=== PATIENT | male | born 1955 | race Caucasian/White ===

== ENCOUNTER 2017-08-01 13:12 | Inpatient (IN) | payer BC, MEDICAID ==
[2017-08-01] MEDS ORDERED: Levofloxacin 750 MG IVPREMIX(* 750 MG/150 ML BAG IVPB ONE (14:38)
[2017-08-01 15:19] LABS: ABS Basophils 0 10^3/ul (0-0.2); ABS Eosinophils 0.3 10^3/ul (0-0.6); ABS Lymphocytes 1.4 10^3/ul (1.0-4.8); ABS Neutrophils 5.6 10^3/ul (1.5-7.7); ABS Nucleated RBC 0 10^3/ul; Eosinophil % 3.6 % (0-6); Hematocrit 44 % (42-52); Hemoglobin 14.7 g/dl (14.0-18.0); Lymphocyte % 16.4 % (25-47); Mean Corpuscular HGB Conc 33 g/dl (31-36); Mean Corpuscular Hemoglobin 32 pg (27-31); Mean Corpuscular Volume 96 fL (80-94); Mean Platelet Volume 8 um3 (7.4-10.4); Nucleated Red Blood Cells % 0; Platelet Count 215 10^3/ul (150-450); Red Blood Count 4.58 10^6/ul (4.0-5.4); Red Cell Distribution Width 14 % (10.5-15); White Blood Count 8.3 10^3/ul (3.5-10.8)
[2017-08-01] MEDS ORDERED: LORazepam INJ* 2 MG/ML 1 ML VIAL IV PUSH ONE ×2 (15:27→16:31)
[2017-08-01 15:35] LABS: INR 1.01 (0.77-1.02)
[2017-08-01 15:36] LABS: EGFR Non-African American 100.9 (>60)
[2017-08-01] MEDS ORDERED: Morphine INJ* 4 MG/ML 1 ML CARPUJECT IV ONE (16:30)
--- NOTE | 2017-08-01 16:57 | ED ---
Skin Complaint - HPI Summary HPI Summary: Patient is a 62yo M with a history of dementia and parkinsons arrives to the ED from wound clinic with . He is currently living at [facility]. He has been on antibiotics for 2 weeks (clindamycin) for the thumb infection, however it appears to be woresening and now having more depth, possibly to the bone. Wound clinic sent him directly here. He has not had any fevers, sweats or chills. Patient is non-verbal. His right hand is severely contracted and it is hard to evaluated. Patient remains on levodopa and ativan daily. DNR status. healthcare proxy. - History of Current Complaint Chief Complaint: EDExtremityUpper Time Seen by Provider: 08/01/17 14:10 Stated Complaint: RT THUMB INFECTION-SENT F/WOUND CTR Hx Obtained From: Family/Barmaid Onset/Duration: Started Weeks Ago, Atraumatic Skin Exposure Onset/Duration: Hours Ago Timing: Constant Onset Severity: Moderate Current Severity: Moderate Pain Intensity: 0 Pain Scale Used: Adult Non Verbal Skin Location: Hand Character: Swelling, Pruritus, Pain Aggravating Symptom(s): Nothing Alleviating Symptom(s): Nothing Associated Signs & Symptoms: Drainage, Red Streaks, Joint Swelling - Allergy/Home Medications Allergies/Adverse Reactions: Allergies Allergy/AdvReac Type Severity Reaction Status Date / Time Sulfa Antibiotics Allergy Rash Verified 08/01/17 14:16 Home Medications: Home Medications Acetaminophen TAB* [Tylenol TAB*] 650 mg PO Q4H PRN MDD 3000mg 08/01/17 [ History Confirmed 08/01/17] Carbidopa/Levodop 25/100 MG(*) [Sinemet 25/100 TAB(*)] 3 tab PO .@0700, 1130, 1800 08/01/17 [History Confirmed 08/01/17] Glycerin ADULT SUPP* 1 supp WV DAILY PRN 08/01/17 [History Confirmed 08/01/17] Ibuprofen TAB* [Advil TAB*] 400 mg PO Q8H 08/01/17 [History Confirmed 08/01/17] Ibuprofen-Diphenhydramine Citr [Advil Pm] 2 tab PO BEDTIME 08/01/17 [History Confirmed 08/01/17] Ketoconazole 2 % CREAM (NF) [Nizoral 2% CREAM (NF)] 1 applic TOPICAL BID [History Confirmed 08/01/17] LORazepam TAB(*) [Ativan 1 MG TAB (*)] 1 mg PO BID 08/01/17 [History Confirmed 08/01/17] LORazepam TAB(*) [Ativan 1 MG TAB (*)] 2 mg PO BEDTIME 08/01/17 [History Confirmed 08/01/17] Lactulose* 15 ml PO DAILY 08/01/17 [History Confirmed 08/01/17] Magnesium Hydroxide LIQ* [Milk of Magnesia LIQ*] 30 ml PO DAILY PRN 08/01/17 [ History Confirmed 08/01/17] Mometasone Furoate 0.1 % TOPICAL BID 08/01/17 [History Confirmed 08/01/17] Oxybutynin XL TAB* [Ditropan XL TAB*] 10 mg PO DAILY 08/01/17 [History Confirmed 08/01/17] PARoxetine HCL TAB* [Paxil TAB*] 10 mg PO DAILY 08/01/17 [History Confirmed 06/08] Pantoprazole TAB (NF) [Protonix TAB (NF)] 40 mg PO DAILY 08/01/17 [History Confirmed 08/01/17] Sodium Phosphate ADULT ENEMA* [Fleet Enema*] 1 enema WV DAILY PRN 08/01/17 [ History Confirmed 08/01/17] Zolpidem CR (NF) [Ambien CR (NF)] 12.5 mg PO BEDTIME 08/01/17 [History Confirmed 08/01/17] PMH/Surg Hx/FS Hx/Imm Hx Previously Healthy: No - Immunization History Hx Pertussis Vaccination: No Immunizations Up to Date: Unable to Obtain/Confirm Infectious Disease History: No Infectious Disease History: Denies: Traveled Outside the [place] in Last 30 Days - Social History Occupation: Unemployed [facility] Alcohol Use: Occasionally Hx Substance Use: Yes Substance Use Type: Reports: Prescribed Hx Tobacco Use: Yes Smoking Status (MU): Former Smoker Review of Systems Constitutional: Negative Negative: Fever, Chills, Fatigue Eyes: Negative Cardiovascular: Negative Respiratory: Negative Genitourinary: Negative Positive: no symptoms reported, see HPI Positive: Arthralgia, Myalgia Positive: Rash Neurological: Negative All Other Systems Reviewed And Are Negative: Yes Physical Exam Triage Information Reviewed: Yes Vital Signs On Initial Exam: Initial Vitals Temp Pulse Resp BP Pulse Ox 97.8 F 89 20 112/49 94 08/01/17 13:16 08/01/17 13:16 08/01/17 13:16 08/01/17 13:16 08/01/17 13:16 Vital Signs Reviewed: Yes Appearance: Positive: Well-Appearing, Well-Nourished Skin: Positive: Tender, Weeping Skin/Lesions Head/Face: Positive: Normal Head/Face Inspection Eyes: Positive: EOMI, SWATI, Conjunctiva Clear Neck: Positive: Supple, No Lymphadenopathy Respiratory/Lung Sounds: Positive: Clear to Auscultation, Breath Sounds Present Cardiovascular: Positive: RRR, Pulses are Symmetrical in both Upper and Lower Extremities Musculoskeletal: Positive: Pain @ - right thumb with swelling and erythema Neurological: Positive: Other - non-verbal Psychiatric: Positive: Normal, Affect/Mood Appropriate AVPU Assessment: Alert Diagnostics - Vital Signs Vital Signs Temp Pulse Resp BP Pulse Ox 08/01/17 16:49 16 08/01/17 16:41 16 08/01/17 15:38 16 08/01/17 13:16 97.8 F 89 20 112/49 94 - Laboratory Lab Results: Lab Results 08/01/17 08/01/17 08/01/17 Range/Units 15:06 15:06 15:06 WBC 8.3 (3.5-10.8) 10^3/ul RBC 4.58 (4.0-5.4) 10^6/ul Hgb 14.7 (14.0-18.0) g/dl Hct 44 (42-52) % MCV 96 H (80-94) fL MCH 32 H (27-31) pg MCHC 33 (31-36) g/dl RDW 14 (10.5-15) % Plt Count 215 (150-450) 10^3/ul MPV 8 (7.4-10.4) um3 Neut % (Auto) 67.8 (38-83) % Lymph % (Auto) 16.4 L (25-47) % Ida % (Auto) 11.7 H (1-9) % Eos % (Auto) 3.6 (0-6) % Baso % (Auto) 0.5 (0-2) % Absolute Neuts (auto) 5.6 (1.5-7.7) 10^3/ul Absolute Lymphs (auto) 1.4 (1.0-4.8) 10^3/ul Absolute Monos (auto) 1.0 H (0-0.8) 10^3/ul Absolute Eos (auto) 0.3 (0-0.6) 10^3/ul Absolute Basos (auto) 0 (0-0.2) 10^3/ul Absolute Nucleated RBC 0 10^3/ul Nucleated RBC % 0 ESR 46 H (0-20) mm/Hr INR (Anticoag Therapy) (0.77-1.02) Sodium 138 (133-145) mmol/L Potassium 4.4 (3.5-5.0) mmol/L Chloride 103 (101-111) mmol/L Carbon Dioxide 28 (22-32) mmol/L Anion Gap 7 (2-11) mmol/L BUN 30 H (6-24) mg/dL Creatinine 0.78 (0.67-1.17) mg/dL Est GFR ( Amer) 129.7 (>60) Est GFR (Non-Af Amer) 100.9 (>60) BUN/Creatinine Ratio 38.5 H (8-20) Glucose 100 (70-100) mg/dL Lactic Acid 1.9 (0.5-2.0) mmol/L Calcium 9.7 (8.6-10.3) mg/dL Total Bilirubin 0.40 (0.2-1.0) mg/dL AST 18 (13-39) U/L ALT 5 L (7-52) U/L Alkaline Phosphatase 64 (34-104) U/L C-Reactive Protein 55.27 H (< 5.00) mg/L Total Protein 7.3 (6.4-8.9) g/dL Albumin 4.2 (3.2-5.2) g/dL Globulin 3.1 (2-4) g/dL Albumin/Globulin Ratio 1.4 (1-3) 08/01/17 Range/Units 15:06 WBC (3.5-10.8) 10^3/ul RBC (4.0-5.4) 10^6/ul Hgb (14.0-18.0) g/dl Hct (42-52) % MCV (80-94) fL MCH (27-31) pg MCHC (31-36) g/dl RDW (10.5-15) % Plt Count (150-450) 10^3/ul MPV (7.4-10.4) um3 Neut % (Auto) (38-83) % Lymph % (Auto) (25-47) % Ida % (Auto) (1-9) % Eos % (Auto) (0-6) % Baso % (Auto) (0-2) % Absolute Neuts (auto) (1.5-7.7) 10^3/ul Absolute Lymphs (auto) (1.0-4.8) 10^3/ul Absolute Monos (auto) (0-0.8) 10^3/ul Absolute Eos (auto) (0-0.6) 10^3/ul Absolute Basos (auto) (0-0.2) 10^3/ul Absolute Nucleated RBC 10^3/ul Nucleated RBC % ESR (0-20) mm/Hr INR (Anticoag Therapy) 1.01 (0.77-1.02) Sodium (133-145) mmol/L Potassium (3.5-5.0) mmol/L Chloride (101-111) mmol/L Carbon Dioxide (22-32) mmol/L Anion Gap (2-11) mmol/L BUN (6-24) mg/dL Creatinine (0.67-1.17) mg/dL Est GFR ( Amer) (>60) Est GFR (Non-Af Amer) (>60) BUN/Creatinine Ratio (8-20) Glucose (70-100) mg/dL Lactic Acid (0.5-2.0) mmol/L Calcium (8.6-10.3) mg/dL Total Bilirubin (0.2-1.0) mg/dL AST (13-39) U/L ALT (7-52) U/L Alkaline Phosphatase (34-104) U/L C-Reactive Protein (< 5.00) mg/L Total Protein (6.4-8.9) g/dL Albumin (3.2-5.2) g/dL Globulin (2-4) g/dL Albumin/Globulin Ratio (1-3) Result Diagrams: 08/01/17 15:06 08/01/17 15:06 Lab Statement: Any lab studies that have been ordered have been reviewed, and results considered in the medical decision making process. Course/Dx - Course Course Of Treatment: Patient is evaluated for right thumb infection which is extending into the first finger of the right hand. Erythema, warmth and swelling to the thumb and hand with ulcerations to the ulnar side of the thumb and radial side of the first finger. He is given levaquin 750mg IV and labs obtained. Blood cultures obtained prior to abx starting. Hospitalist called at 5pm. Xray obtained of the area. He is given ativan 1mg IV with slight reduction in contration. After 30 minutes, he remains in contraction and is given 4mg morphine and 1mg ativan IV. It is difficult to obtain a good image of the severity of the infection. Failing outpatient abx x [address] Mcgowan called who agrees to admit. Wound culture obtained. IMPRESSION: LIMITED SINGLE VIEW EXAMINATION. NO DEFINITIVE ACUTE BONY FINDINGS. SUGGEST. ADDITIONAL IMAGING CLINICALLY INDICATED. - Differential Diagnoses - Skin Complaint Differential Diagnoses: Cellulitis, Other - osteomyelitis - Diagnoses Provider Diagnoses: Infection of thumb Discharge - Discharge Plan Condition: Stable Disposition: ADMITTED TO [facility]
--- NOTE | 2017-08-01 18:13 | RAD ---
INDICATION: Right thumb injury COMPARISON: None TECHNIQUE: A single lateral view is submitted . FINDINGS: The patient has contracture deformities which combined with only a single view is also very limited examination. No definitive acute bony finding is noted. IMPRESSION: LIMITED SINGLE VIEW EXAMINATION. NO DEFINITIVE ACUTE BONY FINDINGS. SUGGEST ADDITIONAL IMAGING CLINICALLY INDICATED.
[2017-08-01] MEDS ORDERED: Magnesium Hydroxide LIQ* 30 ML UDC PO PRN (21:54)
[2017-08-01] MEDS ORDERED: Vancomycin per Pharmacy* NOTE FOLLOW UP PRN (21:54)
[2017-08-01] MEDS ORDERED: Sodium Phosphate ADULT ENEMA* 118 ml bottle PR PRN (21:54)
[2017-08-01] MEDS ORDERED: Glycerin ADULT SUPP PR PRN (21:54)
[2017-08-01] MEDS ORDERED: NS 0.9% 1000 ML* 1,000 ML IV SCH (22:00)
[2017-08-01] MEDS: Cefepime 2 GM in Dextrose(*) 2 GM/50 ML BAG IV SCH (23:07)
[2017-08-01] MEDS: Heparin VIAL(*) 5000 UNITS/ML VIAL (FIVE THOUSAND) SUBCUT SCH (23:07)
[2017-08-01] MEDS: Carbidopa/Levodop 25/100 MG TAB(*) PO SCH (23:07)
[2017-08-01] MEDS ORDERED: Vancomycin(*) 1,500 MG in NS 0.9% 250 ML* 250 ML IVPB ONE (23:30)
--- NOTE | 2017-08-02 00:14 | HP ---
CC: Sofi Lara MD; [facility] * HISTORY AND PHYSICAL: DATE OF ADMISSION: 08/01/17 PRIMARY CARE PROVIDER: [facility]. ATTENDING PHYSICIAN: Kecia Greene MD * (dictated by Georgette Interiano NP). CHIEF COMPLAINT: Right hand infection. HISTORY OF PRESENT ILLNESS: Mr. Sanderson is a 62-year-old male with past medical history significant for Parkinson disease, dementia, hypertension, psoriasis, insomnia, and anxiety, who presented to the hospital from the wound care center. This history was obtained from the patient's as he is non-verbal. According to the patient's , he is being treated at [facility] for a right hand infection. She states she was notified earlier this week about a hand infection and an appointment was set up with the wound clinic. They presented to the wound clinic today for consultation, at which time they were then directed to the emergency room. According to the records from [facility], it appears the patient was initially on a 10-day course of clindamycin starting around 06/23/17 and then on another 10-day course of clindamycin starting on 07/15/17. It appears the patient has previously followed with the wound clinic for other skin issues and wounds in the past. While in the emergency room, the patient had labs showing no leukocytosis. He was afebrile. He had a limited x-ray of his right hand showing no acute bony deformities, although this was a poor quality x-ray in only 1 view due to the patient's right hand contracture. He was noted to have a significant amount of erythema to his right thumb first finger and middle finger. Due to the patient' s cellulitis being non-responsive to outpatient clindamycin, the hospitalists were asked to evaluate the patient for admission. PAST MEDICAL HISTORY: 1. Parkinson disease. 2. Dementia. 3. Hypertension. 4. Psoriasis. 5. Insomnia. 6. Anxiety. PAST SURGICAL HISTORY: 1. Status post a total hip replacement. 2. Status post knee arthroscopy. HOME MEDICATIONS: Include: 1. Mometasone furoate 0.1% topical twice daily. 2. Ketoconazole 2% cream apply topical twice daily. 3. Acetaminophen 650 mg oral every 4 hours as needed for pain. 4. Fleet enema, 1 enema per rectum daily as needed for constipation. 5. Milk of magnesia 30 mL oral daily as needed for constipation. 6. Glycerin suppository 1 per rectum daily as needed for constipation. 7. Ambien CR 12.5 mg oral daily at bedtime. 8. Lorazepam 2 mg oral daily at bedtime. 9. Advil PM 2 tablets oral daily at bedtime. 10. Ibuprofen 400 mg oral every 8 hours. 11. Paxil 10 mg oral daily. 12. Sinemet 25/100 three tablets oral at 7 a.m., 11:30 a.m., and 1800. 13. Protonix 40 mg oral daily. 14. Oxybutynin 10 mg oral daily. 15. Lactulose 15 mg oral daily. 16. Lorazepam 1 mg oral twice daily. ALLERGIES: SULFA. FAMILY HISTORY: The patient's is not familiar with his family history, but does not recall any significant family history of diabetes, heart disease, or cancer. SOCIAL HISTORY: The patient does not smoke, drink alcohol, or use recreational drugs. He currently resides at [facility]. His , Millie Sanderson, will be his surrogate decision maker in the event he is unable to make decisions for himself. REVIEW OF SYSTEMS: I was unable to perform a review of systems due to the patient's dementia and he is nonverbal, although the patient's does deny knowledge of any fevers or chills. PHYSICAL EXAMINATION GENERAL APPEARANCE: The patient is alert, pleasant, appears to be in no acute distress. VITAL SIGNS: Temperature 99.2, heart rate 119, respiratory rate 28, O2 sat 92% on room air, blood pressure 131/69. HEENT: Normocephalic, atraumatic. Pupils are equal and reactive to light. Extraocular movements are intact. RESPIRATORY: There is no accessory muscle use. Lungs are clear to auscultation bilaterally. CARDIOVASCULAR: Regular rate and rhythm. S1 and S2 present. There are no murmurs, rubs, or gallops. ABDOMEN: Soft, nontender, nondistended. Bowel sounds present x4. EXTREMITIES: There is trace bilateral lower extremity edema. DP and PT pulses are 2+ and symmetric. The patient's right hand first, second, and third digits all have erythema and swelling and are warm to the touch. MUSCULOSKELETAL: There is no clubbing or cyanosis noted. The patient is severely contracted in his right upper extremity, most notably in his hand and fingers. He is able to move his left arm. NEUROLOGICAL: The patient is alert. Unable to determine orientation as he is nonverbal. PSYCHOLOGICAL: The patient is calm and cooperative. SKIN: The patient has small area of erythema to his left forearm that is slightly blanchable. In addition, he has some erythema to his right elbow and some scabbing. He has erythema and swelling to his right first, second, and third digits. DIAGNOSTIC STUDIES/LABORATORY DATA: Sodium 138, potassium 4.4, chloride 103, CO2 of 28, BUN 30, creatinine 0.78, glucose 100. ESR 46, CRP 55.27. White blood cell count 8.3, hemoglobin 14.7, hematocrit 44, platelet count 215,000. Right hand x-ray from today. Radiologist's impression: Limited single view examination. No definitive acute bony findings. Suggest additional imaging as clinically indicated. IMPRESSION: Mr. Sanderson is a 62-year-old male with past medical history significant for hypertension, Parkinson disease, dementia, psoriasis, and anxiety, who presented to the emergency room from the wound clinic today for a right hand infection. He will be admitted as an inpatient for right hand cellulitis with possible osteomyelitis. ASSESSMENT/PLAN: 1. Right hand cellulitis. I suspect the patient potentially could also have osteomyelitis and we are unable to get good imaging of his hand with a plain x- ray due to the severe contractures of his hand and the inability to really get his hand off his chest. For now, I am going to hold on any further imaging. It is also very difficult to assess the hand. I suspected that he potentially has breakdown down to the bone, but again I was unable to get his hand or fingers into a position, which I could really evaluate as every time I tried to move his upper extremity at all, his muscles tightened further. He had a wound culture in the emergency room showing a PCR negative for MRSA and MSSA. He received a dose of Levaquin. He had blood cultures drawn. He is afebrile, had no leukocytosis. My plan will be to place him on vancomycin and cefepime. We should ask Infectious Disease to consult on the patient in the morning. We should also ask one of the orthopedic hand specialists to evaluate the patient as he potentially may need surgical debridement, although this may be very difficult due to his contracture. Due to the significance of this contracture, going forward if there are no reasonable options for treatment, palliative care consult should also be considered. It is noted that upon arrival to the floor, he was tachycardic with tachypnea. I suspect this was secondary to anxiety, but we will continue to follow. 2. Parkinson disease. The patient will be continued on his home medications. He should be turned frequently to prevent any further breakdown. 3. Hypertension. It appears in the past the patient has been on lisinopril for hypertension. It does not appear that he is currently on any antihypertensives. He is normotensive on arrival. For now, we are going to just monitor his blood pressures. 3. Depression. The patient will be continued on Paxil. 4. Insomnia. We will continue the patient on his Ativan at bedtime. We do not carry controlled release Ambien. For now, we will hold and see how he does, and we can consider adding in medications to assist him with sleep if he requires those. 5. Fluids, electrolytes and nutrition. Regular diet. 6. Code status. Do not resuscitate. 7. DVT prophylaxis. He is a high risk and will be placed on subcu heparin. 8. Disposition. Inpatient. TIME SPENT: Time for this admission was approximately 60 minutes, greater than half of that was spent with his discussing medications, past medical history and the events leading up to his arrival today and performing the physical examination. The case has been reviewed with the attending, Dr. Greene , who agrees with the plan of care. Reviewed by JOSE MANUEL AUSTIN 08/07/17 [id number]/[facility] #: [id number] AIYANA
[2017-08-02] MEDS: Acetaminophen TAB* 325 MG PO PRN (04:01)
[2017-08-02] MEDS: Heparin VIAL(*) 5000 UNITS/ML VIAL (FIVE THOUSAND) SUBCUT SCH ×3 (05:48→22:16)
[2017-08-02] MEDS: Carbidopa/Levodop 25/100 MG TAB(*) PO SCH ×3 (07:19→18:05)
[2017-08-02] MEDS: LORazepam TAB(*) 1 MG PO SCH ×3 (07:19→19:57)
[2017-08-02 07:54] LABS: ABS Basophils 0 10^3/ul (0-0.2); ABS Eosinophils 0.2 10^3/ul (0-0.6); ABS Lymphocytes 1.3 10^3/ul (1.0-4.8); ABS Monocytes 0.9 10^3/ul (0-0.8); ABS Neutrophils 5.3 10^3/ul (1.5-7.7); ABS Nucleated RBC 0 10^3/ul; Hematocrit 41 % (42-52); Hemoglobin 13.9 g/dl (14.0-18.0); Mean Corpuscular HGB Conc 34 g/dl (31-36); Mean Corpuscular Hemoglobin 32 pg (27-31); Mean Corpuscular Volume 94 fL (80-94); Mean Platelet Volume 8 um3 (7.4-10.4); Nucleated Red Blood Cells % 0.1; Platelet Count 188 10^3/ul (150-450); Red Blood Count 4.32 10^6/ul (4.0-5.4); Red Cell Distribution Width 13 % (10.5-15); White Blood Count 7.6 10^3/ul (3.5-10.8)
[2017-08-02] MEDS: Oxybutynin XL TAB* 5 MG PO SCH (07:59)
[2017-08-02] MEDS: Lactulose* 15 ML UDC PO SCH (07:59)
[2017-08-02] MEDS: Omeprazole CAP* 20 MG PO SCH (07:59)
[2017-08-02] MEDS: Vancomycin(*) 1,250 MG in NS 0.9% 250 ML* 250 ML IVPB SCH ×2 (07:59→17:08)
[2017-08-02] MEDS: PARoxetine HCL TAB* 10 MG PO SCH (08:00)
[2017-08-02 08:14] LABS: EGFR Non-African American 120.2 (>60)
[2017-08-02] MEDS: Cefepime 2 GM in Dextrose(*) 2 GM/50 ML BAG IV SCH ×2 (10:47→22:16)
[2017-08-02] MEDS ORDERED: LORazepam INJ* 2 MG/ML 1 ML VIAL IV PUSH PRN ×2 (15:42→16:20)
--- NOTE | 2017-08-02 16:12 | PN ---
Subjective Date of Service: 08/02/17 Interval History: Patient unable to participate in interview due to non-verbal state. Discussed case with and answered all questions to satisfaction. Family History: Unchanged from Admission Social History: Unchanged from Admission Past Medical History: Findings - Patient's Neurological disease is PSP instead of Parkinson's. Objective Active Medications: Acetaminophen (Tylenol Tab*) 650 mg PO Q4H PRN PRN Reason: FEVER/PAIN Last Admin: 08/02/17 04:01 Dose: 650 mg Carbidopa/Levodopa (Sinemet 25/100 Tab(*)) 3 tab PO 0700,1130,1800 [facility] Last Admin: 08/02/17 13:02 Dose: 3 tab Glycerin (Glycerin Adult Supp*) 1 supp RI DAILY PRN PRN Reason: CONSTIPATION Heparin Sodium (Porcine) (Heparin Vial(*)) 5,000 units SUBCUT Q8HR [facility] Last Admin: 08/02/17 13:40 Dose: 5,000 units Cefepime HCl (Maxipime 2 Gm In Dextrose Duplex (*)) 2 gm in 50 mls @ 100 mls/ hr IV Q12H [facility] Last Admin: 08/02/17 10:47 Dose: 100 mls/hr Vancomycin HCl 1,250 mg/ (Sodium Chloride) 250 mls @ 166.667 mls/hr IVPB Q8H [facility] Last Admin: 08/02/17 07:59 Dose: 166.667 mls/hr Ibuprofen (Motrin Tab*) 400 mg PO Q8H PRN PRN Reason: PAIN Lactulose (Lactulose*) 15 ml PO DAILY [facility] Last Admin: 08/02/17 07:59 Dose: 15 ml Lorazepam (Ativan Tab(*)) 1 mg PO BID@0700,1400 [facility] Last Admin: 08/02/17 13:45 Dose: 1 mg Lorazepam (Ativan Tab(*)) 2 mg PO BEDTIME [facility] Lorazepam (Ativan Inj*) 1 mg IV PUSH ONCE PRN PRN Reason: ANXIETY Stop: 08/02/17 23:59 Magnesium Hydroxide (Milk Of Magnesia Liq*) 30 ml PO DAILY PRN PRN Reason: CONGESTION Omeprazole (Prilosec Cap*) 20 mg PO DAILY@0730 [facility] Last Admin: 08/02/17 07:59 Dose: 20 mg Oxybutynin Chloride (Ditropan Xl Tab*) 10 mg PO DAILY [facility] Last Admin: 08/02/17 07:59 Dose: 10 mg Paroxetine HCl (Paxil Tab*) 10 mg PO DAILY [facility] Last Admin: 08/02/17 08:00 Dose: 10 mg Pharmacy Consult (Vancomycin Per Pharmacy*) 1 note FOLLOW UP . PRN PRN Reason: PER PROTOCOL Pharmacy Profile Note (Vancomycin Trough Check) 1 note FOLLOW UP 0730 ONE Stop: 08/03/17 07:31 Sodium Biphosphate/Sodium Phosphate (Fleet Enema*) 1 bottle RI DAILY PRN PRN Reason: CONSTIPATION Vital Signs - 8 hr 08/02/17 08/02/17 09:15 13:45 Respiratory 16 16 Rate Oxygen Devices in Use Now: None Appearance: Patient is a 62yo male who appears stated age, has mask-like facies and is sitting in the bed in [facility]. Eyes: No Scleral Icterus, PERRLA Ears/Nose/Mouth/Throat: NL Teeth, Lips, Gums, Clear Oropharnyx, Mucous Membranes Moist Neck: NL Appearance and Movements; NL JVP, Trachea Midline Respiratory: Symmetrical Chest Expansion and Respiratory Effort, - - Mild expiratory crackles in bases of B/L Lungs Cardiovascular: NL Sounds; No Murmurs; No JVD, RRR, No Edema Abdominal: NL Sounds; No Tenderness; No Distention, No Hepatosplenomegaly Lymphatic: No Cervical Adenopathy Extremities: No Edema, No Clubbing, Cyanosis Skin: No Nodules or Sclerosis, - - Severe erythema and edema of first and second fingers on left hand with discharge and skin breakdown in the intertriginous areas. Large atrophic scars on left inner thigh. Neurological: - - Non-verbal, severe contractures on right arm. Mask-like facies. CN II-XII grossly intact on limited exam. Result Diagrams: 08/02/17 07:37 08/02/17 07:37 Additional Lab and Data: Lab Results Microbiology and Other Data: Microbiology 08/01/17 18:20 Skin and Soft Tissue MRSA/MSSA (PCR - Final Hand Right Mrsa Negative S.aureus Negative Gram Stain - Final Wound Culture - Preliminary Pseudomonas Aeruginosa Corynebacterium Striatum 08/01/17 19:26 Nasal Screen MRSA (PCR)(ALYSE) - Final Nasal Mrsa Negative Assess/Plan/Problems-Billing Assessment: Patient is a 62yo male with a PMH significant for PSP, HTN, Psoriasis, and anxiety who presents with 1 month of redness and swelling of his right hand which has been getting progressively worse despite 20 days total of clindamycin treatment who is admitted for IV antibiotics and assessment for osteomyelitis. - Patient Problems (1) Cellulitis of hand, right Current Visit: Yes Status: Acute Code(s): L03.113 - CELLULITIS OF RIGHT UPPER LIMB SNOMED Code(s): 30822973 Comment: Appreciate ID consult. Will get MRI to assess for osteomyelitis, will get CT if not tolerated. Continue Cefepime and Vancomycin. No signs of systemic toxicity. Wound consult pending. (2) PSP (progressive supranuclear palsy) Current Visit: Yes Status: Acute Code(s): G23.1 - PROGRESSIVE SUPRANUCLEAR OPHTHALMOPLEGIA SNOMED Code(s): 26519897 Comment: Continue Sinemet. Patient is non-verbal due to dementia. (3) Anxiety Current Visit: Yes Status: Acute Code(s): F41.9 - ANXIETY DISORDER, UNSPECIFIED SNOMED Code(s): 85854505 Comment: Continue ativan. Not well controlled. May give 2 additonal doses of ativan for MRI if needed. (4) Insomnia Current Visit: Yes Status: Acute Code(s): G47.00 - INSOMNIA, UNSPECIFIED SNOMED Code(s): 399005779 Comment: Continue ativan PRN at bedtime since ambien ER not available. (5) HTN (hypertension) Current Visit: Yes Status: Acute Code(s): I10 - ESSENTIAL (PRIMARY) HYPERTENSION SNOMED Code(s): 61087073 Comment: Intermittently hypertensive, on no medications at home. Will monitor. (6) DVT prophylaxis Current Visit: Yes Status: Acute Code(s): MRA2773 - SNOMED Code(s): 141982976 Comment: Heparin SubQ (7) DNR (do not resuscitate) Current Visit: Yes Status: Acute Status and Disposition: Patient is admitted inpatient. Will discharge when medically stable.
--- NOTE | 2017-08-03 01:06 | CONS ---
CONSULTATION REPORT: DATE OF CONSULT: 08/02/17 REQUESTING PROVIDER: SHARIF Bolton CONSULTING SERVICE: Infectious Disease. REASON FOR CONSULTATION: Right hand infection. IMPRESSION: 1. Right hand severe contracture and cellulitis of the thumb and index finger for about the last 5 w eeks and has had 2 courses of antibiotics with some improvement. There is a soft tissue ulcer, which I was able to see on an image that his had on her phone. I am concerned that underlying osteomy elitis may explain his symptoms. There may not be osteomyelitis and it may just be that the antibiot ics he was taking did not cover pseudomonas he was growing; however, that pseudomonas could just be c olonization of a good place to grow organisms. 2. Progressive supranuclear palsy. 3. SULFA allergy. RECOMMENDATIONS: Continue broad-spectrum antibiotics and we will get an MRI if possible. I think if it comes to needing intubation to do it, we do not need to go that far and we would just get a CT sc an in that case. HISTORY OF PRESENT ILLNESS: This 62-year-old man with progressive supranuclear palsy and right hand infection. He cannot provide any of the history as he cannot speak. It is obtained instead from rev iew of the medical record, discussion with SHARIF Brock and discussion with the patient's . He was at [facility] for last few weeks. About a few weeks ago, they noticed some redness in the thumb. He started on oral antibiotics. He has had a little bit of improvement, then after st opping, apparently the symptoms worsened, he was placed on clindamycin and referred to the wound clin ic where he was seen on the , they directed him to the emergency room. He has had redness and sw elling of the thumb first and second digits as well as the hand in between. A swab was taken off the small ulcer, which showed 4+ neutrophils, 3+ epithelial cells, Gram-positive cocci, Gram- positive b acilli, Gram-negative coccobacilli. The cultures growing Pseudomonas and Corynebacterium. Blood cul tures taken on admission are negative. He was started on vancomycin and cefepime last night. He is tolerating that well. Swelling and redness is about the same according to the patient's . PAST MEDICAL HISTORY: 1. Initially Parkinson's disease, now diagnosed with progressive supranuclear palsy. 2. Dementia. 3. Hypertension. 4. Psoriasis. 5. Insomnia. 6. Anxiety. 7. Status post hip arthroplasty. 8. Status post knee arthroscopy. ALLERGIES: SULFA. MEDICATIONS: 1. Tylenol. 2. Sinemet. 3. Glycerin suppository. 4. Heparin subcutaneous injection. 5. Ibuprofen. 6. Lactulose. 7. Ativan at bedtime and then twice a day. 8. Cefepime 2 g IV every 12 hours. 9. Vancomycin 1250 mg every 8 hours. SOCIAL HISTORY: He lives at [facility]. He is . He has no travel or sick contacts. FAMILY HISTORY: No recurrent infections. His is unsure of other significant family history. REVIEW OF SYSTEMS: Unable to perform as the patient is unable to participate. PHYSICAL EXAMINATION: Vital Signs: Temperature is 37.7, heart rate 99, respiratory rate 12, blood p ressure 157/82, O2 sat 96% on room air. In general, he is awake, he regards and does not answer ques tions or responds. HEENT: There is no conjunctival hemorrhage. Oropharynx: Without lesions. Neck is supple. Neurologic: He has a right hand contracture. When I tried to examine his hand, he did a lso tremor in the left arm and I noted that the right arm is contracted. I cannot open the hand to e valuate it. Lymph Nodes: There is no inguinal, axillary, or epitrochlear lymphadenopathy. Heart franco s regular rate and rhythm without murmurs, rubs, or gallops. Lungs: Anterior breath sounds are jasbir r. Abdomen: Soft, nontender, nondistended. There are bowel sounds present. Skin: There is no rash or splinter hemorrhages. Musculoskeletal: The right hand, there is flexion contracture. The first finger is erythematous, edematous and extends up into the second finger and thumb. The fingers ludivina ot be opened to look inside. DIAGNOSTIC STUDIES/LAB DATA: Creatinine 0.6, CRP 55, white blood cell count 7, hemoglobin 13, platel ets 188. Please see impressions and recommendations outlined above, which I have discussed with SHARIF Bolton. Thanks for asking me to see Mr. Sanderson in consultation. [id number]/[facility] #: [id number]
[2017-08-03] MEDS: Heparin VIAL(*) 5000 UNITS/ML VIAL (FIVE THOUSAND) SUBCUT SCH ×3 (05:34→22:20)
[2017-08-03] MEDS: Carbidopa/Levodop 25/100 MG TAB(*) PO SCH ×3 (06:35→17:28)
[2017-08-03] MEDS: LORazepam TAB(*) 1 MG PO SCH ×3 (06:36→21:15)
[2017-08-03] MEDS: Omeprazole CAP* 20 MG PO SCH (06:36)
[2017-08-03] MEDS ORDERED: Vancomycin Trough Check NOTE FOLLOW UP ONE (07:30)
[2017-08-03 07:33] LABS: ABS Basophils 0 10^3/ul (0-0.2); ABS Eosinophils 0.1 10^3/ul (0-0.6); ABS Lymphocytes 1.3 10^3/ul (1.0-4.8); ABS Monocytes 0.8 10^3/ul (0-0.8); ABS Neutrophils 4.6 10^3/ul (1.5-7.7); ABS Nucleated RBC 0 10^3/ul; Eosinophil % 1.5 % (0-6); Hematocrit 42 % (42-52); Hemoglobin 14.7 g/dl (14.0-18.0); Lymphocyte % 18.7 % (25-47); Mean Corpuscular HGB Conc 35 g/dl (31-36); Mean Corpuscular Hemoglobin 33 pg (27-31); Mean Corpuscular Volume 94 fL (80-94); Mean Platelet Volume 9 um3 (7.4-10.4); Nucleated Red Blood Cells % 0; Platelet Count 206 10^3/ul (150-450); Red Blood Count 4.47 10^6/ul (4.0-5.4); Red Cell Distribution Width 13 % (10.5-15); White Blood Count 6.8 10^3/ul (3.5-10.8)
[2017-08-03 07:48] LABS: EGFR Non-African American 120.2 (>60)
[2017-08-03] MEDS: Vancomycin(*) 1,250 MG in NS 0.9% 250 ML* 250 ML IVPB SCH ×5 (08:00→23:53)
[2017-08-03] MEDS: Oxybutynin XL TAB* 5 MG PO SCH (08:20)
[2017-08-03] MEDS: Lactulose* 15 ML UDC PO SCH (08:21)
[2017-08-03] MEDS: PARoxetine HCL TAB* 10 MG PO SCH (08:21)
[2017-08-03] MEDS ORDERED: Pneumococcal *Vac Polyvalent 0.5 ML VIAL IM ONE (09:00)
[2017-08-03] MEDS ORDERED: Influenza VAC *QUAD* 2017-18* 0.5 ML SYRINGE IM ONE (09:00)
[2017-08-03] MEDS: Cefepime 2 GM in Dextrose(*) 2 GM/50 ML BAG IV SCH ×2 (10:53→22:20)
--- NOTE | 2017-08-03 14:16 | PN ---
Subjective Date of Service: 08/03/17 Interval History: Patient continues to be in NAD. Patient more communicative, but still unintelligible. ROS unable to be performed. Family History: Unchanged from Admission Social History: Unchanged from Admission Past Medical History: Findings - Patient has PSP. Objective Active Medications: Acetaminophen (Tylenol Tab*) 650 mg PO Q4H PRN PRN Reason: FEVER/PAIN Last Admin: 08/02/17 04:01 Dose: 650 mg Carbidopa/Levodopa (Sinemet 25/100 Tab(*)) 3 tab PO 0700,1130,1800 [facility] Last Admin: 08/03/17 13:10 Dose: 3 tab Glycerin (Glycerin Adult Supp*) 1 supp [place] DAILY PRN PRN Reason: CONSTIPATION Heparin Sodium (Porcine) (Heparin Vial(*)) 5,000 units SUBCUT Q8HR [facility] Last Admin: 08/03/17 13:10 Dose: 5,000 units Cefepime HCl (Maxipime 2 Gm In Dextrose Duplex (*)) 2 gm in 50 mls @ 100 mls/ hr IV Q12H [facility] Last Admin: 08/03/17 10:53 Dose: 100 mls/hr Vancomycin HCl 1,250 mg/ (Sodium Chloride) 250 mls @ 166.667 mls/hr IVPB Q8H [facility] Last Admin: 08/03/17 08:00 Dose: 166.667 mls/hr Ibuprofen (Motrin Tab*) 400 mg PO Q8H PRN PRN Reason: PAIN Lactulose (Lactulose*) 15 ml PO DAILY [facility] Last Admin: 08/03/17 08:21 Dose: 15 ml Lorazepam (Ativan Tab(*)) 1 mg PO BID@0700,1400 [facility] Last Admin: 08/03/17 13:24 Dose: 1 mg Lorazepam (Ativan Tab(*)) 2 mg PO BEDTIME [facility] Last Admin: 08/02/17 19:57 Dose: 2 mg Magnesium Hydroxide (Milk Of Magnesia Liq*) 30 ml PO DAILY PRN PRN Reason: CONGESTION Omeprazole (Prilosec Cap*) 20 mg PO DAILY@0730 [facility] Last Admin: 08/03/17 06:36 Dose: 20 mg Oxybutynin Chloride (Ditropan Xl Tab*) 10 mg PO DAILY [facility] Last Admin: 08/03/17 08:20 Dose: 10 mg Paroxetine HCl (Paxil Tab*) 10 mg PO DAILY KEISHA Last Admin: 08/03/17 08:21 Dose: 10 mg Pharmacy Consult (Vancomycin Per Pharmacy*) 1 note FOLLOW UP . PRN PRN Reason: PER PROTOCOL Sodium Biphosphate/Sodium Phosphate (Fleet Enema*) 1 bottle [place] DAILY PRN PRN Reason: CONSTIPATION Vital Signs - 8 hr 08/03/17 08/03/17 08/03/17 06:36 07:50 08:00 Temperature 98.6 F Pulse Rate 85 Respiratory 18 22 17 Rate Blood Pressure 134/74 (mmHg) O2 Sat by Pulse 93 Oximetry 08/03/17 08/03/17 08:45 13:24 Temperature Pulse Rate Respiratory 19 19 Rate Blood Pressure (mmHg) O2 Sat by Pulse Oximetry Oxygen Devices in Use Now: None Appearance: Patient is a 62yo male who appears stated age and is sitting in the bed in NAD. Eyes: No Scleral Icterus, PERRLA Ears/Nose/Mouth/Throat: NL Teeth, Lips, Gums, Clear Oropharnyx, Mucous Membranes Moist Neck: NL Appearance and Movements; NL JVP, Trachea Midline Respiratory: Symmetrical Chest Expansion and Respiratory Effort, Clear to Auscultation Cardiovascular: NL Sounds; No Murmurs; No JVD, RRR, No Edema Abdominal: NL Sounds; No Tenderness; No Distention, No Hepatosplenomegaly Lymphatic: No Cervical Adenopathy Extremities: No Edema, No Clubbing, Cyanosis, - - left hand contractured with abnormal posturing. Significant erythema and edema particularly of the thumb and first finger and is spreading onto dorsum of hand. Ulcer between thumb and first finger unable to be visualized. Skin: No Nodules or Sclerosis Neurological: - - Non-verbal, unable to cooperate with exam. Result Diagrams: 08/03/17 07:04 08/03/17 07:04 Additional Lab and Data: Lab Results Microbiology and Other Data: Microbiology 08/01/17 18:20 Skin and Soft Tissue MRSA/MSSA (PCR - Final Hand Right Mrsa Negative S.aureus Negative Gram Stain - Final Wound Culture - Preliminary Pseudomonas Aeruginosa Corynebacterium Striatum 08/01/17 19:26 Nasal Screen MRSA (PCR)(ALYSE) - Final Nasal Mrsa Negative Assess/Plan/Problems-Billing Assessment: Patient is a 62yo male with a PMH significant for PSP, HTN, Psoriasis, and anxiety who presents with 1 month of redness and swelling of his right hand which has been getting progressively worse despite 20 days total of clindamycin treatment who is admitted for IV antibiotics and assessment for osteomyelitis. - Patient Problems (1) Cellulitis of hand, right Current Visit: Yes Status: Acute Code(s): L03.113 - CELLULITIS OF RIGHT UPPER LIMB SNOMED Code(s): 07637428 Comment: Appreciate ID consult. Will get MRI to assess for osteomyelitis, will get CT if not tolerated. Continue Cefepime and Vancomycin. No signs of systemic toxicity. Wound consult deferred to orthopedics. Orthopedic consult pending. (2) PSP (progressive supranuclear palsy) Current Visit: Yes Status: Acute Code(s): G23.1 - PROGRESSIVE SUPRANUCLEAR OPHTHALMOPLEGIA SNOMED Code(s): 38953185 Comment: Continue Sinemet. Patient is non-verbal due to dementia. (3) Anxiety Current Visit: Yes Status: Acute Code(s): F41.9 - ANXIETY DISORDER, UNSPECIFIED SNOMED Code(s): 80018739 Comment: Continue ativan. Not well controlled. (4) Insomnia Current Visit: Yes Status: Acute Code(s): G47.00 - INSOMNIA, UNSPECIFIED SNOMED Code(s): 716851141 Comment: Continue ativan PRN at bedtime since ambien ER not available. (5) HTN (hypertension) Current Visit: Yes Status: Acute Code(s): I10 - ESSENTIAL (PRIMARY) HYPERTENSION SNOMED Code(s): 81655419 Comment: Intermittently hypertensive probably due to pain and anxiety, on no medications at home. Will monitor. (6) DVT prophylaxis Current Visit: Yes Status: Acute Code(s): LIE1668 - SNOMED Code(s): 244605701 Comment: Heparin SubQ (7) DNR (do not resuscitate) Current Visit: Yes Status: Acute Status and Disposition: Patient is admitted inpatient. Will discharge when medically stable.
[2017-08-03] MEDS ORDERED: Iohexol 300* (CONTRAST) 10 ML SDV IV ONE (19:20)
--- NOTE | 2017-08-03 21:09 | RAD ---
Indication: Evaluate for osteomyelitis. Contrast: Administered 80.0 ml of OMNIPAQUE 300 mg/ml CT of the right hand was obtained in the axial plane. Sagittal and coronal reconstructed images were obtained. There is focal osteopenia in the distal ulna. Additionally there are photopenic areas in the distal radius near the ulnar styloid process, scaphoid, lunate. The possibility of osteomyelitis is not excluded. No drainable fluid collection is noted although diffuse soft tissue swelling is noted. No drainable collections are noted. IMPRESSION: Areas of focal osteopenia in the distal radius and ulna as well as in the scaphoid and lunate suspicious for osteomyelitis. No drainable fluid collections are noted although diffuse soft tissue swelling is present.
--- NOTE | 2017-08-04 02:25 | CONS ---
CONSULTATION REPORT: DATE OF CONSULTATION: 08/03/17 REASON FOR CONSULTATION: Right hand infection. HISTORY OF PRESENT ILLNESS: The patient is a 62-year-old man with multiple neurologic disorders including Parkinson's disease, dementia, progressive supranuclear palsy as well as medical diagnoses such as hypertension, psoriasis and anxiety, who presented [place] [facility] [place] with a wound about the right hand and concern for infection. Orthopedic Surgery was eventually consulted. According to the Hospitalist history and physical, according to the patient's , he had been treated at [facility] for right hand infection and had an appointment scheduled for the wound clinic locally. The wound clinic saw the patient and directed him to the emergency room at [facility]. According to records from the [facility], the patient had initially been on a course of clindamycin for 10 days around 06/23/17. He was then on a subsequent second course of 10 days of clindamycin starting on 07/15/17. The patient had been previously seen at wound clinic for other wounds. The patient was admitted on 08/01/17 because his cellulitis was nonresponsive to outpatient oral clindamycin. Suspicion was high for osteomyelitis. So, additional imaging was requested, MRI. There was some difficulty with obtaining accurate MRI studies, so a CT scan was also ordered. Wound culture was obtained in the emergency room. A dose of Levaquin was given. Blood cultures drawn. ID was also asked to consult. The patient was also medically managed for Parkinson's disease, hypertension, depression and insomnia. The patient is minimally verbal. One of his nurses reports that earlier today, he gave an intelligible answer to one of her questions. During my conversation with him I asked him questions that he appeared to answer, but I could not understand his answer. PAST MEDICAL HISTORY: This is per Hospitalist H and P as the patient was essentially nonverbal with me. Parkinson's disease, dementia, hypertension, psoriasis, insomnia, anxiety. PAST SURGICAL HISTORY: Total hip arthroplasty, knee arthroscopy. MEDICATIONS: At home: 1. Mometasone topical. 2. Ketoconazole Topical. 3. Acetaminophen. 4. Fleet enema. 5. Milk of magnesia. 6. Glycerin suppository. 7. Ambien. 8. Lorazepam. 9. Advil PM. 10. Ibuprofen. 11. Paxil. 12. Sinemet. 13. Protonix. 14. Oxybutynin. 15. Lactulose. 16. Lorazepam. ALLERGIES: SULFA DRUGS. SOCIAL HISTORY: The patient lives at [facility]. His , Millie Sanderson, is his surrogate decision maker if he is unable to make decisions for himself. REVIEW OF SYSTEMS: There is no report by family of fevers or chills. Due to the patient's nonverbal status, I am unable to assess the remainder of the review of systems. PHYSICAL EXAM: At 7:50 a.m. on 08/20/17, the patient had temperature of 98.6 degrees Fahrenheit oral, heart rate 85, blood pressure 134/74, respiratory rate 22, O2 sat 93% on room air. The patient is in no acute distress although he seemed slightly confused by my presence. The patient was watching TV. The patient has a very highly flexed elbow and wrist. The first webspace between thumb and index finger is significantly compressed as well. In order to evaluate the hand, significant force on the part of both a nurse and myself was required to visualize between the right thumb and index finger. Appropriate dress and hygiene. As stated above, the patient is minimally verbal and I was unable to understand his response to several questions. Right hand exam reveals erythema about the dorsum of the hand at the level of the metacarpals and up through the first dorsal webspace. Much erythema about the ring finger tip as well. There is some erosion of the skin of the radial aspect at of the index finger. There is full thickness erosion of skin and subcutaneous tissue about the ulnar aspect of the thumb. Bone was clearly visible. This seemed to be the head of the proximal phalanx of the thumb. I palpated it and was easily able to smush it, demonstrating a high level of likely osteomyelitis of the proximal phalanx of the thumb. Mild serous drainage from the ulcer of the thumb. Cap refill less than 2 seconds of the fingers. Difficult to discern the patient's level of tenderness at any part of the hand given his minimal responsiveness. LABORATORY DATA: White blood cell count 6.8 today with neutrophil count of 67.1 %. ESR was 46 on 08/01/17. CRP was 55.27 on 08/01/17. IMAGING: X-ray, one view of the right hand on 08/01/17 was reviewed. It shows significant contractures about the right wrist and fingers. Clear osteopenia present throughout bones of the wrist and hand, but difficult to discern any clear erosions, bony. The thumb IP joint and distal phalanx overlap with an index finger or another lesser finger so it is difficult to discern status of those bones. Reviewed report of CT scan right hand from 08/03/17. It was read as showing focal osteopenia in the distal radius and ulna and scaphoid and lunate suspicious for osteomyelitis. No drainable fluid collections appreciated although diffuse soft tissue swelling present. MRI was also partially performed. Because of motion artifact, it was difficult for me to assess as well as Radiology. The MRI, however, does show abnormality of the distal phalanx of the thumb with no uptake on T1 and significant uptake on T2 imaging, consistent with osteomyelitis. ASSESSMENT: 1. Ulcers, right thumb and index finger, skin. 2. Cellulitis, right hand. 3. Osteomyelitis of the right thumb, distal phalanx and proximal phalanx at a minimum. 4. Severe contractures, right upper extremity affecting the elbow, wrist, hand and fingers as it is relevant to this infection. 5. Severe neurologic disorders with Parkinson's, advanced and dementia. PLAN: 1. Continue IV antibiotics as per ID service. 2. I believe at a minimum the patient is going to require amputation of the thumb, at the level of the metacarpophalangeal joint or lower. I defer to my dedicated hand surgical colleagues Dr. Moctezuma or Dr. Ledesma on the best surgical procedure for this complex condition. 3. I marked as best as I could the parameter of the area of erythema about the right hand with a skin marking pen to detect if the area of active cellulitis improves or worsens on IV antibiotics. 4. Continue skin wound care. 5. I will contact Dr. Moctezuma or Dr. Ledesma to see if they would like to see the patient as an inpatient or more electively as an outpatient in clinic. [id number]/[facility] #: [id number] [facility]
[2017-08-04] MEDS: Heparin VIAL(*) 5000 UNITS/ML VIAL (FIVE THOUSAND) SUBCUT SCH ×3 (05:25→21:55)
[2017-08-04] MEDS: Vancomycin(*) 1,250 MG in NS 0.9% 250 ML* 250 ML IVPB SCH ×3 (07:19→23:08)
[2017-08-04] MEDS: Oxybutynin XL TAB* 5 MG PO SCH (07:24)
[2017-08-04] MEDS: LORazepam TAB(*) 1 MG PO SCH ×3 (07:24→21:54)
[2017-08-04] MEDS: Omeprazole CAP* 20 MG PO SCH (07:24)
[2017-08-04] MEDS: Carbidopa/Levodop 25/100 MG TAB(*) PO SCH ×3 (07:24→17:17)
[2017-08-04] MEDS: PARoxetine HCL TAB* 10 MG PO SCH (07:24)
[2017-08-04] MEDS: Lactulose* 15 ML UDC PO SCH (07:25)
[2017-08-04] MEDS: Cefepime 2 GM in Dextrose(*) 2 GM/50 ML BAG IV SCH ×2 (09:43→21:49)
--- NOTE | 2017-08-04 11:57 | PN ---
Subjective Date of Service: 08/04/17 Interval History: Patient is somewhat more agitated this morning. Patient is non-verbal and unable to make needs known. Unable to complete ROS. Family History: Unchanged from Admission Social History: Unchanged from Admission Past Medical History: Findings - Patient has PSP. Objective Active Medications: Acetaminophen (Tylenol Tab*) 650 mg PO Q4H PRN PRN Reason: FEVER/PAIN Last Admin: 08/02/17 04:01 Dose: 650 mg Carbidopa/Levodopa (Sinemet 25/100 Tab(*)) 3 tab PO 0700,1130,1800 [facility] Last Admin: 08/04/17 07:24 Dose: 3 tab Glycerin (Glycerin Adult Supp*) 1 supp [place] DAILY PRN PRN Reason: CONSTIPATION Heparin Sodium (Porcine) (Heparin Vial(*)) 5,000 units SUBCUT Q8HR [facility] Last Admin: 08/04/17 05:25 Dose: 5,000 units Cefepime HCl (Maxipime 2 Gm In Dextrose Duplex (*)) 2 gm in 50 mls @ 100 mls/ hr IV Q12H [facility] Last Admin: 08/04/17 09:43 Dose: 100 mls/hr Vancomycin HCl 1,250 mg/ (Sodium Chloride) 250 mls @ 166.667 mls/hr IVPB Q8H [facility] Last Admin: 08/04/17 07:19 Dose: 166.667 mls/hr Ibuprofen (Motrin Tab*) 400 mg PO Q8H PRN PRN Reason: PAIN Lactulose (Lactulose*) 15 ml PO DAILY [facility] Last Admin: 08/04/17 07:25 Dose: 15 ml Lorazepam (Ativan Tab(*)) 1 mg PO BID@0700,1400 [facility] Last Admin: 08/04/17 07:24 Dose: 1 mg Lorazepam (Ativan Tab(*)) 2 mg PO BEDTIME [facility] Last Admin: 08/03/17 21:15 Dose: 2 mg Magnesium Hydroxide (Milk Of Magnesia Liq*) 30 ml PO DAILY PRN PRN Reason: CONGESTION Omeprazole (Prilosec Cap*) 20 mg PO DAILY@0730 [facility] Last Admin: 08/04/17 07:24 Dose: 20 mg Oxybutynin Chloride (Ditropan Xl Tab*) 10 mg PO DAILY [facility] Last Admin: 08/04/17 07:24 Dose: 10 mg Paroxetine HCl (Paxil Tab*) 10 mg PO DAILY KEISHA Last Admin: 08/04/17 07:24 Dose: 10 mg Pharmacy Consult (Vancomycin Per Pharmacy*) 1 note FOLLOW UP . PRN PRN Reason: PER PROTOCOL Pharmacy Profile Note (Vancomycin Trough Check) 1 note FOLLOW UP ONCE ONE Stop: 08/05/17 07:31 Sodium Biphosphate/Sodium Phosphate (Fleet Enema*) 1 bottle [place] DAILY PRN PRN Reason: CONSTIPATION Vital Signs - 8 hr 08/04/17 08/04/17 08/04/17 07:24 08:00 08:16 Temperature 97.7 F Pulse Rate 82 Respiratory 20 16 16 Rate Blood Pressure 117/69 (mmHg) O2 Sat by Pulse 94 Oximetry 08/04/17 08/04/17 09:43 11:14 Temperature 98.4 F Pulse Rate 81 Respiratory 16 18 Rate Blood Pressure 132/66 (mmHg) O2 Sat by Pulse 94 Oximetry Oxygen Devices in Use Now: None Appearance: Patient is a 62yo male who appears stated age and is sitting mildly agitated in the bed. Eyes: No Scleral Icterus, PERRLA Ears/Nose/Mouth/Throat: NL Teeth, Lips, Gums, Clear Oropharnyx, Mucous Membranes Moist Neck: NL Appearance and Movements; NL JVP, Trachea Midline Respiratory: Symmetrical Chest Expansion and Respiratory Effort, Clear to Auscultation Cardiovascular: NL Sounds; No Murmurs; No JVD, RRR, No Edema Abdominal: NL Sounds; No Tenderness; No Distention, No Hepatosplenomegaly Lymphatic: No Cervical Adenopathy Extremities: No Edema, No Clubbing, Cyanosis, - - Patient has erythema on the thumb, first finger, and lateral dorsal aspect of the of the right hand. Patient has exposed bone from his thumb protruding from the skin. Skin: No Nodules or Sclerosis Neurological: - - Non-Verbal. CN II-XII intact with limited exam. Result Diagrams: 08/03/17 07:04 08/03/17 07:04 Additional Lab and Data: Lab Results Microbiology and Other Data: Microbiology 08/01/17 18:20 Skin and Soft Tissue MRSA/MSSA (PCR - Final Hand Right Mrsa Negative S.aureus Negative Gram Stain - Final Wound Culture - Preliminary Pseudomonas Aeruginosa Corynebacterium Striatum 08/01/17 19:26 Nasal Screen MRSA (PCR)(ALYSE) - Final Nasal Mrsa Negative Assess/Plan/Problems-Billing Assessment: Patient is a 62yo male with a PMH significant for PSP, HTN, Psoriasis, and anxiety who presents with 1 month of redness and swelling of his right hand which has been getting progressively worse despite 20 days total of clindamycin treatment who is admitted for IV antibiotics and assessment for osteomyelitis. - Patient Problems (1) Cellulitis of hand, right Current Visit: Yes Status: Acute Code(s): L03.113 - CELLULITIS OF RIGHT UPPER LIMB SNOMED Code(s): 67665569 Comment: Appreciate ID consult. Continue Cefepime and Vancomycin. No signs of systemic toxicity. No improvement in erythema. Will defer changing antibiotics for bone biopsy with C/S. (2) Osteomyelitis Current Visit: Yes Status: Acute Code(s): M86.9 - OSTEOMYELITIS, UNSPECIFIED SNOMED Code(s): 24697089 Comment: Appreciate orthopedic consult. Probable osteomyelitis of both phalanges of the right thumb and possible metacarpal involvement as well. Distal phalanx is protruding from the skin. Will need thumb amputation from a hand specialist. Will base application performance engineer antibiotic therapy on the C/S from that bone biposy if available. (3) PSP (progressive supranuclear palsy) Current Visit: Yes Status: Acute Code(s): G23.1 - PROGRESSIVE SUPRANUCLEAR OPHTHALMOPLEGIA SNOMED Code(s): 97708020 Comment: Continue Sinemet. Patient is non-verbal due to dementia. (4) Anxiety Current Visit: Yes Status: Acute Code(s): F41.9 - ANXIETY DISORDER, UNSPECIFIED SNOMED Code(s): 39650598 Comment: Continue ativan. Not well controlled. (5) Insomnia Current Visit: Yes Status: Acute Code(s): G47.00 - INSOMNIA, UNSPECIFIED SNOMED Code(s): 447996169 Comment: Continue ativan PRN at bedtime since ambien ER not available. (6) HTN (hypertension) Current Visit: Yes Status: Acute Code(s): I10 - ESSENTIAL (PRIMARY) HYPERTENSION SNOMED Code(s): 51865598 Comment: Intermittently hypertensive probably due to pain and anxiety, on no medications at home. Will monitor. (7) DVT prophylaxis Current Visit: Yes Status: Acute Code(s): YPU4696 - SNOMED Code(s): 853504282 Comment: Heparin SubQ (8) DNR (do not resuscitate) Current Visit: Yes Status: Acute Status and Disposition: Patient is admitted inpatient. Will discharge when medically stable. Will need nursing home antibiotics for osteomyelitis.
[2017-08-04] MEDS: Acetaminophen TAB* 325 MG PO PRN (13:49)
--- NOTE | 2017-08-04 18:24 | RAD ---
Indication: Osteomyelitis of the right hand Image sequences: Axial T2 fat sat, sagittal T1, axial T1, sagittal T2 fat sat, coronal T2 fat sat, coronal T1 and sagittal T1-weighted images were obtained. The distal radius and ulna demonstrates no evidence of bone marrow replacement. The carpal bones demonstrate no evidence of bone marrow replacement. No evidence of bone marrow edema is noted. Diffuse soft tissue edema is noted. IMPRESSION: THE RIGHT HAND AND WRIST DEMONSTRATES NO EVIDENCE OF BONE MARROW REPLACEMENT TO SUGGEST OSTEOMYELITIS.
[2017-08-04] MEDS: Ibuprofen TAB* 400 MG PO PRN (21:54)
[2017-08-05] MEDS: Carbidopa/Levodop 25/100 MG TAB(*) PO SCH ×3 (05:51→17:45)
[2017-08-05] MEDS: Omeprazole CAP* 20 MG PO SCH (05:52)
[2017-08-05] MEDS: LORazepam TAB(*) 1 MG PO SCH ×3 (05:52→21:55)
[2017-08-05] MEDS: Heparin VIAL(*) 5000 UNITS/ML VIAL (FIVE THOUSAND) SUBCUT SCH ×3 (05:53→22:01)
[2017-08-05] MEDS: Ibuprofen TAB* 400 MG PO PRN (05:56)
[2017-08-05] MEDS ORDERED: Vancomycin Trough Check NOTE FOLLOW UP ONE (07:30)
[2017-08-05 07:51] LABS: ABS Basophils 0.1 10^3/ul (0-0.2); ABS Eosinophils 0.1 10^3/ul (0-0.6); ABS Lymphocytes 1.2 10^3/ul (1.0-4.8); ABS Monocytes 0.8 10^3/ul (0-0.8); ABS Neutrophils 3.3 10^3/ul (1.5-7.7); ABS Nucleated RBC 0 10^3/ul; Eosinophil % 2.6 % (0-6); Hematocrit 41 % (42-52); Hemoglobin 14.4 g/dl (14.0-18.0); Lymphocyte % 21.3 % (25-47); Mean Corpuscular HGB Conc 35 g/dl (31-36); Mean Corpuscular Hemoglobin 33 pg (27-31); Mean Corpuscular Volume 93 fL (80-94); Mean Platelet Volume 8 um3 (7.4-10.4); Nucleated Red Blood Cells % 0.1; Platelet Count 207 10^3/ul (150-450); Red Blood Count 4.38 10^6/ul (4.0-5.4); Red Cell Distribution Width 13 % (10.5-15); White Blood Count 5.4 10^3/ul (3.5-10.8)
[2017-08-05 08:09] LABS: EGFR Non-African American 114.3 (>60)
[2017-08-05 08:50] LABS: Vancomycin Trough 12.6 mcg/mL
[2017-08-05] MEDS: Oxybutynin XL TAB* 5 MG PO SCH (09:06)
[2017-08-05] MEDS: PARoxetine HCL TAB* 10 MG PO SCH (09:06)
[2017-08-05] MEDS: Vancomycin(*) 1,250 MG in NS 0.9% 250 ML* 250 ML IVPB SCH (09:06)
[2017-08-05] MEDS: Lactulose* 15 ML UDC PO SCH (09:06)
--- NOTE | 2017-08-05 10:43 | PN ---
Progress Note - Progress Note Date of Service: 08/05/17 SOAP: Subjective: CC: R hand infection HPI: 62 yo man with PSP and R medial hand erythema and thumb ulcer, no fever, rash, or diarrhea and eating ok when fed per RN. Objective: Vital Signs Temp 36.7 C 08/05/17 02:49 Pulse 89 08/05/17 02:49 Resp 16 08/05/17 08:22 BP 149/94 08/05/17 02:49 Pulse Ox 100 08/05/17 02:49 Intake & Output 08/04/17 08/05/17 08/05/17 18:59 06:59 18:59 Intake Total 2009 710 Balance 2009 710 Intake: IV Fluids 345 ABX - VANCOMYCIN 280 NS (0.9%) 65 IVPB 320 365 ABX - CEFEPIME 50 65 ABX - VANCOMYCIN 270 300 Oral 1690 0 Other: Estimated Void Large Large # Bowel Movements 0 # Voids 0 1 Gen:awake, no distress Neuro: regards, does not answer questions HEENT:PERRL, MMM Heart:RRR no murmur Lungs:CTA BL Abd:+BS NTND soft Skin: no rash Laboratory Results - last 24 hr 08/05/17 08/05/17 07:35 07:35 WBC 5.4 RBC 4.38 Hgb 14.4 Hct 41 L MCV 93 MCH 33 H MCHC 35 RDW 13 Plt Count 207 MPV 8 Neut % (Auto) 60.5 Lymph % (Auto) 21.3 L [place] % (Auto) 14.7 H Eos % (Auto) 2.6 Baso % (Auto) 0.9 Absolute Neuts (auto) 3.3 Absolute Lymphs (auto) 1.2 Absolute Monos (auto) 0.8 Absolute Eos (auto) 0.1 Absolute Basos (auto) 0.1 Absolute Nucleated RBC 0 Nucleated RBC % 0.1 Sodium 133 Potassium 4.1 Chloride 99 L Carbon Dioxide 28 Anion Gap 6 BUN 16 Creatinine 0.70 Est GFR ( Amer) 147.0 Est GFR (Non-Af Amer) 114.3 BUN/Creatinine Ratio 22.9 H Glucose 92 Calcium 9.8 Magnesium 2.1 C-Reactive Protein 41.01 H Vancomycin Trough 12.6 Assessment: 1. 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 psoriasis Plan: 1. continue cefepime, DC vancomycin, hand surgery evaluation pending. Will check with ortho and hospitalist team regarding goals of care.
[2017-08-05] MEDS: Cefepime 2 GM in Dextrose(*) 2 GM/50 ML BAG IV SCH ×2 (11:39→21:47)
[2017-08-05] MEDS: Acetaminophen TAB* 325 MG PO PRN (11:50)
[2017-08-05] MEDS ORDERED: Buffered Lidocaine 0.9% SYRIN* 5 ML/SYR SYRINGE INTRADERM ONE (13:06)
--- NOTE | 2017-08-05 20:47 | CONS ---
CONSULTATION REPORT: DATE OF CONSULT: 08/05/17 CHIEF COMPLAINT: Contracture and infection of the right hand. HISTORY OF PRESENT ILLNESS: Sridhar is a 62-year-old man with severe Parkinson' s dementia which is very progressive and rapidly progressive in the last several months. He has been living at the [facility] and has a progressive severe contracture of his right upper extremity for the past 6 months according to his family. Last week, he developed some redness and was referred to the wound clinic who then referred him to the emergency room. He is admitted to the hospital under the care of the hospitalist for an infection in his right hand. MRI and CT scan were done for concern of an osteomyelitis. He also has an open wound on the radial aspect of his index finger. He is now on cefepime and vancomycin and in the last 24 hours, the erythema in his hand has markedly improved. It is now localized mostly to the right thumb and right ring finger. I discussed with Dr. Bay, the patient's status. He is concerned that Sridhar's overall general health is in such a poor condition that he may not heal from any surgical wounds and because of the rapidly progressive nature of this disease, he thought perhaps palliative care might be the best option with chronic antibiotics treatment to keep infection in his right hand at bay. I had a lengthy discussion with the patient's family concerning Dr. Bay's concerns. PHYSICAL EXAM: On examination, Sridhar is a 62-year-old man, noncommunicative, in mild distress at rest in that he has a marked contracture of his right shoulder, elbow, wrist and fingers. There is erythema of the distal aspect of the ring finger and of the thumb. He has an obvious full thickness wound on the radial aspect of his palm of his hand because of the contracture. DIAGNOSTIC STUDIES/LAB DATA: I reviewed his studies, they are read as showing no osteomyelitis of the thumb, but he has obvious significant soft tissue changes. IMPRESSION: Cellulitis, probable osteomyelitis of the right hand and probable skin breakdown. PLAN: I discussed with the patient's family the concern for his difficulty healing wounds and that perhaps believed with surgery, we may just create a larger open wound which might not heal and also the possibility that we might be able to control the acute nature of the infection with empiric antibiotics there and to forego surgery for now, which I think is a reasonable decision. I am happy to see Sridhar again in followup if the situation worsens over time. [id number]/[facility] #: [id number] MTDRome
--- NOTE | 2017-08-05 23:34 | PN ---
Subjective Date of Service: 08/05/17 Interval History: Patient saw seen and evaluated. Still non-verbal and in no distress. Discussed treatment with after being seen by Dr. Moctezuma and she is very encouraged that they could avoid surgery and is hopeful he could go back to [place] soon. Family History: Unchanged from Admission Social History: Unchanged from Admission Past Medical History: Findings - Patient has PSP. Objective Active Medications: Acetaminophen (Tylenol Tab*) 650 mg PO Q4H PRN PRN Reason: FEVER/PAIN Last Admin: 08/05/17 11:50 Dose: 650 mg Carbidopa/Levodopa (Sinemet 25/100 Tab(*)) 3 tab PO 0700,1130,1800 [facility] Last Admin: 08/05/17 17:45 Dose: 3 tab Glycerin (Glycerin Adult Supp*) 1 supp NC DAILY PRN PRN Reason: CONSTIPATION Heparin Sodium (Porcine) (Heparin Vial(*)) 5,000 units SUBCUT Q8HR [facility] Last Admin: 08/05/17 22:01 Dose: 5,000 units Cefepime HCl (Maxipime 2 Gm In Dextrose Duplex (*)) 2 gm in 50 mls @ 100 mls/ hr IV Q12H [facility] Last Admin: 08/05/17 21:47 Dose: 100 mls/hr Ibuprofen (Motrin Tab*) 400 mg PO Q8H PRN PRN Reason: PAIN Last Admin: 08/05/17 05:56 Dose: 400 mg Lactulose (Lactulose*) 15 ml PO DAILY [facility] Last Admin: 08/05/17 09:06 Dose: 15 ml Lorazepam (Ativan Tab(*)) 1 mg PO BID@0700,1400 [facility] Last Admin: 08/05/17 13:43 Dose: 1 mg Lorazepam (Ativan Tab(*)) 2 mg PO BEDTIME [facility] Last Admin: 08/05/17 21:55 Dose: 2 mg Magnesium Hydroxide (Milk Of Magnesia Liq*) 30 ml PO DAILY PRN PRN Reason: CONGESTION Omeprazole (Prilosec Cap*) 20 mg PO DAILY@0730 [facility] Last Admin: 08/05/17 05:52 Dose: 20 mg Oxybutynin Chloride (Ditropan Xl Tab*) 10 mg PO DAILY [facility] Last Admin: 08/05/17 09:06 Dose: Not Given Paroxetine HCl (Paxil Tab*) 10 mg PO DAILY [facility] Last Admin: 08/05/17 09:06 Dose: 10 mg Sodium Biphosphate/Sodium Phosphate (Fleet Enema*) 1 bottle NC DAILY PRN PRN Reason: CONSTIPATION Vital Signs - 8 hr 08/05/17 08/05/17 08/05/17 17:21 19:12 21:55 Temperature 98.3 F Pulse Rate 107 Respiratory 16 20 20 Rate Blood Pressure 165/83 (mmHg) O2 Sat by Pulse 97 Oximetry Oxygen Devices in Use Now: None Appearance: Patient is a 62yo male who appears stated age and is sitting in the bed in [facility]. Eyes: No Scleral Icterus, PERRLA Ears/Nose/Mouth/Throat: NL Teeth, Lips, Gums, Clear Oropharnyx, Mucous Membranes Moist Neck: NL Appearance and Movements; NL JVP, Trachea Midline Respiratory: Symmetrical Chest Expansion and Respiratory Effort, Clear to Auscultation Cardiovascular: NL Sounds; No Murmurs; No JVD, RRR, No Edema Abdominal: NL Sounds; No Tenderness; No Distention, No Hepatosplenomegaly Lymphatic: No Cervical Adenopathy Extremities: No Edema, No Clubbing, Cyanosis, - - Ulcer between the first finger and thumb of the right hand with exposed bone and signficant slough. Skin: No Nodules or Sclerosis, - - Large atrophic scar on left anterior thigh. Neurological: - - CN II-XII intact with limited exam. Result Diagrams: 08/05/17 07:35 08/05/17 07:35 Additional Lab and Data: Lab Results Microbiology and Other Data: Microbiology 08/01/17 18:20 Skin and Soft Tissue MRSA/MSSA (PCR - Final Hand Right Mrsa Negative S.aureus Negative Gram Stain - Final Wound Culture - Preliminary Pseudomonas Aeruginosa Corynebacterium Striatum 08/01/17 19:26 Nasal Screen MRSA (PCR)(ALYSE) - Final Nasal Mrsa Negative Assess/Plan/Problems-Billing Assessment: Patient is a 62yo male with a PMH significant for PSP, HTN, Psoriasis, and anxiety who presents with 1 month of redness and swelling of his right hand which has been getting progressively worse despite 20 days total of clindamycin treatment who is admitted for IV antibiotics and assessment for osteomyelitis. - Patient Problems (1) Cellulitis of hand, right Current Visit: Yes Status: Acute Code(s): L03.113 - CELLULITIS OF RIGHT UPPER LIMB SNOMED Code(s): 72713104 Comment: Appreciate ID consult. Continue Cefepime stop vancomycin. No signs of systemic toxicity. Slight improvement in erythema. Plan to continue with empiric antibiotics and defer surgery. (2) Osteomyelitis Current Visit: Yes Status: Acute Code(s): M86.9 - OSTEOMYELITIS, UNSPECIFIED SNOMED Code(s): 99137138 Comment: Appreciate orthopedic consult. Probable osteomyelitis of both phalanges of the right thumb and possible metacarpal involvement as well. Distal phalanx is protruding from the skin. Concern for ability to heal surgical site. Will continue to cefepime at this time. (3) PSP (progressive supranuclear palsy) Current Visit: Yes Status: Acute Code(s): G23.1 - PROGRESSIVE SUPRANUCLEAR OPHTHALMOPLEGIA SNOMED Code(s): 18038243 Comment: Continue Sinemet. Patient is non-verbal due to dementia. (4) Anxiety Current Visit: Yes Status: Acute Code(s): F41.9 - ANXIETY DISORDER, UNSPECIFIED SNOMED Code(s): 07397670 Comment: Continue ativan. Not well controlled, patient significantly agitated at times. (5) Insomnia Current Visit: Yes Status: Acute Code(s): G47.00 - INSOMNIA, UNSPECIFIED SNOMED Code(s): 623562157 Comment: Continue ativan PRN at bedtime since ambien ER not available. (6) HTN (hypertension) Current Visit: Yes Status: Acute Code(s): I10 - ESSENTIAL (PRIMARY) HYPERTENSION SNOMED Code(s): 23268879 Comment: Persistently hypertensive. Will treat with Lisinopril. (7) DVT prophylaxis Current Visit: Yes Status: Acute Code(s): KSR2265 - SNOMED Code(s): 755698599 Comment: Heparin SubQ (8) DNR (do not resuscitate) Current Visit: Yes Status: Acute Status and Disposition: Patient is admitted inpatient. Will discharge when medically stable. Will need technician terminal and repeater antibiotics for osteomyelitis.
[2017-08-06] MEDS: Heparin VIAL(*) 5000 UNITS/ML VIAL (FIVE THOUSAND) SUBCUT SCH ×3 (05:47→21:43)
[2017-08-06] MEDS ORDERED: Famotidine IV* 10 MG/ML 2 ML (20 mg) IV ONE (06:00)
[2017-08-06] MEDS: LORazepam TAB(*) 1 MG PO SCH ×3 (07:55→20:59)
[2017-08-06] MEDS: Omeprazole CAP* 20 MG PO SCH (07:55)
[2017-08-06] MEDS: Oxybutynin XL TAB* 5 MG PO SCH (07:55)
[2017-08-06] MEDS: Lisinopril TAB* 5 MG PO SCH (07:55)
[2017-08-06] MEDS: Carbidopa/Levodop 25/100 MG TAB(*) PO SCH ×3 (07:55→17:43)
[2017-08-06] MEDS: PARoxetine HCL TAB* 10 MG PO SCH (07:55)
[2017-08-06] MEDS: Lactulose* 15 ML UDC PO SCH (07:57)
[2017-08-06] MEDS: Cefepime 2 GM in Dextrose(*) 2 GM/50 ML BAG IV SCH ×2 (11:44→22:21)
--- NOTE | 2017-08-06 11:55 | PN ---
Subjective Date of Service: 08/06/17 Interval History: Patient seen and examined, non-verbal, does not follow commands. Did look directly at me when I talked with him and said his name. Unable to obtain ROS due to condition. Persistently pulling his hand through his hair and across his face, but does not appear to be in distress or in pain. Family History: Unchanged from Admission Social History: Unchanged from Admission Past Medical History: Findings - Patient has PSP. Objective Active Medications: Acetaminophen (Tylenol Tab*) 650 mg PO Q4H PRN PRN Reason: FEVER/PAIN Last Admin: 08/05/17 11:50 Dose: 650 mg Carbidopa/Levodopa (Sinemet 25/100 Tab(*)) 3 tab PO 0700,1130,1800 [facility] Last Admin: 08/06/17 11:48 Dose: 3 tab Glycerin (Glycerin Adult Supp*) 1 supp MS DAILY PRN PRN Reason: CONSTIPATION Heparin Sodium (Porcine) (Heparin Vial(*)) 5,000 units SUBCUT Q8HR [facility] Last Admin: 08/06/17 05:47 Dose: 5,000 units Cefepime HCl (Maxipime 2 Gm In Dextrose Duplex (*)) 2 gm in 50 mls @ 100 mls/ hr IV Q12H [facility] Last Admin: 08/06/17 11:44 Dose: 100 mls/hr Ibuprofen (Motrin Tab*) 400 mg PO Q8H PRN PRN Reason: PAIN Last Admin: 08/05/17 05:56 Dose: 400 mg Lactulose (Lactulose*) 15 ml PO DAILY [facility] Last Admin: 08/06/17 07:57 Dose: 15 ml Lisinopril (Prinivil Tab*) 5 mg PO DAILY [facility] Last Admin: 08/06/17 07:55 Dose: 5 mg Lorazepam (Ativan Tab(*)) 1 mg PO BID@0700,1400 [facility] Last Admin: 08/06/17 07:55 Dose: 1 mg Lorazepam (Ativan Tab(*)) 2 mg PO BEDTIME [facility] Last Admin: 08/05/17 21:55 Dose: 2 mg Magnesium Hydroxide (Milk Of Magnesia Liq*) 30 ml PO DAILY PRN PRN Reason: CONGESTION Omeprazole (Prilosec Cap*) 20 mg PO DAILY@0730 [facility] Last Admin: 08/06/17 07:55 Dose: 20 mg Oxybutynin Chloride (Ditropan Xl Tab*) 10 mg PO DAILY [facility] Last Admin: 08/06/17 07:55 Dose: 10 mg Paroxetine HCl (Paxil Tab*) 10 mg PO DAILY [facility] Last Admin: 08/06/17 07:55 Dose: 10 mg Sodium Biphosphate/Sodium Phosphate (Fleet Enema*) 1 bottle MS DAILY PRN PRN Reason: CONSTIPATION Vital Signs - 8 hr 08/06/17 08/06/17 07:55 11:50 Respiratory 24 18 Rate Oxygen Devices in Use Now: None Appearance: Awake, NAD Eyes: No Scleral Icterus Ears/Nose/Mouth/Throat: - - dry oral mucosa Neck: Trachea Midline Respiratory: Symmetrical Chest Expansion and Respiratory Effort, Clear to Auscultation Cardiovascular: NL Sounds; No Murmurs; No JVD, RRR, No Edema Abdominal: NL Sounds; No Tenderness; No Distention Extremities: No Edema Skin: - - dry skin in general, thumb and hand wound with erythema and some purulent drainage noted Neurological: - - Non-verbal at baseline Nutrition: Taking PO's, - - with assistance Result Diagrams: 08/05/17 07:35 08/05/17 07:35 Additional Lab and Data: Lab Results Microbiology and Other Data: Microbiology 08/01/17 18:20 Skin and Soft Tissue MRSA/MSSA (PCR - Final Hand Right Mrsa Negative S.aureus Negative Gram Stain - Final Wound Culture - Preliminary Pseudomonas Aeruginosa Corynebacterium Striatum 08/01/17 19:26 Nasal Screen MRSA (PCR)(ALYSE) - Final Nasal Mrsa Negative Diagnostic Imaging: Patient Name: RODRI PIERSON Medical Record#: [id number] Ordering Physician: George OLGUIN Acct.#: [id number] : 1955 Age: 62 Sex: M Location: [address] [place] [address] - MEDICAL Exam Date: 08/02/17 154 ADM Status: ADM IN Order Information: MRI UPPER EXTREMITY RIGHT WO Accession Number: [id number] CPT: 48243 Indication: Osteomyelitis of the right hand Image sequences: Axial T2 fat sat, sagittal T1, axial T1, sagittal T2 fat sat, coronal T2 fat sat, coronal T1 and sagittal T1-weighted images were obtained. The distal radius and ulna demonstrates no evidence of bone marrow replacement. The carpal bones demonstrate no evidence of bone marrow replacement. No evidence of bone marrow edema is noted. Diffuse soft tissue edema is noted. IMPRESSION: THE RIGHT HAND AND WRIST DEMONSTRATES NO EVIDENCE OF BONE MARROW REPLACEMENT TO SUGGEST OSTEOMYELITIS. <Electronically signed by Lacey Gonzalez MD in OV> 08/04/171820 Dictated By: Lacey Gonzalez MD Dictated Date/Time: 08/04/171820 Transcribed Date/Time: 08/04/171818 Copy to: CC:Anders Emery DMD; Atul Tan MD; Aftab Bay MD; Anna Mcgowan DO ; Carol Ventura MD; Sofi Lara MD; George OLGUIN Imaging [facility] - [facility] [address] [place] [address] ph [phone] ph [phone] ph ([phone]) 1 of 1 Assess/Plan/Problems-Billing Assessment: This is a 62 year ol male, resident of [facility], with hx of PSP, HTN and Psoriasis that presented to ER with cellulitis and osteo of contracted right hand and thumb, failed outpatient treatment with clindamycin. - Patient Problems (1) Anxiety Code(s): F41.9 - ANXIETY DISORDER, UNSPECIFIED SNOMED Code(s): 47081664 Comment: - Significant agitation at times, Ativan PRN (2) Cellulitis of hand, right Code(s): L03.113 - CELLULITIS OF RIGHT UPPER LIMB SNOMED Code(s): 97998360 Comment: - ID following - Ortho and hand surgery consults appreciated, no indication for surgery at this time - Continue cefepime, DC vanco (3) DNR (do not resuscitate) (4) DVT prophylaxis Code(s): WUS3412 - SNOMED Code(s): 058322598 Comment: Heparin SubQ (5) HTN (hypertension) Code(s): I10 - ESSENTIAL (PRIMARY) HYPERTENSION SNOMED Code(s): 93814311 Comment: - Improved on lisinopril (6) Insomnia Code(s): G47.00 - INSOMNIA, UNSPECIFIED SNOMED Code(s): 344700995 Comment: - Continue ativan PRN at bedtime since ambien ER not available. (7) Osteomyelitis Code(s): M86.9 - OSTEOMYELITIS, UNSPECIFIED SNOMED Code(s): 17303241 Comment: - Continue atbx as per ID, no surgery indicated at this time (8) PSP (progressive supranuclear palsy) Code(s): G23.1 - PROGRESSIVE SUPRANUCLEAR OPHTHALMOPLEGIA SNOMED Code(s): 44987765 Comment: - Continue Sinemet - At baseline, non-verbal 2/2 dementia. Status and Disposition: Remain inpatient, will need exterminator helper antibiotics for osteomyelitis. Counseling and/or Coordination of Care Minutes: coordinated with staff
--- NOTE | 2017-08-06 15:53 | PN ---
Progress Note - Progress Note Date of Service: 08/06/17 SOAP: Subjective: CC: R hand infection HPI: 62 yo man with PSP and R medial hand erythema and thumb ulcer. No diarrhea per RN. He is non verbal, cannot participate. Objective: Vital Signs Temp 37.6 C 08/06/17 15:15 Pulse 94 08/06/17 15:15 Resp 20 08/06/17 15:15 BP 132/67 08/06/17 15:15 Pulse Ox 85 08/06/17 15:15 Intake & Output 08/05/17 08/06/17 08/06/17 18:59 06:59 18:59 Intake Total 1440 0 2160 Balance 1440 0 2160 Intake: IVPB 0 NS (0.9%) 0 Oral 1440 0 2160 Other: Estimated Void Large Large Large # Bowel Movements 0 Estimated Stool Amount Large # Voids 1 2 Gen:awake, no distress Neuro: regards, does not answer questions HEENT:PERRL, MMM Heart:RRR no murmur Lungs:CTA BL Abd:+BS NTND soft Skin: no rash MSK: R hand diffuse edema; thumb and 1st finger erythema Microbiology 08/01/17 15:14 Aerobic Blood Culture - Final Blood Venous No Growth Day 5 Anaerobic Blood Culture - Final No Growth Day 5 08/01/17 15:06 Aerobic Blood Culture - Final Blood Venous No Growth Day 5 Anaerobic Blood Culture - Final No Growth Day 5 Assessment: 1. 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 psoriasis 4. anxiety Plan: 1. continue cefepime Q12hrs, recheck CRP 08/07 (ordered); given progressive dementia and severe likely incurable infection, palliative care may be appropriate. Discussed Lavinia Umaña NP
[2017-08-07] MEDS: Heparin VIAL(*) 5000 UNITS/ML VIAL (FIVE THOUSAND) SUBCUT SCH ×3 (05:29→21:09)
[2017-08-07] MEDS: Carbidopa/Levodop 25/100 MG TAB(*) PO SCH ×3 (06:20→18:00)
[2017-08-07] MEDS: LORazepam TAB(*) 1 MG PO SCH ×2 (06:21→14:07)
[2017-08-07] MEDS: Lactulose* 15 ML UDC PO SCH (10:03)
[2017-08-07] MEDS: Cefepime 2 GM in Dextrose(*) 2 GM/50 ML BAG IV SCH (10:03)
[2017-08-07] MEDS: PARoxetine HCL TAB* 10 MG PO SCH (10:03)
[2017-08-07] MEDS: Oxybutynin XL TAB* 5 MG PO SCH (10:03)
[2017-08-07] MEDS: Lisinopril TAB* 5 MG PO SCH (10:03)
[2017-08-07] MEDS: Omeprazole CAP* 20 MG PO SCH (10:03)
[2017-08-07] MEDS: Ibuprofen TAB* 400 MG PO PRN (17:48)
--- NOTE | 2017-08-07 18:28 | PN ---
Subjective Date of Service: 08/07/17 Interval History: Patient seen and examined. and daughter at bedside. Wound to right thumb and hand appears significantly worse. Per RN, patient appears very stressed and diaphoretic throughout the day and the RUE contracture has been very tight, too tight to place an ABD dressing between the thumb and forefinger. Chart, and VS reviewed in detail. Family History: Unchanged from Admission Social History: Unchanged from Admission Past Medical History: Findings - Patient has PSP. Objective Active Medications: Acetaminophen (Tylenol Tab*) 650 mg PO Q4H PRN PRN Reason: FEVER/PAIN Last Admin: 08/05/17 11:50 Dose: 650 mg Carbidopa/Levodopa (Sinemet 25/100 Tab(*)) 3 tab PO 0700,1130,1800 [facility] Last Admin: 08/07/17 18:00 Dose: 3 tab Glycerin (Glycerin Adult Supp*) 1 supp [place] DAILY PRN PRN Reason: CONSTIPATION Heparin Sodium (Porcine) (Heparin Vial(*)) 5,000 units SUBCUT Q8HR [facility] Last Admin: 08/07/17 14:07 Dose: 5,000 units Cefepime HCl 2 gm/ Dextrose 50 mls @ 100 mls/hr IM Q12H [facility] Ibuprofen (Motrin Tab*) 400 mg PO Q8H PRN PRN Reason: PAIN Last Admin: 08/07/17 17:48 Dose: 400 mg Lactulose (Lactulose*) 15 ml PO DAILY [facility] Last Admin: 08/07/17 10:03 Dose: 15 ml Lisinopril (Prinivil Tab*) 5 mg PO DAILY [facility] Last Admin: 08/07/17 10:03 Dose: 5 mg Lorazepam (Ativan Tab(*)) 1 mg PO BID@0700,1400 [facility] Last Admin: 08/07/17 14:07 Dose: 1 mg Lorazepam (Ativan Tab(*)) 2 mg PO BEDTIME [facility] Last Admin: 08/06/17 20:59 Dose: 2 mg Magnesium Hydroxide (Milk Of Magnesia Liq*) 30 ml PO DAILY PRN PRN Reason: CONGESTION Omeprazole (Prilosec Cap*) 20 mg PO DAILY@0730 [facility] Last Admin: 08/07/17 10:03 Dose: 20 mg Oxybutynin Chloride (Ditropan Xl Tab*) 10 mg PO DAILY [facility] Last Admin: 08/07/17 10:03 Dose: 10 mg Paroxetine HCl (Paxil Tab*) 10 mg PO DAILY [facility] Last Admin: 08/07/17 10:03 Dose: 10 mg Sodium Biphosphate/Sodium Phosphate (Fleet Enema*) 1 bottle [place] DAILY PRN PRN Reason: CONSTIPATION Vital Signs - 8 hr 08/07/17 08/07/17 08/07/17 11:35 14:07 15:47 Temperature 99.0 F 99.3 F Pulse Rate 125 95 Respiratory 19 16 24 Rate Blood Pressure 141/104 106/62 (mmHg) O2 Sat by Pulse 92 Oximetry 08/07/17 18:00 Temperature Pulse Rate Respiratory 19 Rate Blood Pressure (mmHg) O2 Sat by Pulse Oximetry Oxygen Devices in Use Now: None Appearance: Distressed, non-verbal at baseline Ears/Nose/Mouth/Throat: Clear Oropharnyx Neck: Trachea Midline Respiratory: Symmetrical Chest Expansion and Respiratory Effort, Clear to Auscultation Cardiovascular: NL Sounds; No Murmurs; No JVD Abdominal: NL Sounds; No Tenderness; No Distention - Upper extremity contractures at baseline Skin: - - severe cellulitis and denuded wound to right hand, thumb and index finger Neurological: - - non-verbal at baseline Nutrition: Taking PO's Result Diagrams: 08/05/17 07:35 08/05/17 07:35 Additional Lab and Data: Lab Results Microbiology and Other Data: Microbiology 08/01/17 18:20 Skin and Soft Tissue MRSA/MSSA (PCR - Final Hand Right Mrsa Negative S.aureus Negative Gram Stain - Final Wound Culture - Preliminary Pseudomonas Aeruginosa Corynebacterium Striatum 08/01/17 19:26 Nasal Screen MRSA (PCR)(ALYSE) - Final Nasal Mrsa Negative Diagnostic Imaging: Patient Name: RODRI PIERSON Medical Record#: [id number] Ordering Physician: George OLGUIN Acct.#: [id number] : 1955 Age: 62 Sex: M Location: [address] [place] [address] - MEDICAL Exam Date: 08/02/171542 ADM Status: ADM IN Order Information: MRI UPPER EXTREMITY RIGHT WO Accession Number: [id number] CPT: 22146 Indication: Osteomyelitis of the right hand Image sequences: Axial T2 fat sat, sagittal T1, axial T1, sagittal T2 fat sat, coronal T2 fat sat, coronal T1 and sagittal T1-weighted images were obtained. The distal radius and ulna demonstrates no evidence of bone marrow replacement. The carpal bones demonstrate no evidence of bone marrow replacement. No evidence of bone marrow edema is noted. Diffuse soft tissue edema is noted. IMPRESSION: THE RIGHT HAND AND WRIST DEMONSTRATES NO EVIDENCE OF BONE MARROW REPLACEMENT TO SUGGEST OSTEOMYELITIS. <Electronically signed by Lacey Gonzalez MD in [place]> 08/04/171820 Dictated By: Lacey Gonzalez MD Dictated Date/Time: 08/04/171820 Transcribed Date/Time: 08/04/171818 Copy to: CC:Anders Emery DMD; Atul Tan MD; Aftab Bay MD; Anna Mcgowan DO ; Carol Ventura MD; Sofi Lara MD; George OLGUIN Imaging - [facility] Imaging - [facility] Imaging - [facility] [address] [place] [address] ph ([phone]) ph ([phone]) ph [phone]) 1 of 1 Assess/Plan/Problems-Billing Assessment: This is a 62 year ol male, resident of [facility], with hx of PSP, HTN and Psoriasis that presented to ER with cellulitis and osteo of contracted right hand and thumb, failed outpatient treatment with clindamycin. - Patient Problems (1) Anxiety Code(s): F41.9 - ANXIETY DISORDER, UNSPECIFIED SNOMED Code(s): 64663803 Comment: - Significant agitation at times 2/2 PSP dementia, Ativan BID and PRN - Will Trial longer acting benzo for comfort (2) Cellulitis of hand, right Code(s): L03.113 - CELLULITIS OF RIGHT UPPER LIMB SNOMED Code(s): 05170390 Comment: - With osteomyelitis - ID following - Ortho and hand surgery consults appreciated, no indication for surgery at this time - Continue cefepime - Concern tht wound is advancing, need to discuss with surgery and ID tomorrow - Recheck labs in AM (3) DNR (do not resuscitate) (4) DVT prophylaxis Code(s): XLJ0915 - SNOMED Code(s): 920291731 Comment: Heparin SubQ (5) HTN (hypertension) Code(s): I10 - ESSENTIAL (PRIMARY) HYPERTENSION SNOMED Code(s): 06505322 Comment: - Improved on lisinopril (6) Insomnia Code(s): G47.00 - INSOMNIA, UNSPECIFIED SNOMED Code(s): 448703083 Comment: - Trial clonazepam (7) Osteomyelitis Code(s): M86.9 - OSTEOMYELITIS, UNSPECIFIED SNOMED Code(s): 16198612 Comment: - Continue atbx as per ID, however, wound appears to be progressing - Per ID and surgery notes, may need palliative, but is ammendable to surgery/amputation if needed - Will discuss with ID and surgery tomorrow (8) PSP (progressive supranuclear palsy) Code(s): G23.1 - PROGRESSIVE SUPRANUCLEAR OPHTHALMOPLEGIA SNOMED Code(s): 25372555 Comment: - Continue Sinemet - At baseline, non-verbal 2/2 dementia - Add clonazepam BID - Consult neuro tomorrow, Dr. Flores to discuss if botox injections for severe dystonia of RUE can loosen contracture enough to allow for wound care, since patient is creating pressure on his own wounds and making condition significantly worse Status and Disposition: Remain inpatient, prognosis: Guarded. Counseling and/or Coordination of Care Minutes: coordinated with patient's family and staff
[2017-08-07] MEDS ORDERED: LORazepam TAB(*) 1 MG PO PRN (18:42)
[2017-08-07] MEDS: clonazePAM TAB(*) 0.5 MG PO SCH (21:08)
[2017-08-07] MEDS: CEFEPIME IM SCH ×2 (22:09)
[2017-08-07] MEDS: D5W IM SCH ×2 (22:09)
[2017-08-08] MEDS: Ibuprofen TAB* 400 MG PO PRN ×2 (06:15→18:31)
[2017-08-08] MEDS: Heparin VIAL(*) 5000 UNITS/ML VIAL (FIVE THOUSAND) SUBCUT SCH ×3 (06:15→22:30)
[2017-08-08] MEDS: Carbidopa/Levodop 25/100 MG TAB(*) PO SCH ×3 (06:15→18:31)
[2017-08-08 07:07] LABS: ABS Basophils 0.1 10^3/ul (0-0.2); ABS Eosinophils 0.1 10^3/ul (0-0.6); ABS Lymphocytes 1.4 10^3/ul (1.0-4.8); ABS Monocytes 1.1 10^3/ul (0-0.8); ABS Neutrophils 4.7 10^3/ul (1.5-7.7); ABS Nucleated RBC 0 10^3/ul; Hematocrit 44 % (42-52); Hemoglobin 15.1 g/dl (14.0-18.0); Lymphocyte % 18.7 % (25-47); Mean Corpuscular HGB Conc 34 g/dl (31-36); Mean Corpuscular Hemoglobin 33 pg (27-31); Mean Corpuscular Volume 95 fL (80-94); Mean Platelet Volume 8 um3 (7.4-10.4); Nucleated Red Blood Cells % 0; Platelet Count 228 10^3/ul (150-450); Red Blood Count 4.63 10^6/ul (4.0-5.4); Red Cell Distribution Width 13 % (10.5-15); White Blood Count 7.4 10^3/ul (3.5-10.8)
[2017-08-08] MEDS: Omeprazole CAP* 20 MG PO SCH (07:57)
[2017-08-08] MEDS: Oxybutynin XL TAB* 5 MG PO SCH (08:00)
[2017-08-08] MEDS: clonazePAM TAB(*) 0.5 MG PO SCH (08:00)
[2017-08-08] MEDS: Lisinopril TAB* 5 MG PO SCH (08:00)
[2017-08-08] MEDS: PARoxetine HCL TAB* 10 MG PO SCH (08:01)
[2017-08-08] MEDS: Lactulose* 15 ML UDC PO SCH (08:10)
[2017-08-08] MEDS: Acetaminophen TAB* 325 MG PO PRN ×2 (11:02→20:41)
[2017-08-08] MEDS: CEFEPIME IM SCH ×4 (11:04→22:26)
[2017-08-08] MEDS: D5W IM SCH ×4 (11:04→22:26)
--- NOTE | 2017-08-08 11:26 | PN ---
Progress Note - Progress Note Date of Service: 08/08/17 SOAP: Subjective: CC: R hand infection HPI: 62 yo man with PSP and R medial hand erythema and thumb ulcer. He is non verbal, cannot participate. Objective: Vital Signs Temp 37.0 C 08/08/17 07:51 Pulse 100 08/08/17 07:51 Resp 24 08/08/17 11:05 BP 131/107 08/08/17 07:51 Pulse Ox 96 08/08/17 07:51 Intake & Output 08/07/17 08/08/17 08/08/17 18:59 06:59 18:59 Intake Total 1680 3915 240 Balance 1680 3915 240 Intake: IV Fluids 100 ABX - CEFEPIME 100 IVPB 55 ABX - CEFEPIME 55 Oral 1580 3860 240 Other: Estimated Void Large Large # Bowel Movements 1 1 1 Estimated Stool Amount Small Small Medium # Voids 2 1 Gen:awake, no distress Neuro: regards, does not answer questions HEENT:PERRL, MMM Heart:RRR no murmur Lungs:CTA BL Abd:+BS NTND soft Skin: no rash MSK: R hand no edema; thumb erythema and edema, 1 cm wound with maceration Laboratory Results - last 24 hr 08/08/17 08/08/17 06:26 06:26 WBC 7.4 RBC 4.63 Hgb 15.1 Hct 44 MCV 95 H MCH 33 H MCHC 34 RDW 13 Plt Count 228 MPV 8 Neut % (Auto) 63.6 Lymph % (Auto) 18.7 L [place] % (Auto) 14.8 H Eos % (Auto) 2.0 Baso % (Auto) 0.9 Absolute Neuts (auto) 4.7 Absolute Lymphs (auto) 1.4 Absolute Monos (auto) 1.1 H Absolute Eos (auto) 0.1 Absolute Basos (auto) 0.1 Absolute Nucleated RBC 0 Nucleated RBC % 0 Sodium 127 L Potassium 4.3 Chloride 96 L Carbon Dioxide 22 Anion Gap 9 BUN 19 Creatinine 0.63 L Est GFR ( Amer) 166.0 Est GFR (Non-Af Amer) 129.0 BUN/Creatinine Ratio 30.2 H Glucose 97 Calcium 10.1 Total Bilirubin 0.70 AST 55 H ALT 70 H Alkaline Phosphatase 81 Total Protein 7.8 Albumin 4.4 Globulin 3.4 Albumin/Globulin Ratio 1.3 Assessment: 1. 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 psoriasis 4. anxiety Plan: 1. continue cefepime Q12hrs day 7. Overall improving and I remain concerned that a surgical incision would be difficult to heal. Will plan on continuing antibiotics and re-assess as outpatient in 2 weeks for need for surgery. Discussed with Lavinia Umaña NP and Dr Moctezuma
--- NOTE | 2017-08-08 11:27 | PN ---
Subjective Date of Service: 08/08/17 Interval History: Patient seen and examined. Cellulitis on the dorsal aspect of the affected hand appears to be improved from last night. Thumb however, still appears to be worsening. Requested RN to take measurments today to assess progression. Patient remains non-verbal and difficult to open hand to assess wound size and depth, but ulnar aspect of the thumb is denuded to the bone and unstageable. There is a significant amount of dark brown exudate filling between the thumb index finger wounds. Patient remains non-verbal but clearly distressed whenever RN tries to clean the site or provide wound care on the afflicted limb. Family History: Unchanged from Admission Social History: Unchanged from Admission Past Medical History: Findings - Patient has PSP. Objective Active Medications: Acetaminophen (Tylenol Tab*) 650 mg PO Q4H PRN PRN Reason: FEVER/PAIN Last Admin: 08/08/17 11:02 Dose: 650 mg Carbidopa/Levodopa (Sinemet 25/100 Tab(*)) 3 tab PO 0700,1130,1800 [facility] Last Admin: 08/08/17 11:04 Dose: 3 tab Clonazepam (Klonopin Tab(*)) 0.5 mg PO BID [facility] Last Admin: 08/08/17 08:00 Dose: 0.5 mg Glycerin (Glycerin Adult Supp*) 1 supp [place] DAILY PRN PRN Reason: CONSTIPATION Heparin Sodium (Porcine) (Heparin Vial(*)) 5,000 units SUBCUT Q8HR [facility] Last Admin: 08/08/17 06:15 Dose: 5,000 units Cefepime HCl 2 gm/ Dextrose 50 mls @ 100 mls/hr IM Q12H [facility] Last Admin: 08/08/17 11:04 Dose: 100 mls/hr Ibuprofen (Motrin Tab*) 400 mg PO Q8H PRN PRN Reason: PAIN Last Admin: 08/08/17 06:15 Dose: 400 mg Lactulose (Lactulose*) 15 ml PO DAILY [facility] Last Admin: 08/08/17 08:10 Dose: 15 ml Lisinopril (Prinivil Tab*) 5 mg PO DAILY [facility] Last Admin: 08/08/17 08:00 Dose: 5 mg Lorazepam (Ativan Tab(*)) 1 mg PO Q6H PRN PRN Reason: AGITATION Magnesium Hydroxide (Milk Of Magnesia Liq*) 30 ml PO DAILY PRN PRN Reason: CONGESTION Omeprazole (Prilosec Cap*) 20 mg PO DAILY@0730 [facility] Last Admin: 08/08/17 07:57 Dose: 20 mg Oxybutynin Chloride (Ditropan Xl Tab*) 10 mg PO DAILY [facility] Last Admin: 08/08/17 08:00 Dose: 10 mg Paroxetine HCl (Paxil Tab*) 10 mg PO DAILY [facility] Last Admin: 08/08/17 08:01 Dose: 10 mg Sodium Biphosphate/Sodium Phosphate (Fleet Enema*) 1 bottle [place] DAILY PRN PRN Reason: CONSTIPATION Vital Signs - 8 hr 08/08/17 08/08/17 08/08/17 03:41 07:51 08:00 Temperature 99.1 F 98.6 F Pulse Rate 78 100 Respiratory 16 18 20 Rate Blood Pressure 153/73 131/107 (mmHg) O2 Sat by Pulse 95 96 Oximetry 08/08/17 08/08/17 08:24 11:05 Temperature Pulse Rate Respiratory 20 24 Rate Blood Pressure (mmHg) O2 Sat by Pulse Oximetry Oxygen Devices in Use Now: None Appearance: Alert, resting, mask like appearance Eyes: No Scleral Icterus Ears/Nose/Mouth/Throat: Mucous Membranes Moist Neck: Trachea Midline Respiratory: Symmetrical Chest Expansion and Respiratory Effort, Clear to Auscultation Cardiovascular: NL Sounds; No Murmurs; No JVD, RRR Abdominal: NL Sounds; No Tenderness; No Distention Extremities: No Clubbing, Cyanosis, - - severely contracted upper extremities Skin: - - warm and dry Neurological: - - advanced PSP dementia, non-verbal at baseline Nutrition: Taking PO's Result Diagrams: 08/08/17 06:26 08/08/17 06:26 Additional Lab and Data: Lab Results Microbiology and Other Data: Microbiology 08/01/17 18:20 Skin and Soft Tissue MRSA/MSSA (PCR - Final Hand Right Mrsa Negative S.aureus Negative Gram Stain - Final Wound Culture - Preliminary Pseudomonas Aeruginosa Corynebacterium Striatum 08/01/17 19:26 Nasal Screen MRSA (PCR)(ALYSE) - Final Nasal Mrsa Negative Diagnostic Imaging: Patient Name: RODRI PIERSON Medical Record#: [id number] Ordering Physician: George OLGUIN Acct.#: [id number] : 1955 Age: 62 Sex: M Location: [address] - MEDICAL Exam Date: 08/02/17 1547 ADM Status: ADM IN Order Information: MRI UPPER EXTREMITY RIGHT WO Accession Number: [id number] CPT: 92840 Indication: Osteomyelitis of the right hand Image sequences: Axial T2 fat sat, sagittal T1, axial T1, sagittal T2 fat sat, coronal T2 fat sat, coronal T1 and sagittal T1-weighted images were obtained. The distal radius and ulna demonstrates no evidence of bone marrow replacement. The carpal bones demonstrate no evidence of bone marrow replacement. No evidence of bone marrow edema is noted. Diffuse soft tissue edema is noted. IMPRESSION: THE RIGHT HAND AND WRIST DEMONSTRATES NO EVIDENCE OF BONE MARROW REPLACEMENT TO SUGGEST OSTEOMYELITIS. <Electronically signed by Lacey Gonzalez MD in [place]> 08/04/171820 Dictated By: Lacey Gonzalez MD Dictated Date/Time: 08/04/171820 Transcribed Date/Time: 08/04/171818 Copy to: CC:Anders Emery DMD; Atul Tan MD; Aftab Bay MD; Anna Mcgowan DO ; Carol Ventura MD; Sofi Lara MD; George OLGUIN Imaging - [facility] Imaging - [facility] [address] [place] [address] ph ([phone]) ph ([phone]) ph ([phone]) 1 of 1 Assess/Plan/Problems-Billing Assessment: This is a 62 year ol male, resident of [facility], with hx of PSP, HTN and Psoriasis that presented to ER with cellulitis and osteo of contracted right hand and thumb, failed outpatient treatment with clindamycin. - Patient Problems (1) Anxiety Code(s): F41.9 - ANXIETY DISORDER, UNSPECIFIED SNOMED Code(s): 45035962 Comment: - Significant agitation at times 2/2 PSP dementia - Started on clonazepam BID with ativan TID PRN (2) Cellulitis of hand, right Code(s): L03.113 - CELLULITIS OF RIGHT UPPER LIMB SNOMED Code(s): 59480779 Comment: - With osteomyelitis - ID following, Continue cefepime and follow cultures - No white count today - Discussed again with surgery, while cellulitis of the hand appears better, the thumb appears worse, family open to discussing surgical options again if this is possible - Will order morphine PRN wound care and measurements (3) DNR (do not resuscitate) (4) DVT prophylaxis Code(s): KSM0145 - SNOMED Code(s): 117037336 Comment: Heparin SubQ (5) HTN (hypertension) Code(s): I10 - ESSENTIAL (PRIMARY) HYPERTENSION SNOMED Code(s): 10735216 Comment: - Improved on lisinopril, may be anxiety component as well (6) Insomnia Code(s): G47.00 - INSOMNIA, UNSPECIFIED SNOMED Code(s): 260925568 Comment: - Trial clonazepam (7) Osteomyelitis Code(s): M86.9 - OSTEOMYELITIS, UNSPECIFIED SNOMED Code(s): 09842719 Comment: - Continue atbx as per ID, however, wound appears waxing and waning with progression - Reconsulted and discussed with surgery today - Appreciate recommendations from all disciplines (8) PSP (progressive supranuclear palsy) Code(s): G23.1 - PROGRESSIVE SUPRANUCLEAR OPHTHALMOPLEGIA SNOMED Code(s): 48201122 Comment: - Continue Sinemet - At baseline, non-verbal 2/2 dementia - Add clonazepam BID - Discussed botox with Dr. Johnson today. We will set up for outpatient injections with Dr. Flores to loosen contractures of upper extremities to aid in healing and relieve pressure. Whether surgical intervention or not, should still provide palliative relief and hopefully prevent new pressure wounds Status and Disposition: Remain inpatient. Appreciate input from all disciplines. Counseling and/or Coordination of Care Minutes: coordinated with staff, Dr. Bay, Dr. Johnson and orthopedics
[2017-08-08] MEDS ORDERED: Morphine INJ* 2 MG/ML 1 ML SYRINGE (TWO MG - NEW SYRINGE VERSION) IV ONE (13:59)
[2017-08-08] MEDS ORDERED: clonazePAM TAB(*) 1 MG PO ONE (20:08)
[2017-08-08] MEDS ORDERED: clonazePAM TAB(*) 1 MG ONE (20:26)
[2017-08-08] MEDS: clonazePAM TAB(*) 1 MG PO SCH (20:41)
[2017-08-08] MEDS: LORazepam TAB(*) 1 MG PO SCH (20:41)
[2017-08-08] MEDS: Morphine INJ* 2 MG/ML 1 ML SYRINGE (TWO MG - NEW SYRINGE VERSION) IV PRN (22:26)
--- NOTE | 2017-08-08 22:39 | CONS ---
CONSULTATION REPORT: DATE OF CONSULT: 08/08/17 PROVIDER: Dr. Zenaida Moctezuma. HISTORY OF PRESENT ILLNESS: Consult from Orthopedics was requested by medicine due to worsening appearance of patient's infected right thumb. patient is nonverbal and unable to communicate in any way. Nursing notes that patient becomes diaphoretic and appears in obvious pain with any manipulation of the right hand. The patient has been seen by Dr. Moctezuma in the past and after additional discussion today between Dr. Moctezuma and Dr. Bay from Infectious Disease, it was decided again in support of decision made on 08/05/17 that there will be no surgical intervention at this time due to risk of poor wound healing. PHYSICAL EXAM: General: Awake, in no distress at rest. Neuro: Does not answer questions. Does acknowledge by presence. Right hand without edema. Right thumb is erythematous and edematous from distal aspect down to the MCP and overlying the thenar musculature on the palmar surface. Erythema does not extend past the wrist. There is a wound of the thumb measuring ( per nursing) 1.2 cm x 1.7 cm x 1 cm as well as of the index finger measuring 0.5 x 0.5 x 0.5 cm. The patient is contracted and I am unable to separate his thumb from his index finger. It appears to cause him distress whenever this hand is touched or the wounds are attempted to be assessed. ASSESSMENT: Cellulitis, right upper extremity. PLAN: I spoke with Dr. Moctezuma to alert her of the concern of the medical team who has been following him. After discussion with Dr. Bay, she feels that it is appropriate to continue the antibiotic regime as recommended by Dr. Bay, thereafter she will be glad to assess the patient and plans to see him as an outpatient in 2 weeks or as needed. Hospitalists have arranged for patient to have botox injections in attempt to reduce contracture. SHARIF CHISHOLM [id number]/CPS #: [id number] MTDD
[2017-08-09] MEDS: LORazepam TAB(*) 1 MG PO SCH ×4 (02:12→21:41)
[2017-08-09] MEDS: Acetaminophen TAB* 325 MG PO PRN ×3 (02:12→18:39)
[2017-08-09] MEDS: Ibuprofen TAB* 400 MG PO PRN (05:38)
[2017-08-09] MEDS: Heparin VIAL(*) 5000 UNITS/ML VIAL (FIVE THOUSAND) SUBCUT SCH ×3 (05:38→21:46)
[2017-08-09] MEDS: Carbidopa/Levodop 25/100 MG TAB(*) PO SCH ×3 (05:38→18:40)
[2017-08-09] MEDS: Omeprazole CAP* 20 MG PO SCH (07:35)
[2017-08-09] MEDS ORDERED: clonazePAM TAB(*) 0.5 MG PO SCH (09:00)
[2017-08-09] MEDS: clonazePAM TAB(*) 1 MG PO SCH ×2 (09:42→21:40)
[2017-08-09] MEDS: Oxybutynin XL TAB* 5 MG PO SCH (09:42)
[2017-08-09] MEDS: Lisinopril TAB* 5 MG PO SCH (09:42)
[2017-08-09] MEDS: Lactulose* 15 ML UDC PO SCH (09:43)
[2017-08-09] MEDS: PARoxetine HCL TAB* 10 MG PO SCH (09:43)
[2017-08-09] MEDS: D5W IM SCH ×2 (10:10)
[2017-08-09] MEDS: CEFEPIME IM SCH ×2 (10:10)
--- NOTE | 2017-08-09 10:56 | PN ---
Progress Note - Progress Note Date of Service: 08/09/17 SOAP: Subjective: CC: R hand infection HPI: 62 yo man with PSP and R medial hand erythema and thumb ulcer. RN feels he seems more relaxed today. No diarrhea. Objective: Vital Signs Temp 37.8 C 08/09/17 02:57 Pulse 95 08/09/17 07:31 Resp 20 08/09/17 09:43 BP 124/72 08/09/17 07:31 Pulse Ox 94 08/09/17 07:31 Intake & Output 08/08/17 08/09/17 08/09/17 18:59 06:59 18:59 Intake Total 920 360 240 Balance 920 360 240 Intake: IV Fluids 60 ABX - CEFEPIME 60 IVPB 50 ABX - CEFEPIME 50 Oral 860 310 240 Other: Estimated Void Large Large # Bowel Movements 1 1 Estimated Stool Amount Medium Small # Voids 2 1 Gen:awake, no distress Neuro: regards, does not answer questions HEENT:PERRL, MMM Heart:RRR no murmur Lungs:CTA BL Abd:+BS NTND soft Skin: no rash MSK: R hand minimal edema; thumb and 1st finger erythema and edema Assessment: 1. 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 psoriasis 4. anxiety Plan: 1. continue cefepime Q12hrs; given progressive dementia and severe likely incurable infection, palliative care may be appropriate. Discussed Loren Sanchez NP
--- NOTE | 2017-08-09 14:31 | PN ---
Subjective Date of Service: 08/09/17 Interval History: Mr. Sanderson is unable to offer any complaint today. He appears to be in no acute distress and at baseline as described by nursing and patient's . Family History: Unchanged from Admission Social History: Unchanged from Admission Past Medical History: Findings - Patient has PSP. Objective Active Medications: Acetaminophen (Tylenol Tab*) 650 mg PO Q4H PRN Carbidopa/Levodopa (Sinemet 25/100 Tab(*)) 3 tab PO 0700,1130,1800 [facility] Clonazepam (Klonopin Tab(*)) 2 mg PO BID [facility] Glycerin (Glycerin Adult Supp*) 1 supp [place] DAILY PRN Heparin Sodium (Porcine) (Heparin Vial(*)) 5,000 units SUBCUT Q8HR [facility] Cefepime HCl 2 gm/ Dextrose 50 mls @ 100 mls/hr IM Q12H [facility] Ibuprofen (Motrin Tab*) 400 mg PO Q8H PRN Lactulose (Lactulose*) 15 ml PO DAILY [facility] Lisinopril (Prinivil Tab*) 5 mg PO DAILY [facility] Lorazepam (Ativan Tab(*)) 1 mg PO Q6H [facility] Magnesium Hydroxide (Milk Of Magnesia Liq*) 30 ml PO DAILY PRN Morphine Sulfate (Morphine Inj (Syringe)*) 2 mg IV Q4H PRN Omeprazole (Prilosec Cap*) 20 mg PO DAILY@0730 [facility] Oxybutynin Chloride (Ditropan Xl Tab*) 10 mg PO DAILY [facility] Paroxetine HCl (Paxil Tab*) 10 mg PO DAILY [facility] Sodium Biphosphate/Sodium Phosphate (Fleet Enema*) 1 bottle RI DAILY PRN Vital Signs: Temp Pulse Resp BP Pulse Ox 100.0 F 95 20 124/72 94 08/09/17 02:57 08/09/17 07:31 08/09/17 09:43 08/09/17 07:31 08/09/17 07:31 Oxygen Devices in Use Now: None Appearance: Male lying in bed in NAD Eyes: No Scleral Icterus Ears/Nose/Mouth/Throat: Mucous Membranes Moist Neck: Trachea Midline Respiratory: Symmetrical Chest Expansion and Respiratory Effort, Clear to Auscultation Cardiovascular: NL Sounds; No Murmurs; No JVD, No Edema Abdominal: NL Sounds; No Tenderness; No Distention Neurological: - - Alert, nonverbal, contractures most pronounced to right upper extremity Nutrition: Taking PO's Result Diagrams: 08/08/17 06:26 08/08/17 06:26 Additional Lab and Data: . Microbiology and Other Data: . Diagnostic Imaging: . Assess/Plan/Problems-Billing Assessment: Mr. Sanderson is a 62 year old male, resident of [facility], with hx of progressive supranuclear palsy and parkinson's who was admitted on 08/01/17 with cellulitis and osteomyelitis of contracted right hand and thumb, failed outpatient treatment with clindamycin. - Patient Problems (1) Cellulitis of hand, right Code(s): L03.113 - CELLULITIS OF RIGHT UPPER LIMB SNOMED Code(s): 11942194 Comment: - With osteomyelitis. - ID following, continue cefepime BID. - Discussed again with surgery, while cellulitis of the hand appears better, the thumb appears worse, family open to discussing surgical options again if this is possible after completion of 2 weeks of antibiotics. Patient to follow up outpatient with orthopedics. - Continue morphine prn. (2) PSP (progressive supranuclear palsy) Comment: - At baseline, non-verbal 2/2 dementia - Continue Sinemet - Clonazepam BID added with good effect on rigidity, Dr. Camargo recommends baclofen which has been added today, with hold parameters for sedation. - Discussed botox with Dr. Johnson today. We will set up for outpatient injections with Dr. Flores to loosen contractures of upper extremities to aid in healing and relieve pressure. Whether surgical intervention or not, should still provide palliative relief and hopefully prevent new pressure wounds. - Palliative care consult placed. (3) Parkinson disease Comment: - Continue carbidopa/levadopa. (4) Anxiety Comment: - Significant agitation at times 2/2 PSP dementia - Started on clonazepam BID with ativan TID PRN (5) HTN (hypertension) Comment: - SBP 120-150s - Improved on lisinopril, may be related to anxiety as well. (6) Insomnia Comment: - Continue clonazepam. (7) Constipation Comment: - Chronic constipation, has had multiple BMs while admitted. - Continue lactulose, glycerin, milk of mag and fleet enema as needed. (8) DVT prophylaxis Comment: - Heparin SubQ (9) DNR (do not resuscitate) Comment: Status and Disposition: Remain inpatient. Appreciate input from all disciplines. Anticipate discharge to [facility] on Saturday if remains stable.
[2017-08-09] MEDS ORDERED: Morphine ORAL.SOLN 10 mg* 2 MG/ML UDC 5 ml PO PRN (15:10)
--- NOTE | 2017-08-09 15:16 | CONSULT ---
Palliative / Hospice Consult Ordering Provider: Loren Sanchez - Subjective Code Status: DNR Advance Directives Location: In Chart MOLST Part A Completed: Yes - DNR Date: 04/05/17 MOLST Part E Completed:: Yes - DNI, comfort measures only Date: 04/05/17 HCP Completed: Yes - Millie Sanderson - History or Present Illness History or Present Illness: THis 62 year old man with severe neurologic impairment due to Parkinson's and progressive supranuclear palsy, who has been living in a SNF and has been bedbound and nonverbal for some time, is now hospitalized for a right hand cellulitis and possible underlying osteomyelitis. His MRI did not indicate osteo but he has severe joint deformity and elevated ESR and CRP. I was asked to see this patient due to a consideration of intervention via surgery for the infection, and in the process found his MOLST form which specifies DNR, DNI and comfort measures only. Lab Values: Laboratory Last Values WBC 7.4 10^3/ul (3.5-10.8) 08/08/17 06:26 RBC 4.63 10^6/ul (4.0-5.4) 08/08/17 06:26 Hgb 15.1 g/dl (14.0-18.0) 08/08/17 06:26 Hct 44 % (42-52) 08/08/17 06:26 MCV 95 fL (80-94) H 08/08/17 06:26 MCH 33 pg (27-31) H 08/08/17 06:26 MCHC 34 g/dl (31-36) 08/08/17 06:26 RDW 13 % (10.5-15) 08/08/17 06:26 Plt Count 228 10^3/ul (150-450) 08/08/17 06:26 MPV 8 um3 (7.4-10.4) 08/08/17 06:26 Neut % (Auto) 63.6 % (38-83) 08/08/17 06:26 Lymph % (Auto) 18.7 % (25-47) L 08/08/17 06:26 Iroquois % (Auto) 14.8 % (1-9) H 08/08/17 06:26 Eos % (Auto) 2.0 % (0-6) 08/08/17 06:26 Baso % (Auto) 0.9 % (0-2) 08/08/17 06:26 Absolute Neuts (auto) 4.7 10^3/ul (1.5-7.7) 08/08/17 06:26 Absolute Lymphs (auto) 1.4 10^3/ul (1.0-4.8) 08/08/17 06:26 Absolute Monos (auto) 1.1 10^3/ul (0-0.8) H 08/08/17 06:26 Absolute Eos (auto) 0.1 10^3/ul (0-0.6) 08/08/17 06:26 Absolute Basos (auto) 0.1 10^3/ul (0-0.2) 08/08/17 06:26 Absolute Nucleated RBC 0 10^3/ul 08/08/17 06:26 Nucleated RBC % 0 08/08/17 06:26 ESR 46 mm/Hr (0-20) H 08/01/17 15:06 INR (Anticoag Therapy) 1.01 (0.77-1.02) 08/01/17 15:06 Sodium 127 mmol/L (133-145) L 08/08/17 06:26 Potassium 4.3 mmol/L (3.5-5.0) 08/08/17 06:26 Chloride 96 mmol/L (101-111) L 08/08/17 06:26 Carbon Dioxide 22 mmol/L (22-32) 08/08/17 06:26 Anion Gap 9 mmol/L (2-11) 08/08/17 06:26 BUN 19 mg/dL (6-24) 08/08/17 06:26 Creatinine 0.63 mg/dL (0.67-1.17) L 08/08/17 06:26 Est GFR ( Amer) 166.0 (>60) 08/08/17 06:26 Est GFR (Non-Af Amer) 129.0 (>60) 08/08/17 06:26 BUN/Creatinine Ratio 30.2 (8-20) H 08/08/17 06:26 Glucose 97 mg/dL (70-100) 08/08/17 06:26 Lactic Acid 1.9 mmol/L (0.5-2.0) 08/01/17 15:06 Calcium 10.1 mg/dL (8.6-10.3) 08/08/17 06:26 Magnesium 2.1 mg/dL (1.9-2.7) 08/05/17 07:35 Total Bilirubin 0.70 mg/dL (0.2-1.0) 08/08/17 06:26 AST 55 U/L (13-39) H 08/08/17 06:26 ALT 70 U/L (7-52) H 08/08/17 06:26 Alkaline Phosphatase 81 U/L (34-104) 08/08/17 06:26 C-Reactive Protein 35.34 mg/L (< 5.00) H 08/07/17 08:42 Total Protein 7.8 g/dL (6.4-8.9) 08/08/17 06:26 Albumin 4.4 g/dL (3.2-5.2) 08/08/17 06:26 Globulin 3.4 g/dL (2-4) 08/08/17 06:26 Albumin/Globulin Ratio 1.3 (1-3) 08/08/17 06:26 Vancomycin Trough 12.6 mcg/mL 08/05/17 07:35 - Objective Active Medications: Acetaminophen (Tylenol Tab*) 650 mg PO Q4H PRN PRN Reason: FEVER/PAIN Last Admin: 08/09/17 07:30 Dose: 650 mg Baclofen (Lioresal Tab*) 10 mg PO 1000,2000 [facility] Stop: 08/10/17 10:01 Carbidopa/Levodopa (Sinemet 25/100 Tab(*)) 3 tab PO 0700,1130,1800 [facility] Last Admin: 08/09/17 11:41 Dose: 3 tab Clonazepam (Klonopin Tab(*)) 2 mg PO BID [facility] Last Admin: 08/09/17 09:42 Dose: 2 mg Glycerin (Glycerin Adult Supp*) 1 supp [place] DAILY PRN PRN Reason: CONSTIPATION Heparin Sodium (Porcine) (Heparin Vial(*)) 5,000 units SUBCUT Q8HR [facility] Last Admin: 08/09/17 14:30 Dose: 5,000 units Cefepime HCl (Maxipime 2 Gm In Dextrose Duplex (*)) 2 gm in 50 mls @ 100 mls/ hr IV Q12H [facility] Ibuprofen (Motrin Tab*) 400 mg PO Q8H PRN PRN Reason: PAIN Last Admin: 08/09/17 05:38 Dose: 400 mg Lactulose (Lactulose*) 15 ml PO DAILY [facility] Last Admin: 08/09/17 09:43 Dose: 15 ml Lisinopril (Prinivil Tab*) 5 mg PO DAILY [facility] Last Admin: 08/09/17 09:42 Dose: 5 mg Lorazepam (Ativan Tab(*)) 1 mg PO Q6H [facility] Last Admin: 08/09/17 14:31 Dose: 1 mg Magnesium Hydroxide (Milk Of Magnesia Liq*) 30 ml PO DAILY PRN PRN Reason: CONGESTION Morphine Sulfate (Morphine Inj (Syringe)*) 2 mg IV Q4H PRN PRN Reason: PAIN Last Admin: 08/08/17 22:26 Dose: 2 mg Omeprazole (Prilosec Cap*) 20 mg PO DAILY@0730 [facility] Last Admin: 08/09/17 07:35 Dose: 20 mg Oxybutynin Chloride (Ditropan Xl Tab*) 10 mg PO DAILY [facility] Last Admin: 08/09/17 09:42 Dose: 10 mg Paroxetine HCl (Paxil Tab*) 10 mg PO DAILY [facility] Last Admin: 08/09/17 09:43 Dose: 10 mg Sodium Biphosphate/Sodium Phosphate (Fleet Enema*) 1 bottle [place] DAILY PRN PRN Reason: CONSTIPATION Vital Signs: Vital Signs: Temp Pulse Resp BP Pulse Ox 100.0 F 95 24 124/72 94 08/09/17 02:57 08/09/17 07:31 08/09/17 14:31 08/09/17 07:31 08/09/17 07:31 Patient Weight: Weight 246 lb 3.2 oz Intake and Output: Intake & Output 08/07/17 08/08/17 08/09/17 08/10/17 06:59 06:59 06:59 06:59 Intake Total 3940 5595 1280 680 Balance 3940 5595 1280 680 Intake: IV Fluids 100 100 60 ABX - CEFEPIME 100 100 60 IVPB 55 50 ABX - CEFEPIME 55 50 Oral 3840 5440 1170 680 Other: Estimated Void Large Large Large Small # Bowel Movements 1 1 1 0 Estimated Stool Amount Medium Small Small # Voids 3 2 1 1 ADLs: Meal Record Start: 08/01/17 18: 55 Freq: DAILY@0900,1400,1800 Status: Active Protocol: Created 08/01/17 18:55 System (Rec: 08/01/17 18:55 System MED-C04) Document 08/02/17 09:00 [id number] (Rec: 08/02/17 09:17 [id number] MED-C11) Document 08/02/17 14:00 [id number] (Rec: 08/02/17 15:00 [id number] MED-C09) Document 08/02/17 18:00 [id number] (Rec: 08/02/17 19:21 [id number] [facility] Document 08/02/17 18:00 [id number] (Rec: 08/02/17 19:18 [id number] MED-C09) Document 08/03/17 09:00 GGH8518 (Rec: 08/03/17 11:32 MHJ5001 MED-C07) Document 08/03/17 14:00 [id number] (Rec: 08/03/17 15:10 [id number] MED-C11) Document 08/03/17 18:00 [id number] (Rec: 08/03/17 22:21 [id number] MED-C11) Document 08/04/17 09:00 JRH7017 (Rec: 08/04/17 12:05 [id number] MED-C09) Document 08/04/17 13:37 [id number] (Rec: 08/04/17 13:38 YRS3799 MED-C11) Document 08/04/17 18:00 UGT1893 (Rec: 08/04/17 21:37 [id number] MED-C09) Document 08/05/17 09:00 WLO8559 (Rec: 08/05/17 11:19 RKH2499 MED-C09) Document 08/05/17 14:00 XJN0938 (Rec: 08/05/17 15:22 [id number] MED-C09) Document 08/05/17 18:00 WMB8828 (Rec: 08/05/17 18:42 GGI9211 MED-C11) Document 08/06/17 09:00 NRS4698 (Rec: 08/06/17 10:40 SAV1554 MED-C09) Document 08/06/17 14:00 TVN1511 (Rec: 08/06/17 14:06 SAN1009 MED-M03) Document 08/06/17 18:00 LOF1613 (Rec: 08/06/17 18:18 [id number] MED-C11) Document 08/07/17 09:00 YIG0044 (Rec: 08/07/17 13:31 [id number] MED-C11) Document 08/07/17 14:00 CJI7650 (Rec: 08/07/17 14:29 EKQ1512 MED-C11) Document 08/07/17 18:00 EJF4507 (Rec: 08/07/17 18:48 [id number] MED-C09) Document 08/08/17 09:00 MTZ8274 (Rec: 08/08/17 09:34 YLV8594 MED-C09) Document 08/08/17 14:00 WIW4503 (Rec: 08/08/17 15:02 RHU7112 MED-C09) Document 08/08/17 18:00 [id number] (Rec: 08/08/17 18:33 VBV6098 MED-C11) Document 08/09/17 09:00 VGN1253 (Rec: 08/09/17 09:29 [id number] MED-C09) Document 08/09/17 13:23 SWH4762 (Rec: 08/09/17 13:24 SPO3284 MED-C11) Intake and Output Start: 08/01/17 13: 15 Freq: Status: Active Protocol: Created 08/01/17 13:15 System (Rec: 08/01/17 13:15 System ED-C24) Intake and Output Start: 08/01/17 18: 55 Freq: DAILY@0600,1400,2200 Status: Active Protocol: Created 08/01/17 18:55 System (Rec: 08/01/17 18:55 System MED-C04) Document 08/01/17 22:00 EQX2154 (Rec: 08/01/17 23:27 YNI2757 MED-C11) Document 08/02/17 04:21 EHL2079 (Rec: 08/02/17 04:22 ELR1607 MEDL-C01) Document 08/02/17 14:00 XTP7137 (Rec: 08/02/17 15:00 BRR8715 MED-C09) Document 08/02/17 22:00 [id number] (Rec: 08/02/17 23:23 XSD1407 MED-C09) Document 08/03/17 02:57 HLX5825 (Rec: 08/03/17 02:57 ZYC4975 MED-C26) Document 08/03/17 06:31 OCE5581 (Rec: 08/03/17 06:31 JZS3125 MED-C11) Document 08/03/17 14:00 WKY5322 (Rec: 08/03/17 15:10 RLU3969 MED-C11) Document 08/03/17 22:00 FWM8256 (Rec: 08/03/17 22:26 OYG7726 MED-C11) Document 08/04/17 06:00 UJW3326 (Rec: 08/04/17 06:30 OER8057 MED-C42) Document 08/04/17 13:37 BQF7928 (Rec: 08/04/17 13:38 IAO4832 MED-C11) Document 08/04/17 21:38 UYT1097 (Rec: 08/04/17 21:39 NQO1068 MED-C09) Document 08/05/17 06:00 DER1176 (Rec: 08/05/17 06:45 YIN1782 MED-C42) Document 08/05/17 14:00 IVF7508 (Rec: 08/05/17 15:22 BUH0537 MED-C09) Document 08/05/17 22:00 NFL2326 (Rec: 08/05/17 22:49 VDP0262 MED-C11) Document 08/06/17 05:59 HPF2657 (Rec: 08/06/17 06:00 CZW9967 MEDL-C01) Document 08/06/17 14:00 LWJ5670 (Rec: 08/06/17 14:06 JPF6620 MED-M03) Document 08/06/17 20:36 GPN7916 (Rec: 08/06/17 20:40 PGU1514 MED-M04) Document 08/07/17 04:38 LJP0887 (Rec: 08/07/17 04:39 LTD0494 MEDL-C01) Document 08/07/17 14:00 RTD4741 (Rec: 08/07/17 14:24 WZL4740 MED-C14) Document 08/07/17 22:00 IYF7674 (Rec: 08/07/17 22:44 WKR8428 MED-C09) Document 08/07/17 23:53 FMW9133 (Rec: 08/07/17 23:53 JTQ0846 MED-C26) Document 08/08/17 03:43 HCY9369 (Rec: 08/08/17 03:43 JTO6823 MED-C26) Document 08/08/17 05:17 JIL2035 (Rec: 08/08/17 05:18 RTE6921 MED-C26) Document 08/08/17 14:00 HPS8055 (Rec: 08/08/17 15:02 DYE2843 MED-C09) Document 08/08/17 21:38 ATH5837 (Rec: 08/08/17 21:38 SPA9352 MED-C11) Document 08/09/17 04:41 EIW4609 (Rec: 08/09/17 04:41 OEN8009 MED-C26) Document 08/09/17 05:42 DPN4958 (Rec: 08/09/17 05:42 HCO7614 MED-M09) Document 08/09/17 13:23 [id number] (Rec: 08/09/17 13:24 [id number] MED-C11) General Impression: Distressed-appearing man with LE spastic movements, and right hand contracted on anterior chest with erythema and swelling. Head: Symmetrical Eyes: No Scleral Icterus Ears/Nose/Mouth/Throat: Mucous Membranes Moist Neck: Trachea Midline Cardiovascular: NL Sounds; No Murmurs; No JVD, RRR Respiratory: Symmetrical Chest Expansion and Respiratory Effort Abdominal: NL Sounds; No Tenderness; No Distention Extremities: No Clubbing, Cyanosis, - - severely contracted upper extremities Neurological: - - makes eye contact, - Assessment Assessment: This patient has advanced neurologic deterioration from degenrative disease, Parkinson's and PSP, and he now has severe contracture and deformity of the right hand with cellulitis. He is apparently schedule for Botox therapy to assist in release of the contractures, and he might also benefit from the addition of Baclofen. He will receive a long course of antibiotic therapy for presumed associated osteomyelitis, and will return to the SNF. Although this patient has a DNR/DNI and comfort care preference in place, Loren Sanchez has spoken with the who says she wishes to pursue aggressive treatment. The patient at this point would qualify for hospice services on the basis of his neurologic disease, as he has a FAST score over 7d, is totally dependent for all ADLs, can not speak, and requires total care, with a prognosis of less than 6 months. However, his (HCP) is not willing to discuss options at this time and apparently may want to reverse previously determined advance directives. I would be glad to speak with her in the future if she is open to it , but she indicated to Loren today that she does not want to address these issues at this time. Thanks for asking for my input. - Plan Consult Plan (MU): Palliative - Time On Unit Date of Evaluation: 08/09/17 Hospice Consult Time in: 14:30 Hospice Consult Time Out: 15:20 Hospice Consult Time Total: 50 > 50% of Time Spend In Counseling or Coordinating Care: Yes
[2017-08-09] MEDS ORDERED: Baclofen TAB* 10 MG PO SCH (20:00)
[2017-08-09] MEDS: Morphine INJ* 2 MG/ML 1 ML SYRINGE (TWO MG - NEW SYRINGE VERSION) IV PRN (21:36)
[2017-08-09] MEDS: Cefepime 2 GM in Dextrose(*) 2 GM/50 ML BAG IV SCH (21:41)
[2017-08-09] MEDS: Baclofen TAB* 10 MG PO SCH (21:50)
[2017-08-10] MEDS: Morphine INJ* 2 MG/ML 1 ML SYRINGE (TWO MG - NEW SYRINGE VERSION) IV PRN (03:30)
[2017-08-10] MEDS: LORazepam TAB(*) 1 MG PO SCH ×4 (03:49→21:04)
[2017-08-10] MEDS: Heparin VIAL(*) 5000 UNITS/ML VIAL (FIVE THOUSAND) SUBCUT SCH ×3 (05:38→21:04)
[2017-08-10] MEDS: Carbidopa/Levodop 25/100 MG TAB(*) PO SCH ×3 (06:00→18:54)
[2017-08-10] MEDS: clonazePAM TAB(*) 1 MG PO SCH ×2 (08:03→21:03)
[2017-08-10] MEDS: Oxybutynin XL TAB* 5 MG PO SCH (08:03)
[2017-08-10] MEDS: PARoxetine HCL TAB* 10 MG PO SCH (08:03)
[2017-08-10] MEDS: Lisinopril TAB* 5 MG PO SCH (08:04)
[2017-08-10] MEDS: Omeprazole CAP* 20 MG PO SCH (08:04)
[2017-08-10] MEDS: Cefepime 2 GM in Dextrose(*) 2 GM/50 ML BAG IV SCH ×2 (08:44→21:03)
[2017-08-10] MEDS: Lactulose* 15 ML UDC PO SCH (08:49)
--- NOTE | 2017-08-10 09:23 | PN ---
Subjective Date of Service: 08/10/17 Interval History: Pt is non-verbal. He is eating breakfast with the help of the aide. Objective Active Medications: Acetaminophen (Tylenol Tab*) 650 mg PO Q4H PRN PRN Reason: FEVER/PAIN Last Admin: 08/09/17 18:39 Dose: 650 mg Baclofen (Lioresal Tab*) 10 mg PO 1000,2000 [facility] Stop: 08/10/17 10:01 Last Admin: 08/09/17 21:50 Dose: 10 mg Carbidopa/Levodopa (Sinemet 25/100 Tab(*)) 3 tab PO 0700,1130,1800 [facility] Last Admin: 08/10/17 06:00 Dose: 3 tab Clonazepam (Klonopin Tab(*)) 2 mg PO BID [facility] Last Admin: 08/10/17 08:03 Dose: 2 mg Glycerin (Glycerin Adult Supp*) 1 supp [place] DAILY PRN PRN Reason: CONSTIPATION Heparin Sodium (Porcine) (Heparin Vial(*)) 5,000 units SUBCUT Q8HR [facility] Last Admin: 08/10/17 05:38 Dose: 5,000 units Cefepime HCl (Maxipime 2 Gm In Dextrose Duplex (*)) 2 gm in 50 mls @ 100 mls/ hr IV Q12H [facility] Last Admin: 08/10/17 08:44 Dose: 100 mls/hr Ibuprofen (Motrin Tab*) 400 mg PO Q8H PRN PRN Reason: PAIN Last Admin: 08/09/17 05:38 Dose: 400 mg Lactulose (Lactulose*) 15 ml PO DAILY [facility] Last Admin: 08/10/17 08:49 Dose: 15 ml Lisinopril (Prinivil Tab*) 5 mg PO DAILY [facility] Last Admin: 08/10/17 08:04 Dose: 5 mg Lorazepam (Ativan Tab(*)) 1 mg PO Q6H [facility] Last Admin: 08/10/17 08:03 Dose: 1 mg Magnesium Hydroxide (Milk Of Magnesia Liq*) 30 ml PO DAILY PRN PRN Reason: CONGESTION Morphine Sulfate (Morphine Inj (Syringe)*) 2 mg IV Q4H PRN PRN Reason: PAIN Last Admin: 08/10/17 03:30 Dose: 2 mg Morphine Sulfate (Morphine Oral.Soln 10 Mg*) 5 mg PO Q4H PRN PRN Reason: PAIN Omeprazole (Prilosec Cap*) 20 mg PO DAILY@0730 [facility] Last Admin: 08/10/17 08:04 Dose: 20 mg Oxybutynin Chloride (Ditropan Xl Tab*) 10 mg PO DAILY [facility] Last Admin: 08/10/17 08:03 Dose: 10 mg Paroxetine HCl (Paxil Tab*) 10 mg PO DAILY [facility] Last Admin: 08/10/17 08:03 Dose: 10 mg Sodium Biphosphate/Sodium Phosphate (Fleet Enema*) 1 bottle [place] DAILY PRN PRN Reason: CONSTIPATION Vital Signs - 8 hr 08/10/17 08/10/17 08/10/17 03:11 03:30 03:49 Temperature 99.8 F Pulse Rate 125 Respiratory 22 30 30 Rate Blood Pressure 146/87 (mmHg) O2 Sat by Pulse 99 Oximetry 08/10/17 08/10/17 08/10/17 04:33 06:00 08:03 Temperature Pulse Rate Respiratory 24 28 24 Rate Blood Pressure (mmHg) O2 Sat by Pulse Oximetry Oxygen Devices in Use Now: None Appearance: Middle aged male sitting up in bed being fed breakfast, NAD Eyes: No Scleral Icterus Ears/Nose/Mouth/Throat: Mucous Membranes Moist Respiratory: Symmetrical Chest Expansion and Respiratory Effort, Clear to Auscultation - anteriorly Cardiovascular: NL Sounds; No Murmurs; No JVD, RRR, No Edema Abdominal: NL Sounds; No Tenderness; No Distention Extremities: No Clubbing, Cyanosis, - - R UE/hand with significant contractures , L hand contracted Skin: - - R thumb mildly erythematous, no significant swelling, ulceration on palmar surface of R thumb difficult to visualize Neurological: - - awake, non-verbal Result Diagrams: 08/08/17 06:26 08/08/17 06:26 Additional Lab and Data: . Microbiology and Other Data: . Diagnostic Imaging: . Assess/Plan/Problems-Billing Mr. Sanderson is a 62 year old male, resident of [facility], who has a progressive supranuclear palsy and parkinson's disease and was admitted on with cellulitis and osteomyelitis of contracted right hand and thumb. - Patient Problems (1) Cellulitis of hand, right Current Visit: Yes Status: Acute Code(s): L03.113 - CELLULITIS OF RIGHT UPPER LIMB SNOMED Code(s): 29403715 Comment: The patient was diagnosed with cellulitis and probable osteomyelitis of the R thumb. He has received 9 days of IV abx. Will need outpatient orthopedic follow up with Dr. Moctezuma after completing 2 weeks of IV abx. Will also try to get botox injections with Dr. Flores to help release the contractures and relieve pressure which is likely contributing to his ulceration. (2) Anxiety Current Visit: Yes Status: Acute Code(s): F41.9 - ANXIETY DISORDER, UNSPECIFIED SNOMED Code(s): 06480638 Comment: Continue clonazepam BID and prn ativan. No issues at this time. (3) HTN (hypertension) Current Visit: Yes Status: Acute Code(s): I10 - ESSENTIAL (PRIMARY) HYPERTENSION SNOMED Code(s): 68850467 Comment: BP is under acceptable control. Will continue lisinopril 5 mg daily. (4) Parkinson disease Current Visit: Yes Status: Acute Code(s): G20 - PARKINSON'S DISEASE SNOMED Code(s): 51339357 Comment: Continue sinemet. (5) PSP (progressive supranuclear palsy) Current Visit: Yes Status: Acute Code(s): G23.1 - PROGRESSIVE SUPRANUCLEAR OPHTHALMOPLEGIA SNOMED Code(s): 52610002 Comment: At baseline the patient is non-verbal 2/2 dementia. Conitnue baclofen, clonazepam and sinemet. The patient's is not interested in stopping aggressive measures. (6) DVT prophylaxis Current Visit: Yes Status: Acute Code(s): FKK1748 - SNOMED Code(s): 617785128 Comment: SQ heparin (7) DNR (do not resuscitate) Current Visit: Yes Status: Acute Comment: Status and Disposition: .
[2017-08-10] MEDS: Baclofen TAB* 10 MG PO SCH (11:02)
[2017-08-10] MEDS: Acetaminophen TAB* 325 MG PO PRN (14:10)
[2017-08-11] MEDS: LORazepam TAB(*) 1 MG PO SCH ×4 (03:24→21:35)
[2017-08-11] MEDS: Heparin VIAL(*) 5000 UNITS/ML VIAL (FIVE THOUSAND) SUBCUT SCH ×3 (05:39→21:39)
[2017-08-11] MEDS: Carbidopa/Levodop 25/100 MG TAB(*) PO SCH ×3 (06:16→18:24)
[2017-08-11 06:42] LABS: EGFR Non-African American 133.9 (>60)
[2017-08-11] MEDS: Cefepime 2 GM in Dextrose(*) 2 GM/50 ML BAG IV SCH ×2 (09:00→21:50)
[2017-08-11] MEDS: clonazePAM TAB(*) 1 MG PO SCH ×2 (09:10→21:35)
[2017-08-11] MEDS: PARoxetine HCL TAB* 10 MG PO SCH (09:10)
[2017-08-11] MEDS: Omeprazole CAP* 20 MG PO SCH (09:10)
[2017-08-11] MEDS: Lactulose* 15 ML UDC PO SCH (09:10)
[2017-08-11] MEDS: Oxybutynin XL TAB* 5 MG PO SCH (09:11)
[2017-08-11] MEDS: Lisinopril TAB* 5 MG PO SCH (09:11)
--- NOTE | 2017-08-11 09:18 | PN ---
Subjective Date of Service: 08/11/17 Interval History: Pt is non-verbal. He is being fed breakfast at the time of my visit. The aide states he has been eating well and has no issues with BMs. Objective Active Medications: Acetaminophen (Tylenol Tab*) 650 mg PO Q4H PRN PRN Reason: FEVER/PAIN Last Admin: 08/10/17 14:10 Dose: 650 mg Carbidopa/Levodopa (Sinemet 25/100 Tab(*)) 3 tab PO 0700,1130,1800 [facility] Last Admin: 08/11/17 06:16 Dose: 3 tab Clonazepam (Klonopin Tab(*)) 2 mg PO BID [facility] Last Admin: 08/10/17 21:03 Dose: 2 mg Glycerin (Glycerin Adult Supp*) 1 supp [place] DAILY PRN PRN Reason: CONSTIPATION Heparin Sodium (Porcine) (Heparin Vial(*)) 5,000 units SUBCUT Q8HR [facility] Last Admin: 08/11/17 05:39 Dose: 5,000 units Cefepime HCl (Maxipime 2 Gm In Dextrose Duplex (*)) 2 gm in 50 mls @ 100 mls/ hr IV Q12H [facility] Last Admin: 08/10/17 21:03 Dose: 100 mls/hr Ibuprofen (Motrin Tab*) 400 mg PO Q8H PRN PRN Reason: PAIN Last Admin: 08/09/17 05:38 Dose: 400 mg Lactulose (Lactulose*) 15 ml PO DAILY [facility] Last Admin: 08/11/17 09:10 Dose: 15 ml Lisinopril (Prinivil Tab*) 5 mg PO DAILY [facility] Last Admin: 08/10/17 08:04 Dose: 5 mg Lorazepam (Ativan Tab(*)) 1 mg PO Q6H [facility] Last Admin: 08/11/17 03:24 Dose: 1 mg Magnesium Hydroxide (Milk Of Magnesia Liq*) 30 ml PO DAILY PRN PRN Reason: CONGESTION Morphine Sulfate (Morphine Inj (Syringe)*) 2 mg IV Q4H PRN PRN Reason: PAIN Last Admin: 08/10/17 03:30 Dose: 2 mg Morphine Sulfate (Morphine Oral.Soln 10 Mg*) 5 mg PO Q4H PRN PRN Reason: PAIN Omeprazole (Prilosec Cap*) 20 mg PO DAILY@0730 [facility] Last Admin: 08/11/17 09:10 Dose: 20 mg Oxybutynin Chloride (Ditropan Xl Tab*) 10 mg PO DAILY [facility] Last Admin: 08/10/17 08:03 Dose: 10 mg Paroxetine HCl (Paxil Tab*) 10 mg PO DAILY [facility] Last Admin: 08/10/17 08:03 Dose: 10 mg Sodium Biphosphate/Sodium Phosphate (Fleet Enema*) 1 bottle [place] DAILY PRN PRN Reason: CONSTIPATION Vital Signs - 8 hr 08/11/17 08/11/17 03:24 05:41 Respiratory 24 24 Rate Oxygen Devices in Use Now: None Appearance: Middle aged male sitting up in bed, being fed breakfast, NAD Eyes: No Scleral Icterus Ears/Nose/Mouth/Throat: Mucous Membranes Moist Respiratory: Symmetrical Chest Expansion and Respiratory Effort, Clear to Auscultation - anteriorly Cardiovascular: NL Sounds; No Murmurs; No JVD, RRR, No Edema Abdominal: NL Sounds; No Tenderness; No Distention Extremities: No Clubbing, Cyanosis Skin: No Nodules or Sclerosis, - - Pts R UE very rigid, he will not allow me to try to inspect the palmar surface of his R thumb, minimal erythema noted to thumb/hand and no significant swelling noted Neurological: - - awake, non-verbal Result Diagrams: 08/08/17 06:26 08/11/17 06:13 Additional Lab and Data: . Microbiology and Other Data: . Diagnostic Imaging: . Assess/Plan/Problems-Billing Mr. Sanderson is a 62 year old male, resident of [facility], who has a progressive supranuclear palsy and parkinson's disease and was admitted on with cellulitis and osteomyelitis of contracted right hand and thumb. - Patient Problems (1) Cellulitis of hand, right Current Visit: Yes Status: Acute Code(s): L03.113 - CELLULITIS OF RIGHT UPPER LIMB SNOMED Code(s): 63492525 Comment: The patient was diagnosed with cellulitis and probable osteomyelitis of the R thumb. He has received 10 days of IV abx. Will need outpatient orthopedic follow up with Dr. Moctezuma after completing 2 weeks of IV abx. Will also try to get botox injections with Dr. Flores to help release the contractures and relieve pressure which is likely contributing to his ulceration. Follow up with ID tomorrow for further guidelines for treatment. (2) Anxiety Current Visit: Yes Status: Acute Code(s): F41.9 - ANXIETY DISORDER, UNSPECIFIED SNOMED Code(s): 78221732 Comment: Continue clonazepam BID and ativan q6hr- anxiety is much improved and pt is not too sleepy. (3) HTN (hypertension) Current Visit: Yes Status: Acute Code(s): I10 - ESSENTIAL (PRIMARY) HYPERTENSION SNOMED Code(s): 47860187 Comment: BP is under acceptable control. Will continue lisinopril 5 mg daily. (4) Parkinson disease Current Visit: Yes Status: Acute Code(s): G20 - PARKINSON'S DISEASE SNOMED Code(s): 48916770 Comment: Continue sinemet. (5) PSP (progressive supranuclear palsy) Current Visit: Yes Status: Acute Code(s): G23.1 - PROGRESSIVE SUPRANUCLEAR OPHTHALMOPLEGIA SNOMED Code(s): 85873301 Comment: At baseline the patient is non-verbal 2/2 dementia. Conitnue baclofen, clonazepam and sinemet. The patient's is not interested in stopping aggressive measures. (6) DVT prophylaxis Current Visit: Yes Status: Acute Code(s): GJQ9257 - SNOMED Code(s): 413893881 Comment: SQ heparin (7) DNR (do not resuscitate) Current Visit: Yes Status: Acute Comment: Status and Disposition: .
[2017-08-11] MEDS: Acetaminophen TAB* 325 MG PO PRN (12:42)
[2017-08-11] MEDS: Morphine INJ* 2 MG/ML 1 ML SYRINGE (TWO MG - NEW SYRINGE VERSION) IV PRN (14:09)
[2017-08-12] MEDS: LORazepam TAB(*) 1 MG PO SCH ×4 (02:55→22:27)
[2017-08-12] MEDS: Heparin VIAL(*) 5000 UNITS/ML VIAL (FIVE THOUSAND) SUBCUT SCH ×3 (06:25→22:22)
[2017-08-12] MEDS: Carbidopa/Levodop 25/100 MG TAB(*) PO SCH ×4 (06:25→18:00)
[2017-08-12] MEDS: Omeprazole CAP* 20 MG PO SCH (08:01)
[2017-08-12] MEDS: Lisinopril TAB* 5 MG PO SCH (08:07)
[2017-08-12] MEDS: clonazePAM TAB(*) 1 MG PO SCH ×2 (08:07→22:26)
[2017-08-12] MEDS: Acetaminophen TAB* 325 MG PO PRN (08:07)
[2017-08-12] MEDS: PARoxetine HCL TAB* 10 MG PO SCH (08:07)
[2017-08-12] MEDS: Oxybutynin XL TAB* 5 MG PO SCH (08:07)
[2017-08-12] MEDS: Lactulose* 15 ML UDC PO SCH (08:08)
[2017-08-12] MEDS: Cefepime 2 GM in Dextrose(*) 2 GM/50 ML BAG IV SCH ×2 (08:10→22:22)
--- NOTE | 2017-08-12 09:12 | PN ---
Progress Note - Progress Note Date of Service: 08/12/17 SOAP: Subjective: CC: R hand infection HPI: 62 yo man with PSP and R medial hand erythema and thumb ulcer. No diarrhea per RN, 1-2 soft stools per day and he is eating well. Objective: Vital Signs Temp 36.6 C 08/12/17 02:28 Pulse 90 08/12/17 02:28 Resp 20 08/12/17 08:07 BP 144/63 08/12/17 02:28 Pulse Ox 100 08/12/17 02:28 Intake & Output 08/11/17 08/12/17 08/12/17 18:59 06:59 18:59 Intake Total 855 0 Balance 855 0 Intake: IVPB 55 ABX - CEFEPIME 55 Oral 800 0 Other: Estimated Void Small Large # Bowel Movements 1 1 Estimated Stool Amount Small Small # Voids 1 1 Gen:awake, no distress Neuro: regards, non verbal HEENT:PERRL, MMM Heart:RRR no murmur Lungs:CTA BL Abd:+BS NTND soft Skin: no rash MSK: R hand edema resolved; thumb and 1st finger erythema and edema Assessment: 1. 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 psoriasis 4. anxiety Plan: 1. continue cefepime Q12hrs day 06/04; then levaquin 500 mg po BID for [address] Sheldon
[2017-08-12] MEDS: Morphine INJ* 2 MG/ML 1 ML SYRINGE (TWO MG - NEW SYRINGE VERSION) IV PRN (14:28)
--- NOTE | 2017-08-12 15:15 | PN ---
Subjective Date of Service: 08/12/17 Interval History: Pt is non-verbal, seen sitting up in bed, awake. Objective Active Medications: Acetaminophen (Tylenol Tab*) 650 mg PO Q4H PRN PRN Reason: FEVER/PAIN Last Admin: 08/12/17 08:07 Dose: 650 mg Carbidopa/Levodopa (Sinemet 25/100 Tab(*)) 3 tab PO 0700,1130,1800 [facility] Last Admin: 08/12/17 12:28 Dose: 3 tab Clonazepam (Klonopin Tab(*)) 2 mg PO BID [facility] Last Admin: 08/12/17 08:07 Dose: 2 mg Glycerin (Glycerin Adult Supp*) 1 supp [place] DAILY PRN PRN Reason: CONSTIPATION Heparin Sodium (Porcine) (Heparin Vial(*)) 5,000 units SUBCUT Q8HR [facility] Last Admin: 08/12/17 14:22 Dose: 5,000 units Cefepime HCl (Maxipime 2 Gm In Dextrose Duplex (*)) 2 gm in 50 mls @ 100 mls/ hr IV Q12H [facility] Last Admin: 08/12/17 08:10 Dose: 100 mls/hr Ibuprofen (Motrin Tab*) 400 mg PO Q8H PRN PRN Reason: PAIN Last Admin: 08/09/17 05:38 Dose: 400 mg Lactulose (Lactulose*) 15 ml PO DAILY [facility] Last Admin: 08/12/17 08:08 Dose: 15 ml Lisinopril (Prinivil Tab*) 5 mg PO DAILY [facility] Last Admin: 08/12/17 08:07 Dose: 5 mg Lorazepam (Ativan Tab(*)) 1 mg PO Q6H [facility] Last Admin: 08/12/17 14:22 Dose: 1 mg Magnesium Hydroxide (Milk Of Magnesia Liq*) 30 ml PO DAILY PRN PRN Reason: CONGESTION Morphine Sulfate (Morphine Inj (Syringe)*) 2 mg IV Q4H PRN PRN Reason: PAIN Last Admin: 08/12/17 14:28 Dose: 2 mg Morphine Sulfate (Morphine Oral.Soln 10 Mg*) 5 mg PO Q4H PRN PRN Reason: PAIN Omeprazole (Prilosec Cap*) 20 mg PO DAILY@0730 [facility] Last Admin: 08/12/17 08:01 Dose: 20 mg Oxybutynin Chloride (Ditropan Xl Tab*) 10 mg PO DAILY [facility] Last Admin: 08/12/17 08:07 Dose: 10 mg Paroxetine HCl (Paxil Tab*) 10 mg PO DAILY [facility] Last Admin: 08/12/17 08:07 Dose: 10 mg Sodium Biphosphate/Sodium Phosphate (Fleet Enema*) 1 bottle [place] DAILY PRN PRN Reason: CONSTIPATION Vital Signs - 8 hr 08/12/17 08/12/17 08/12/17 07:42 08:07 14:22 Temperature 98.2 F Pulse Rate 77 Respiratory 20 20 20 Rate Blood Pressure 118/69 (mmHg) O2 Sat by Pulse 96 Oximetry 08/12/17 14:28 Temperature Pulse Rate Respiratory 20 Rate Blood Pressure (mmHg) O2 Sat by Pulse Oximetry Oxygen Devices in Use Now: None Appearance: Middle aged male sitting up in bed, NAD Eyes: No Scleral Icterus Ears/Nose/Mouth/Throat: Mucous Membranes Moist Respiratory: Symmetrical Chest Expansion and Respiratory Effort, Clear to Auscultation - anteriorly Cardiovascular: NL Sounds; No Murmurs; No JVD, RRR, No Edema Abdominal: NL Sounds; No Tenderness; No Distention Extremities: No Clubbing, Cyanosis Skin: No Nodules or Sclerosis, - - minimal erythema of R thumb, no significant swelling, the patient finally let me extend his thumb some to visualize the ulcer, slight creamy slough noted Neurological: - - awake and alert Result Diagrams: 08/08/17 06:26 08/11/17 06:13 Additional Lab and Data: . Microbiology and Other Data: . Diagnostic Imaging: . Assess/Plan/Problems-Billing Mr. Sanderson is a 62 year old male, resident of [facility], who has a progressive supranuclear palsy and parkinson's disease and was admitted on with cellulitis and osteomyelitis of contracted right hand and thumb. - Patient Problems (1) Cellulitis of hand, right Current Visit: Yes Status: Acute Code(s): L03.113 - CELLULITIS OF RIGHT UPPER LIMB SNOMED Code(s): 86360146 Comment: The patient was diagnosed with cellulitis and probable osteomyelitis of the R thumb. Today is D#11/14 of cefepime then change to levaquin x6 weeks. Will need outpatient follow up with Dr. Moctezuma to [facility] for possible thumb amputation. Follow up with Dr. Flores as outpatient for possible botox injections. (2) Anxiety Current Visit: Yes Status: Acute Code(s): F41.9 - ANXIETY DISORDER, UNSPECIFIED SNOMED Code(s): 35853988 Comment: Continue clonazepam BID and ativan q6hr- anxiety is much improved and pt is not too sleepy. (3) HTN (hypertension) Current Visit: Yes Status: Acute Code(s): I10 - ESSENTIAL (PRIMARY) HYPERTENSION SNOMED Code(s): 57343184 Comment: BP is generally under good control. (4) Parkinson disease Current Visit: Yes Status: Acute Code(s): G20 - PARKINSON'S DISEASE SNOMED Code(s): 46334655 Comment: Continue sinemet. (5) PSP (progressive supranuclear palsy) Current Visit: Yes Status: Acute Code(s): G23.1 - PROGRESSIVE SUPRANUCLEAR OPHTHALMOPLEGIA SNOMED Code(s): 57753977 Comment: At baseline the patient is non-verbal 2/2 dementia. Conitnue baclofen, clonazepam and sinemet. The patient's is not interested in stopping aggressive measures. (6) DVT prophylaxis Current Visit: Yes Status: Acute Code(s): KAQ1753 - SNOMED Code(s): 852770416 Comment: SQ heparin (7) DNR (do not resuscitate) Current Visit: Yes Status: Acute Comment: Status and Disposition: .
[2017-08-13] MEDS: LORazepam TAB(*) 1 MG PO SCH ×2 (03:18→08:40)
[2017-08-13] MEDS: Heparin VIAL(*) 5000 UNITS/ML VIAL (FIVE THOUSAND) SUBCUT SCH ×3 (05:28→20:11)
[2017-08-13 05:54] LABS: Hematocrit 40 % (42-52); Hemoglobin 13.7 g/dl (14.0-18.0); Mean Corpuscular HGB Conc 34 g/dl (31-36); Mean Corpuscular Hemoglobin 33 pg (27-31); Mean Corpuscular Volume 94 fL (80-94); Mean Platelet Volume 9 um3 (7.4-10.4); Platelet Count 196 10^3/ul (150-450); Red Blood Count 4.22 10^6/ul (4.0-5.4); Red Cell Distribution Width 13 % (10.5-15); White Blood Count 6.5 10^3/ul (3.5-10.8)
[2017-08-13 06:10] LABS: EGFR Non-African American 114.3 (>60)
[2017-08-13] MEDS: Oxybutynin XL TAB* 5 MG PO SCH (08:39)
[2017-08-13] MEDS: PARoxetine HCL TAB* 10 MG PO SCH (08:39)
[2017-08-13] MEDS: Omeprazole CAP* 20 MG PO SCH (08:39)
[2017-08-13] MEDS: clonazePAM TAB(*) 1 MG PO SCH ×3 (08:39→22:37)
[2017-08-13] MEDS: Carbidopa/Levodop 25/100 MG TAB(*) PO SCH ×3 (08:39→18:03)
[2017-08-13] MEDS: Lisinopril TAB* 5 MG PO SCH (08:40)
[2017-08-13] MEDS: Lactulose* 15 ML UDC PO SCH (08:40)
[2017-08-13] MEDS: Cefepime 2 GM in Dextrose(*) 2 GM/50 ML BAG IV SCH ×2 (10:52→20:11)
[2017-08-13] MEDS ORDERED: LORazepam TAB(*) 1 MG PO SCH (14:00)
--- NOTE | 2017-08-13 14:33 | PN ---
Subjective Date of Service: 08/13/17 Interval History: Pt has noted to be more sleepy yesterday evening and today. He also has not been eating as much as he usually does. Objective Active Medications: Acetaminophen (Tylenol Tab*) 650 mg PO Q4H PRN PRN Reason: FEVER/PAIN Last Admin: 08/12/17 08:07 Dose: 650 mg Carbidopa/Levodopa (Sinemet 25/100 Tab(*)) 3 tab PO 0700,1130,1800 [facility] Last Admin: 08/13/17 11:30 Dose: 3 tab Clonazepam (Klonopin Tab(*)) 2 mg PO BID [facility] Last Admin: 08/13/17 08:39 Dose: 2 mg Glycerin (Glycerin Adult Supp*) 1 supp [place] DAILY PRN PRN Reason: CONSTIPATION Heparin Sodium (Porcine) (Heparin Vial(*)) 5,000 units SUBCUT Q8HR [facility] Last Admin: 08/13/17 13:23 Dose: 5,000 units Cefepime HCl (Maxipime 2 Gm In Dextrose Duplex (*)) 2 gm in 50 mls @ 100 mls/ hr IV Q12H [facility] Last Admin: 08/13/17 10:52 Dose: 100 mls/hr Ibuprofen (Motrin Tab*) 400 mg PO Q8H PRN PRN Reason: PAIN Last Admin: 08/09/17 05:38 Dose: 400 mg Lactulose (Lactulose*) 15 ml PO DAILY [facility] Last Admin: 08/13/17 08:40 Dose: 15 ml Lisinopril (Prinivil Tab*) 5 mg PO DAILY [facility] Last Admin: 08/13/17 08:40 Dose: 5 mg Magnesium Hydroxide (Milk Of Magnesia Liq*) 30 ml PO DAILY PRN PRN Reason: CONGESTION Morphine Sulfate (Morphine Inj (Syringe)*) 2 mg IV Q4H PRN PRN Reason: PAIN Last Admin: 08/12/17 14:28 Dose: 2 mg Morphine Sulfate (Morphine Oral.Soln 10 Mg*) 5 mg PO Q4H PRN PRN Reason: PAIN Omeprazole (Prilosec Cap*) 20 mg PO DAILY@0730 [facility] Last Admin: 08/13/17 08:39 Dose: 20 mg Oxybutynin Chloride (Ditropan Xl Tab*) 10 mg PO DAILY [facility] Last Admin: 08/13/17 08:39 Dose: 10 mg Paroxetine HCl (Paxil Tab*) 10 mg PO DAILY [facility] Last Admin: 08/13/17 08:39 Dose: 10 mg Sodium Biphosphate/Sodium Phosphate (Fleet Enema*) 1 bottle [place] DAILY PRN PRN Reason: CONSTIPATION Vital Signs - 8 hr 08/13/17 08/13/17 08/13/17 07:48 08:39 08:40 Pulse Rate 65 Respiratory 16 20 20 Rate Blood Pressure 105/57 (mmHg) O2 Sat by Pulse 97 Oximetry 08/13/17 08/13/17 08/13/17 08:55 11:06 13:32 Pulse Rate Respiratory 20 20 18 Rate Blood Pressure (mmHg) O2 Sat by Pulse Oximetry Oxygen Devices in Use Now: None Appearance: Middle aged male lying in bed, eyes open, NAD Eyes: No Scleral Icterus Ears/Nose/Mouth/Throat: Mucous Membranes Moist Respiratory: Symmetrical Chest Expansion and Respiratory Effort, Clear to Auscultation Cardiovascular: NL Sounds; No Murmurs; No JVD, RRR, No Edema Abdominal: NL Sounds; No Tenderness; No Distention Extremities: - - R hand contracture Skin: - - no significant change to R hand/thumb findings Neurological: - - alert, resists me trying to inspect his R hand Result Diagrams: 08/13/17 05:33 08/13/17 05:33 Additional Lab and Data: . Microbiology and Other Data: . Diagnostic Imaging: . Assess/Plan/Problems-Billing Mr. Sanderson is a 62 year old male, resident of [facility], who has a progressive supranuclear palsy and parkinson's disease and was admitted on with cellulitis and osteomyelitis of contracted right hand and thumb. - Patient Problems (1) Cellulitis of hand, right Current Visit: Yes Status: Acute Code(s): L03.113 - CELLULITIS OF RIGHT UPPER LIMB SNOMED Code(s): 52731080 Comment: Today is D#12/14 of cefepime then change to levaquin x6 weeks. Will need outpatient follow up with Dr. Moctezuma to [facility] for possible thumb amputation. Follow up with Dr. Flores as outpatient for possible botox injections to help reduce the contractures and pressure on his joints/hand. (2) Anxiety Current Visit: Yes Status: Acute Code(s): F41.9 - ANXIETY DISORDER, UNSPECIFIED SNOMED Code(s): 83043320 Comment: Continue clonazepam BID. Stop ativan for now as he has been more sleepy and not eating as well. (3) HTN (hypertension) Current Visit: Yes Status: Acute Code(s): I10 - ESSENTIAL (PRIMARY) HYPERTENSION SNOMED Code(s): 69850026 Comment: Under good control. (4) Parkinson disease Current Visit: Yes Status: Acute Code(s): G20 - PARKINSON'S DISEASE SNOMED Code(s): 17573608 Comment: Continue sinemet. (5) PSP (progressive supranuclear palsy) Current Visit: Yes Status: Acute Code(s): G23.1 - PROGRESSIVE SUPRANUCLEAR OPHTHALMOPLEGIA SNOMED Code(s): 18309266 Comment: At baseline the patient is non-verbal 2/2 dementia. Conitnue baclofen, clonazepam and sinemet. The patient's is not interested in stopping aggressive measures. (6) DVT prophylaxis Current Visit: Yes Status: Acute Code(s): JKF2266 - SNOMED Code(s): 632640759 Comment: SQ heparin (7) DNR (do not resuscitate) Current Visit: Yes Status: Acute Comment: Status and Disposition: .
[2017-08-14] MEDS: Heparin VIAL(*) 5000 UNITS/ML VIAL (FIVE THOUSAND) SUBCUT SCH ×3 (05:48→22:07)
[2017-08-14] MEDS: Omeprazole CAP* 20 MG PO SCH (07:28)
[2017-08-14] MEDS: Carbidopa/Levodop 25/100 MG TAB(*) PO SCH ×3 (07:28→18:35)
[2017-08-14] MEDS: Lactulose* 15 ML UDC PO SCH (09:53)
[2017-08-14] MEDS: Cefepime 2 GM in Dextrose(*) 2 GM/50 ML BAG IV SCH ×2 (09:53→22:08)
[2017-08-14] MEDS: clonazePAM TAB(*) 1 MG PO SCH ×2 (09:54→22:07)
[2017-08-14] MEDS: Oxybutynin XL TAB* 5 MG PO SCH (09:54)
[2017-08-14] MEDS: PARoxetine HCL TAB* 10 MG PO SCH (09:56)
[2017-08-14] MEDS: Lisinopril TAB* 5 MG PO SCH (09:56)
--- NOTE | 2017-08-14 17:32 | PN ---
Subjective Date of Service: 08/14/17 Interval History: Pt is non-verbal. Objective Active Medications: Acetaminophen (Tylenol Tab*) 650 mg PO Q4H PRN PRN Reason: FEVER/PAIN Last Admin: 08/12/17 08:07 Dose: 650 mg Carbidopa/Levodopa (Sinemet 25/100 Tab(*)) 3 tab PO 0700,1130,1800 [facility] Last Admin: 08/14/17 11:52 Dose: 3 tab Clonazepam (Klonopin Tab(*)) 2 mg PO BID [facility] Last Admin: 08/14/17 09:54 Dose: 2 mg Glycerin (Glycerin Adult Supp*) 1 supp [place] DAILY PRN PRN Reason: CONSTIPATION Heparin Sodium (Porcine) (Heparin Vial(*)) 5,000 units SUBCUT Q8HR [facility] Last Admin: 08/14/17 14:59 Dose: 5,000 units Cefepime HCl (Maxipime 2 Gm In Dextrose Duplex (*)) 2 gm in 50 mls @ 100 mls/ hr IV Q12H [facility] Last Admin: 08/14/17 09:53 Dose: 100 mls/hr Ibuprofen (Motrin Tab*) 400 mg PO Q8H PRN PRN Reason: PAIN Last Admin: 08/09/17 05:38 Dose: 400 mg Lactulose (Lactulose*) 15 ml PO DAILY [facility] Last Admin: 08/14/17 09:53 Dose: 15 ml Lisinopril (Prinivil Tab*) 5 mg PO DAILY [facility] Last Admin: 08/14/17 09:56 Dose: 5 mg Magnesium Hydroxide (Milk Of Magnesia Liq*) 30 ml PO DAILY PRN PRN Reason: CONGESTION Morphine Sulfate (Morphine Inj (Syringe)*) 2 mg IV Q4H PRN PRN Reason: PAIN Last Admin: 08/12/17 14:28 Dose: 2 mg Morphine Sulfate (Morphine Oral.Soln 10 Mg*) 5 mg PO Q4H PRN PRN Reason: PAIN Omeprazole (Prilosec Cap*) 20 mg PO DAILY@0730 [facility] Last Admin: 08/14/17 07:28 Dose: 20 mg Oxybutynin Chloride (Ditropan Xl Tab*) 10 mg PO DAILY [facility] Last Admin: 08/14/17 09:54 Dose: 10 mg Paroxetine HCl (Paxil Tab*) 10 mg PO DAILY [facility] Last Admin: 08/14/17 09:56 Dose: 10 mg Sodium Biphosphate/Sodium Phosphate (Fleet Enema*) 1 bottle [place] DAILY PRN PRN Reason: CONSTIPATION Vital Signs - 8 hr 08/14/17 08/14/17 08/14/17 09:54 11:54 14:11 Pulse Rate 82 Respiratory 20 16 16 Rate Blood Pressure 117/71 (mmHg) O2 Sat by Pulse 93 Oximetry Oxygen Devices in Use Now: None Appearance: Middle aged male lying in bed, tense, NAD Eyes: No Scleral Icterus Ears/Nose/Mouth/Throat: Mucous Membranes Moist Respiratory: Symmetrical Chest Expansion and Respiratory Effort, Clear to Auscultation - anteriorly Cardiovascular: NL Sounds; No Murmurs; No JVD, RRR, No Edema Abdominal: NL Sounds; No Tenderness; No Distention Extremities: No Clubbing, Cyanosis Skin: No Nodules or Sclerosis, - - pt will not relax enough for me to inspect the thumb ulcer, no erythema or swelling noted Result Diagrams: 08/13/17 05:33 08/13/17 05:33 Additional Lab and Data: . Microbiology and Other Data: . Diagnostic Imaging: . Assess/Plan/Problems-Billing Mr. Sanderson is a 62 year old male, resident of [facility], who has a progressive supranuclear palsy and parkinson's disease and was admitted on with cellulitis and osteomyelitis of contracted right hand and thumb. - Patient Problems (1) Cellulitis of hand, right Current Visit: Yes Status: Acute Code(s): L03.113 - CELLULITIS OF RIGHT UPPER LIMB SNOMED Code(s): 33618126 Comment: Today is D#13/14 of cefepime then change to levaquin 500mg daily x6 weeks. Will need outpatient follow up with Dr. Moctezuma to [place] for possible thumb amputation. Follow up with Dr. Flores as outpatient for possible botox injections to help reduce the contractures and pressure on his joints/hand. (2) Anxiety Current Visit: Yes Status: Acute Code(s): F41.9 - ANXIETY DISORDER, UNSPECIFIED SNOMED Code(s): 85426994 Comment: Continue clonazepam BID. As pt is more rigid today will start ativan 1mg at 1400. (3) HTN (hypertension) Current Visit: Yes Status: Acute Code(s): I10 - ESSENTIAL (PRIMARY) HYPERTENSION SNOMED Code(s): 51482017 Comment: Under good control. (4) Parkinson disease Current Visit: Yes Status: Acute Code(s): G20 - PARKINSON'S DISEASE SNOMED Code(s): 52025100 Comment: Continue sinemet. (5) PSP (progressive supranuclear palsy) Current Visit: Yes Status: Acute Code(s): G23.1 - PROGRESSIVE SUPRANUCLEAR OPHTHALMOPLEGIA SNOMED Code(s): 40989715 Comment: At baseline the patient is non-verbal 2/2 dementia. Conitnue baclofen, clonazepam and sinemet. The patient's is not interested in stopping aggressive measures. (6) DVT prophylaxis Current Visit: Yes Status: Acute Code(s): GEY7259 - SNOMED Code(s): 501855150 Comment: SQ heparin (7) DNR (do not resuscitate) Current Visit: Yes Status: Acute Comment: Status and Disposition: .
[2017-08-15] MEDS: Carbidopa/Levodop 25/100 MG TAB(*) PO SCH ×3 (05:56→18:19)
[2017-08-15] MEDS: Heparin VIAL(*) 5000 UNITS/ML VIAL (FIVE THOUSAND) SUBCUT SCH ×3 (05:56→22:12)
[2017-08-15] MEDS: Omeprazole CAP* 20 MG PO SCH (05:56)
[2017-08-15] MEDS: Lactulose* 15 ML UDC PO SCH (10:09)
[2017-08-15] MEDS: Cefepime 2 GM in Dextrose(*) 2 GM/50 ML BAG IV SCH ×2 (10:09→22:08)
[2017-08-15] MEDS: Oxybutynin XL TAB* 5 MG PO SCH (10:09)
[2017-08-15] MEDS: Lisinopril TAB* 5 MG PO SCH (10:10)
[2017-08-15] MEDS: PARoxetine HCL TAB* 10 MG PO SCH (10:10)
[2017-08-15] MEDS: clonazePAM TAB(*) 1 MG PO SCH ×2 (10:10→22:15)
--- NOTE | 2017-08-15 12:41 | DS ---
CC: [facility]; Dr. Bay; Dr. Moctezuma; Dr. Lara; Dr. Flores * DATE OF ADMISSION: 08/01/2017. DATE OF DISCHARGE: 08/16/2017. PRIMARY CARE PHYSICIAN: [facility]. PRINCIPAL DIAGNOSIS: Right hand and thumb cellulitis with right thumb osteomyelitis secondary to chronic ulceration. SECONDARY DIAGNOSES: 1. Parkinson's disease/progressive supranuclear palsy. 2. Dementia. 3. Hypertension. 4. Psoriasis. 5. Insomnia. 6. Anxiety. DISCHARGE MEDICATIONS: 1. Mometasone Furoate apply topically twice daily. 2. Ketoconazole cream apply topically twice daily. 3. Tylenol 650 mg p.o. q.4 hours prn pain. 4. Fleet enema one enema p.r. daily prn constipation. 5. Milk of Magnesia 30 ml p.o. daily prn constipation. 6. Glycerin suppository one suppository p.r. daily prn constipation. 7. Ambien CR 12.5 mg p.o. at bedtime prn insomnia. 8. Advil PM two tabs p.o. at bedtime. 9. Ibuprofen 400 mg p.o. q.8 hours prn pain. 10. Paxil 10 mg p.o. daily. 11. Sinemet 25/100 three tabs p.o. at 0700, 1130, and 1800. 12. Protonix 40 mg p.o. daily. 13. Oxybutynin XL 10 mg p.o. daily. 14. Lactulose 15 ml p.o. daily. 15. Clonazepam 2 mg p.o. b.i.d. (new). 16. Morphine oral solution 5 mg p.o. q.4 hours prn pain (new). 17. Lisinopril 5 mg p.o. daily (new). 18. Levofloxacin 500 mg p.o. daily times 28 days. 19. Ativan 1 mg p.o. at 1400 prn anxiety (new frequency). HOSPITAL COURSE: Mr. Sanderson is a 62-year-old male who was brought to the emergency room from [facility] on 08/01/2017 with complaint of right hand infection. The patient had been treated with two 10 day courses of Clindamycin for presumed right hand cellulitis. In the emergency room he underwent an x-ray of the right hand which did not reveal any acute bony deformities; however, it was felt to be a poor quality x-ray due to the patient' s hand contractures. Significant erythema of the thumb, pointer and middle fingers were noted. The patient was admitted for IV antibiotic therapy. The patient ultimately was seen by both Orthopedics and Infectious Disease. There was a question whether or not the patient would benefit from a thumb amputation as he does not utilize that hand to treat the infection; however, Dr. Bay is considered that amputating the thumb will leave a wound at the base where the thumb would ordinarily be that would not heal. The decision was made to treat the patient with two weeks of IV antibiotics (he received Cefepime), then four weeks of Levaquin 500 mg daily. The patient will follow-up with Dr. Moctezuma on 08/19/2017 at 9:45 a.m. to re-discuss any surgical treatment if any. The patient and his also met briefly with Dr. Camargo from Palliative Care. The patient's was not interested in a palliative approach at this point. During the course of the patient's hospitalization, anxiety was clearly an issue. The patient was started on Clonazepam 2 mg twice daily as well as standing Ativan four times a day. The patient did very well with this regimen; however, it became clear that he was getting too sleepy and therefore the Ativan was decreased to once daily at 1400. The patient's level of alertness has improved with this. If anxiety continues to be problematic, a second dose of Ativan could be added to split the morning and nighttime doses of Clonazepam. A referral has been made to Dr. Flores for consideration of Botox injections due to his severe hand contractures. An appointment has been scheduled for 01/2018 at 9:00 a.m. The patient has been placed on the cancellation list and I did give the patient's 's phone number and name to contact her if there is a cancellation as the patient lives at [facility]. Overall, the patient's infection appears much improved. The patient is eating and drinking well. He is not having any issues with bowel movements. Again, he did get sleepy during his hospitalization; however, his level of alertness is much improved over the last two days of his hospitalization. The patient will need a CBC, CMP and CRP weekly while on the Levaquin. This will start on 08/19/2017. The patient will need to follow-up with Dr. Bay on 09/05/2017 at 1:20 p.m. On the day of discharge, the patient is awake and alert, sitting up in bed, appearing to be in no acute distress. Cardiac exam reveals a normal S1 and S2 with a regular rate and rhythm. His lungs are clear anteriorly. His abdomen is soft, nontender and nondistended, and bowel sounds are present. The patient does resist me trying to look at his thumb that is currently dressed in a gauze dressing. The visible portion of the thumb that I can see has no significant erythema or swelling noted. I am unable to evaluate the ulceration on the palmar surface of the thumb. FOLLOW-UP CONCERNS: The patient is being discharged to [facility] today, 08/15/2017. ACTIVITY LEVEL: As tolerated. DIET: Regular. CONDITION ON DISCHARGE: Stable. Forty minutes were spent arranging this discharge, including making follow-up appointments. [id number]/[facility] #: [id number] AIYANA
[2017-08-15] MEDS ORDERED: Morphine INJ* 2 MG/ML 1 ML CARPUJECT IV PRN (13:00)
[2017-08-15] MEDS ORDERED: LORazepam TAB(*) 1 MG PO SCH (14:00)
[2017-08-16] MEDS: Carbidopa/Levodop 25/100 MG TAB(*) PO SCH ×2 (05:27→11:15)
[2017-08-16] MEDS: Heparin VIAL(*) 5000 UNITS/ML VIAL (FIVE THOUSAND) SUBCUT SCH (05:28)
[2017-08-16] MEDS: Omeprazole CAP* 20 MG PO SCH (05:33)
[2017-08-16] MEDS: Lactulose* 15 ML UDC PO SCH (08:21)
[2017-08-16] MEDS: Oxybutynin XL TAB* 5 MG PO SCH (08:21)
[2017-08-16] MEDS: Cefepime 2 GM in Dextrose(*) 2 GM/50 ML BAG IV SCH (08:21)
[2017-08-16] MEDS: clonazePAM TAB(*) 1 MG PO SCH (08:22)
[2017-08-16] MEDS: PARoxetine HCL TAB* 10 MG PO SCH (08:22)
[2017-08-16 08:23] VITALS: BP 101/58
[2017-08-16] MEDS: Lisinopril TAB* 5 MG PO SCH (08:23)
== END 2017-08-16 13:50 | DRG 344 ==
LOC: ED 13:12 → MED 18:07
PROVIDERS: ADMIT Internal Medicine; ATTEND Hospitalist
DX: M86.641 Other chronic osteomyelitis, right hand (principal); G23.1 Progressive supranuclear ophthalmoplegia [Steele-Richardson-Olszewski]; G20 Parkinson's disease; L40.9 Psoriasis, unspecified; I10 Essential (primary) hypertension; G47.00 Insomnia, unspecified; F41.9 Anxiety disorder, unspecified; F02.80 Dementia in other diseases classified elsewhere, unspecified severity, without behavioral disturbance, psychotic disturbance, mood disturbance, and anxiety; L03.011 Cellulitis of right finger; F32.9 Major depressive disorder, single episode, unspecified; Z66 Do not resuscitate; M20.091 Other deformity of right finger(s); Z96.649 Presence of unspecified artificial hip joint; R45.1 Restlessness and agitation; K59.09 Other constipation; L98.499 Non-pressure chronic ulcer of skin of other sites with unspecified severity; Z74.01 Bed confinement status; Z88.2 Allergy status to sulfonamides; Z56.0 Unemployment, unspecified; Z87.891 Personal history of nicotine dependence; Z72.89 Other problems related to lifestyle
CPT/HCPCS: 36415; 80048; 80053; 80202; 83605; 83735; 85025; 85027; 85610; 85652; 86140; 87040; 87070; 87077; 87186; 87205; 87640; 87641; 90732; 96374; 96375; 99284; A9270-GY; J0692; J1644; J2060; J2270; J3370; Q9967

== ENCOUNTER 2017-11-22 15:00 | Inpatient (IN) | payer BC, MEDICAID ==
[2017-11-22] MEDS ORDERED: Piperacillin/Tazobac ADVAN(*) 3.375 GM in NS 0.9% 100 ML* 100 ML IVPB ONE (15:32)
[2017-11-22 16:28] LABS: ABS Basophils 0.1 10^3/ul (0-0.2); ABS Eosinophils 0.1 10^3/ul (0-0.6); ABS Lymphocytes 1.3 10^3/ul (1.0-4.8); ABS Monocytes 1.1 10^3/ul (0-0.8); ABS Neutrophils 4.9 10^3/ul (1.5-7.7); ABS Nucleated RBC 0 10^3/ul; Eosinophil % 0.9 % (0-6); Hematocrit 36 % (42-52); Hemoglobin 12.4 g/dl (14.0-18.0); Lymphocyte % 17.3 % (25-47); Mean Corpuscular HGB Conc 34 g/dl (31-36); Mean Corpuscular Hemoglobin 31 pg (27-31); Mean Corpuscular Volume 92 fL (80-94); Mean Platelet Volume 8.2 um3 (7.4-10.4); Nucleated Red Blood Cells % 0; Platelet Count 201 10^3/ul (150-450); Red Blood Count 3.95 10^6/ul (4.0-5.4); Red Cell Distribution Width 13 % (10.5-15); White Blood Count 7.3 10^3/ul (3.5-10.8)
[2017-11-22 16:41] LABS: INR 1.06 (0.77-1.02)
--- NOTE | 2017-11-22 17:23 | ED ---
Faustina Estrada Gabriel, scribed for Sanket Man MD on 11/22/17 at 1531 . Skin Complaint - HPI Summary HPI Summary: This patient is a 62 year old M BIBA to [facility] accompanied by his with a chief complaint of an rectal infection that is worse. [facility] after the nurses were concerned for an infection. Diagnosed with Parkinsons 3 years ago and is non verbal. LEVEL 5 CAVEAT exam limited due to the patient being nonverbal - History of Current Complaint Chief Complaint: EDGeneral Time Seen by Provider: 11/22/17 15:17 Stated Complaint: INFECTION/SENT BY WOUND CLINIC Hx Obtained From: Family/Hoof And Shoe Inspector - Hx From Patient Unobtainable Due To: Other Onset/Duration: Still Present Onset Severity: Moderate Current Severity: Moderate Pain Intensity: 0 Pain Scale Used: Adult Non Verbal - Additional Pertinent History Primary Care Physician: [id number] - Allergy/Home Medications Allergies/Adverse Reactions: Allergies Allergy/AdvReac Type Severity Reaction Status Date / Time Sulfa (Sulfonamide Allergy Rash Verified 11/22/17 16:35 Antibiotics) Home Medications: Home Medications Acetaminophen TAB* [Tylenol TAB*] 650 mg PO Q4H PRN 11/22/17 [History Confirmed 11/22/17] Baclofen TAB* [Lioresal TAB*] 20 mg PO BID 11/22/17 [History Confirmed 11/22/17 ] Calcium Alginate [Calcium Alginate] 1 pow TOPICAL DAILY 11/22/17 [History Confirmed 11/22/17] Carbidopa/Levodopa [Carbidopa-Levodopa 25-100 Tab] 3 tab PO TID 11/22/17 [ History Confirmed 11/22/17] Dextran 70/Hypromellose [Natures Tears 0.1-0.3 %] 1 drop BOTH EYES QID 11/22/17 [History Confirmed 11/22/17] Glycerin ADULT SUPP* 1 supp RI DAILY PRN 11/22/17 [History Confirmed 11/22/17] Ibuprofen TAB* [Advil TAB*] 400 mg PO TID PRN 11/22/17 [History Confirmed ] Ibuprofen/Diphenhydramine Cit [Advil Pm Caplet] 2 each PO BEDTIME PRN 11/22/17 [ History Confirmed 11/22/17] Ketoconazole 2 % CREAM (NF) [Nizoral 2% CREAM (NF)] 1 applic TOPICAL BID [History Confirmed 11/22/17] LORazepam TAB(*) [Ativan 1 MG TAB (*)] 1 mg PO QPM 11/22/17 [History Confirmed 11/22/17] Lactulose* 15 ml PO DAILY 11/22/17 [History Confirmed 11/22/17] Lisinopril TAB* [Prinivil TAB*] 5 mg PO DAILY 11/22/17 [History Confirmed ] Magnesium Hydroxide LIQ* [Milk of Magnesia LIQ*] 30 ml PO Q72H PRN 11/22/17 [ History Confirmed 11/22/17] Mometasone Furoate 0.1 % TOPICAL BID 11/22/17 [History Confirmed 11/22/17] Morphine ORAL CONCENTRATE* 0.25 ml PO Q4H PRN 11/22/17 [History Confirmed ] Morphine TAB Extended Rel(*) [Ms Contin(*)] 15 mg PO BID PRN 11/22/17 [History Confirmed 11/22/17] Multivitamins/Minerals TAB* [Theragran/minerals TAB*] 1 tab PO DAILY 11/22/17 [ History Confirmed 11/22/17] Omeprazole CAP* [Prilosec CAP* 20 MG] 20 mg PO QAM 11/22/17 [History Confirmed 11/22/17] Oxybutynin XL TAB* [Ditropan XL TAB*] 10 mg PO DAILY 11/22/17 [History Confirmed 11/22/17] PARoxetine HCL TAB* [Paxil TAB*] 10 mg PO DAILY 11/22/17 [History Confirmed 11/06] Zolpidem Tartrate [Zolpidem Tartrate ER] 12.5 mg PO BEDTIME 11/22/17 [History Confirmed 11/22/17] clonazePAM TAB(*) [KlonoPIN TAB(*)] 2 mg PO BID 11/22/17 [History Confirmed 11/06] PMH/Surg Hx/FS Hx/Imm Hx Endocrine/Hematology History: Reports: Other Endocrine/Hematological Disorders - Psoriasis Denies: Hx Diabetes Cardiovascular History: Reports: Hx Hypertension Denies: Hx Pacemaker/ICD History: Denies: Hx Renal Disease Musculoskeletal History: Reports: Other Musculoskeletal History - Right hand contracture Sensory History: Denies: Hx Contacts or Glasses, Hx Hearing Aid Opthamlomology History: Denies: Hx Contacts or Glasses Neurological History: Reports: Hx Dementia, Other Neuro Impairments/Disorders - Progressive Supranuclear Palsy Psychiatric History: Reports: Hx Anxiety Denies: Hx Panic Disorder - Surgical History Surgery Procedure, Year, and Place: hip replacment 2013. 3 laproscopic knee surgeries Infectious Disease History: No Infectious Disease History: Denies: Hx of Known/Suspected MRSA, Traveled Outside the [place] in Last 30 Days - Social History Alcohol Use: Unknown Hx Substance Use: Yes Substance Use Type: Reports: Prescribed Hx Tobacco Use: Yes Smoking Status (MU): Former Smoker Review of Systems - ROS Summary Review of Systems Summary: LEVEL 5 CAVEAT ROS limited due to the patient being nonverbal Positive: Fever Positive: Other - ulcer on buttock All Other Systems Reviewed And Are Negative: No Physical Exam - Summary Physical Exam Summary: Appearance: Well appearing, no pain distress Skin: scars on the left thigh, heels are unloaded, there is erythema of the buttocks with a 5x5cm sacral decubitus ulcer that is 3-4cm deep, there is ortiz/ brown drainage and a foul odor Head/face: normal Eyes: EOMI, SWATI ENT: normal Neck: supple, non-tender Respiratory: CTA, breath sounds present Cardiovascular: RRR, pulses symmetrical Abdomen: non-tender, soft Bowel Sounds: present Musculoskeletal: has tremors, contractured upper and lower extremities with rigidity. Chronic LE edema Neuro: normal, sensory motor intact, A&Ox3 Triage Information Reviewed: Yes Vital Signs On Initial Exam: Initial Vitals Temp Pulse Resp BP Pulse Ox 99.7 F 61 17 124/79 96 11/22/17 15:09 11/22/17 15:09 11/22/17 15:09 11/22/17 15:09 11/22/17 15:09 Vital Signs Reviewed: Yes Completion Of Physical Exam Limited Due To: Level 5 Diagnostics - Vital Signs Vital Signs Temp Pulse Resp BP Pulse Ox 11/22/17 15:10 89 20 96 11/22/17 15:09 99.7 F 89 36 124/79 95 - Laboratory Lab Results: Lab Results 11/22/17 11/22/17 11/22/17 Range/Units 16:20 16:20 16:20 WBC 7.3 (3.5-10.8) 10^3/ul RBC 3.95 L (4.0-5.4) 10^6/ul Hgb 12.4 L (14.0-18.0) g/dl Hct 36 L (42-52) % MCV 92 (80-94) fL MCH 31 (27-31) pg MCHC 34 (31-36) g/dl RDW 13 (10.5-15) % Plt Count 201 (150-450) 10^3/ul MPV 8.2 (7.4-10.4) um3 Neut % (Auto) 66.3 (38-83) % Lymph % (Auto) 17.3 L (25-47) % Green % (Auto) 14.6 H (0-7) % Eos % (Auto) 0.9 (0-6) % Baso % (Auto) 0.9 (0-2) % Absolute Neuts (auto) 4.9 (1.5-7.7) 10^3/ul Absolute Lymphs (auto) 1.3 (1.0-4.8) 10^3/ul Absolute Monos (auto) 1.1 H (0-0.8) 10^3/ul Absolute Eos (auto) 0.1 (0-0.6) 10^3/ul Absolute Basos (auto) 0.1 (0-0.2) 10^3/ul Absolute Nucleated RBC 0 10^3/ul Nucleated RBC % 0 INR (Anticoag Therapy) 1.06 H (0.77-1.02) APTT 32.0 (26.0-36.3) seconds Sodium 136 L (139-145) mmol/L Potassium 4.1 (3.5-5.0) mmol/L Chloride 101 (101-111) mmol/L Carbon Dioxide 26 (22-32) mmol/L Anion Gap 9 (2-11) mmol/L BUN 22 (6-24) mg/dL Creatinine 0.58 L (0.67-1.17) mg/dL Est GFR ( Amer) 182.6 (>60) Est GFR (Non-Af Amer) 142.0 (>60) BUN/Creatinine Ratio 37.9 H (8-20) Glucose 118 H (70-100) mg/dL Calcium 9.2 (8.6-10.3) mg/dL C-Reactive Protein 129.11 H (< 5.00) mg/L Result Diagrams: 11/22/17 16:20 11/22/17 16:20 Lab Statement: Any lab studies that have been ordered have been reviewed, and results considered in the medical decision making process. Course/Dx - Course Course Of Treatment: Patient cannot contribute at all to history. He has severe contractures and is nonverbal. He has extensive sacral decubitus ulcer now stage IV or above. There is a austin eschar/exudate in the wound. IV antibiotics were started, surgery was consulted and he will be admitted to the hospitalist service. I did pack the wound with Betadine gauze after irrigating it and cleaning it with peroxide. - Differential Diagnoses - Skin Complaint Differential Diagnoses: Other - Wound infection, sepsis, osteomyelitis - Diagnoses Provider Diagnoses: Stage 4 decubitus ulcer, PSP (progressive supranuclear palsy), DNR (do not resuscitate), Decubitus ulcer, stage 4 with infection - Physician Notifications Discussed Care Of Patient With: Bakari Bonilla - also discussed with Dr. Lynn from surgery who will see as inpt. Time Discussed With Above Provider: 15:43 Instructed by Provider To: Admit As Inpatient - We also discussed patient care with Dr. Lynn and he has agreed to come consult on the patient. Discharge - Sign-Out/Discharge Documenting (check all that apply): Discharge/Admit/Transfer - admitted - Discharge Plan Condition: Fair Disposition: ADMITTED TO [facility] Referrals: Sofi Lara MD [Primary Care Provider] - - Billing Disposition and Condition Condition: FAIR Disposition: HOSP-[facility] [place] The documentation as recorded by the Faustina del real Gabriel accurately reflects the service I personally performed and the decisions made by me, Sanket Man MD.
[2017-11-22] MEDS ORDERED: Ondansetron ODT TAB* 4 MG SL PRN (17:27)
[2017-11-22] MEDS ORDERED: Glycerin ADULT SUPP PR PRN (17:29)
[2017-11-22] MEDS ORDERED: Magnesium Hydroxide LIQ* 30 ML UDC PO PRN (17:29)
[2017-11-22] MEDS ORDERED: Ibuprofen TAB* 200 MG PO PRN (17:29)
[2017-11-22] MEDS ORDERED: Vancomycin(*) 1,250 MG in NS 0.9% 250 ML* 250 ML IVPB STA (17:30)
[2017-11-22] MEDS ORDERED: LORazepam TAB(*) 0.5 MG PO PRN (17:31)
[2017-11-22] MEDS ORDERED: Iohexol 300* (CONTRAST) 10 ML SDV IV ONE (17:33)
[2017-11-22] MEDS ORDERED: Zolpidem TAB* 10 MG PO PRN (17:37)
[2017-11-22] MEDS ORDERED: Artificial Tears* 15 ML BTL BOTH EYES PRN (18:04)
[2017-11-22] MEDS ORDERED: Artificial Tear OPHTH.OINT* 3.5 GM BOTH EYES PRN (18:05)
--- NOTE | 2017-11-22 18:18 | RAD ---
HISTORY: Infection, evaluate for sacral osteomyelitis COMPARISONS: CT dated April 05, 2011 TECHNIQUE: Multiple contiguous axial CT images are obtained of the pelvis, with coronal and sagittal multiplanar reconstructions, with intravenous contrast administration. FINDINGS: BONE DENSITY: Normal. BONES: There is no displaced fracture. The patient is status post right hip arthroplasty. While there is no appreciable erosion or periosteal reaction, a sacral diffuse ulcer extends to the last 2 coccygeal vertebral bodies. Bilateral pars defects are noted at L5. JOINTS: There is facet osteoarthritis. There is osteoarthritis of the hips and SI joints. The patient is status post right hip arthroplasty. MUSCULATURE: Unremarkable ALIGNMENT: There is grade 1 anterolisthesis of L4 on L5. SOFT TISSUES: There is large amount of stool within the rectum. This latter is collapsed runner Cardenas catheter. There is perirectal inflammatory change with a small amount of fluid tracking along the perirectal fascia, with a large degree results are noted posteriorly. OTHER FINDINGS: None. IMPRESSION: 1. WHILE THERE IS NO APPRECIABLE EROSION OR PERIOSTEAL REACTION, THERE IS A LARGE DECUBITUS ULCER THAT EXTENDS TO THE LAST 2 COSTOVERTEBRAL BODIES, SUSPICIOUS FOR OSTEOMYELITIS INVOLVING THE LEFT TO COSTOVERTEBRAL BODIES. 2. SPONDYLOLYSIS WITH SPONDYLOLISTHESIS. 3. PERIRECTAL INFLAMMATORY CHANGE.
[2017-11-22] MEDS ORDERED: Vancomycin per Pharmacy* NOTE FOLLOW UP PRN (19:50)
--- NOTE | 2017-11-22 21:20 | PN ---
Progress Note - Progress Note Date of Service: 11/22/17 Note: Patient noted to have fever and tachycardia consistent with sepsis secondary to osteomyelitis. Blood cultures have been sent. Lactic acid normal on arrival, will recheck now. Patient already on vancomycin, cefepime, and flagyl. Plan to add IVF bolus now at 30 ml/kg.
[2017-11-22] MEDS ORDERED: NS 0.9% 1000 ML* 1,000 ML IV SCH (21:30)
[2017-11-22] MEDS: NS 0.9% 1000 ML* 1,000 ML IV SCH ×2 (21:42→23:39)
[2017-11-22] MEDS: metroNIDAZOLE IV 500 MG/100ML* 500 MG/100 ML BAG IVPB SCH (21:42)
[2017-11-22] MEDS: Carbidopa/Levodop 25/100 MG TAB(*) PO SCH (21:45)
[2017-11-22] MEDS: clonazePAM TAB(*) 1 MG PO SCH (21:45)
[2017-11-22] MEDS: Morphine TAB Extended Release (*) 15 MG TAB.ER PO SCH (21:46)
[2017-11-22] MEDS: LORazepam TAB(*) 1 MG PO SCH (21:47)
[2017-11-22] MEDS ORDERED: Heparin VIAL(*) 5000 UNITS/ML VIAL (FIVE THOUSAND) SUBCUT SCH (22:00)
[2017-11-22] MEDS: Artificial Tears* 15 ML BTL BOTH EYES SCH (23:18)
[2017-11-22] MEDS: Baclofen TAB* 20 MG PO SCH (23:20)
[2017-11-22] MEDS: Cefepime 1 GM in Dextrose(*) 1 GM/50 ML BAG IV SCH (23:35)
[2017-11-23] MEDS: NS 0.9% 1000 ML* 1,000 ML IV SCH (00:36)
[2017-11-23] MEDS: Vancomycin(*) 1,250 MG in NS 0.9% 250 ML* 250 ML IVPB SCH ×3 (02:24→19:48)
--- NOTE | 2017-11-23 03:43 | CONS ---
CONSULTATION REPORT: DATE OF CONSULT: 11/22/17 REFERRING PROVIDER: Dr. Man, emergency room. REASON FOR CONSULT: Sacral decubitus. HISTORY OF PRESENT ILLNESS: Mr. Sridhar Sanderson is a 62-year-old gentleman with past medical history of Parkinson's disease, dementia, supranuclear palsy, hypertension, and early dementia who is presently resident at the [facility]. Apparently he has developed a sacral decubiti over the past several weeks according to his who was present here in the emergency room. He was referred today to the [facility] where he was noted to have a deep sacral decubiti which was debrided and it was felt that he required admission and he was sent to the emergency room. In the emergency room, he was noted to have a low grade fever of 99.7. He was hemodynamically stable. No other signs of sepsis. A white blood cell count of 7.3. Remainder of the history is unable to be obtained from the patient and his . His is not certain of the duration and present management of the sacral ulcer. PAST MEDICAL HISTORY: 1. Parkinson's disease. 2. Dementia. 3. Hypertension. 4. Progressive supranuclear palsy. PAST SURGICAL HISTORY: 1. Total hip replacement. 2. Knee arthroscopy. MEDICATIONS: Include, 1. Zolpidem. 2. Paxil. 3. Ditropan. 4. Prilosec. 5. Ativan. 6. Prinivil. 7. Carbidopa/levodopa. 8. Baclofen. 9. Tylenol. SOCIAL HISTORY: He does not use alcohol or tobacco. He is a resident of [facility]. REVIEW OF SYSTEMS: Unable to be obtained from the patient. PHYSICAL EXAM: Temperature 99.7, pulse 91, blood pressure 137/73, pulse oximetry 96. In general, he is unable to speak or respond and is immobile in bed. He appears to be in no apparent distress. He has a sacral decubiti measuring approximately 4 cm x 6 cm where the sacral prominence which extends down to bone and fascia. The skin has been painted with Betadine from previous debridement. This does not appear to be reddened. There does not appear to be any undrained abscess or significant tracking or undermining. IMPRESSION: Sacral decubitus which appears to be chronic and a stage 4 in a gentleman with the above medical condition and who lives at [facility]. PLAN/RECOMMENDATIONS: He is going to be admitted to the hospitalist service for further care. He will started on IV antibiotics. I do not believe that at this point, there is any further indication for debridement as there is no un- drained puss, undermining, or nonviable tissue that is obvious today. I would recommend IV antibiotics for the presumed osteomyelitis with the Infectious Disease consultation. A CAT scan of the pelvis has also been obtained. For now, we will start wet to dry b.i.d. normal saline packing changes and with plans to transition to a wound VAC after we can perform adequate assessment of the progression of the wound and possible infection. Thank you very much for this consultation. [id number]/[facility] #: [id number] AIYANA
--- NOTE | 2017-11-23 04:00 | HP ---
CC: Providers at [facility] * HOSPITAL MEDICINE HISTORY AND PHYSICAL: DATE OF ADMISSION: 11/22/17 ATTENDING PHYSICIAN: Dr. Bonilla * (dictation provided by Loren Sanchez NP). CHIEF COMPLAINT: Worsening sacral decubitus ulcer. HISTORY OF PRESENT ILLNESS: Mr. Sanderson is a 62-year-old male with a past medical history of Parkinson's with progressive supranuclear palsy, dementia, hypertension, and anxiety who presents to the hospital today from [facility] after being sent to the [facility] in evaluation of a sacral decubitus ulcer. Mr. Sanderson was last seen our hospital in July of this year, at which time he had treatment for a right hand infection. The patient's is at the bedside; she states that this has resolved completely but over about the past month there has been concerned that the patient has developed a large sacral decubitus ulcer. The patient's was first shown this ulcer approximately 1 month ago and there have been efforts to treat this with local wound care and turning and positioning at the correction. However , it was felt that the patient needed evaluation at the [facility] Care Clinic as it continued to progress. He was sent there today. On evaluation by Lorenza Gomez NP, she was very concerned that this was too extensive for management there and likely needed IV antibiotics for potential osteomyelitis. The patient is not able to offer any additional information to the history and physical today as he is nonverbal. There is no report of any other concern reported to the patient's from the staff at [place]. Mr. Sanderson has normal white blood cell count today. He has a C-reactive protein of 129.11. This is significantly elevated from his previous admission in July where it peaked at 55. He has mild worsening anemia with a hemoglobin of 12.4. His vitals are stable. PAST MEDICAL HISTORY: 1. Parkinson's disease. 2. Progressive supranuclear palsy. 3. Dementia. 4. Hypertension. 5. Psoriasis. 6. Insomnia. 7. Anxiety. MEDICATIONS: Outpatient are as follows: 1. Ambien 12.5 mg p.o. at bedtime. 2. Paxil 10 mg p.o. daily. 3. Multivitamin with mineral 1 tab p.o. daily. 4. Oxybutynin XL 10 mg p.o. daily. 5. Omeprazole 20 mg p.o. q.a.m. 6. Natural Tears as needed. 7. MS Contin 15 mg p.o. b.i.d. 8. Morphine oral concentrate 0.25 mL p.o. q. 4 hours p.r.n. 9. Mometasone 0.1% topically b.i.d. 10. Milk of Magnesia 30 mL p.o. q. 72 hours p.r.n. constipation. 11. Lorazepam 1 mg p.o. q. p.m. 12. Lisinopril 5 mg p.o. daily. 13. Lactulose 15 mL p.o. daily. 14. Ketoconazole 2% one application topically b.i.d. 15. Ibuprofen 400 mg p.o. t.i.d. p.r.n. 16. Clonazepam 2 mg p.o. b.i.d. 17. Glycerin adult suppository 1 suppository per rectum daily p.r.n. constipation. 18. Carbidopa/levodopa 25/100 three tabs p.o. t.i.d. 19. Calcium alginate powder topically daily. 20. Baclofen 20 mg p.o. b.i.d. 21. Advil PM caplet 2 each p.o. at bedtime p.r.n. 22. Tylenol 650 mg p.o. q. 4 hours p.r.n. ALLERGIES: To SULFA. FAMILY HISTORY: The patient's knows no family history of relevance. SOCIAL HISTORY: No report of alcohol, tobacco, or drug use. The patient is a resident of [facility]. His Millie Sanderson is his healthcare proxy. REVIEW OF SYSTEMS: A 14-point review of systems was attempted to be completed with the and as much of information as she knew she provided and as noted in the HPI. PHYSICAL EXAMINATION GENERAL: Mr. Sanderson is lying in the bed. He is in no acute distress. He appears anxious as described by his as his eyes are open wide and he is shaking his left arm. His face is symmetrical. I see no movement in bilateral lower extremities. Both upper extremities are contractured, right worse than left. VITAL SIGNS: Temperature 99.7, pulse rate 91, respiratory rate 21, O2 saturation 96% on room air, blood pressure 137/73. LUNGS: Clear to auscultation bilaterally with no accessory muscle use and good aeration. HEART: S1, S2. No murmur, rub, or gallop and regular. ABDOMEN: Soft, nontender. EXTREMITIES: No cyanosis. No edema. SKIN: Large tunneling ulceration at coccyx, approximately 6cm long, at least 4- 5 cm deep. No associated erythema or drainage LABORATORY DATA: WBC 7.3, hemoglobin 12.4, hematocrit 36, platelet count 201. INR 1.06. Sodium 136, potassium 4.1, chloride 101, serum bicarbonate 26, BUN 22, creatinine 0.58, glucose 118, CRP 129.11. ASSESSMENT: Mr. Sanderson is a 62-year-old male with a past medical history of Parkinson's disease and supranuclear palsy, who is bedbound and nonverbal, who presents to the hospital today from [facility] with concern for worsening sacral decubitus ulcer. Our plans are for inpatient admission with the expected length of stay to be greater than 2 days for the followin. Sacral decubitus ulcer: The patient shows no evidence of sepsis at this point; however, he is noted to have a significant wound likely with osteomyelitis. At this point, I have spoken with Dr. Lynn from Surgical Services and he will be providing consultation. The patient will have vancomycin, cefepime, and Flagyl for antibiotic coverage until he can be seen by Dr. Bay from Infectious Diseases. He will have a CT of the pelvis with IV contrast under the recommendation of Dr. Lynn to evaluate for osteomyelitis. The patient is comfort care with limited medical interventions per the 's report. She would be interested in treating with antibiotics. I have spoken with her and the plan will be for her to discuss any further surgical intervention including debridement or placement of a wound VAC with Dr. Lynn directly. At this point, she is amenable to CT scan and antibiotics. The patient will be turned in position q. [address] Lynn has left wound care and dressing recommendations. 2. Parkinson's disease with supranuclear palsy: Plan to continue his home carbidopa/levodopa. 3. Chronic anxiety: Continue clonazepam with lorazepam and also add an additional 0.5 mg lorazepam as needed for increased anxiety while hospitalized. Continue Paxil. 4. Hypertension: Continue lisinopril. 5. Chronic pain: Continue morphine both extended release and oral concentrate p.r.n. 6. DVT prophylaxis with heparin subcutaneous. 7. Disposition will be to the medical floor. 8. Code status is DNR/DNI and a MOLST form is completed by the patient's . TIME SPENT: Approximately 75 minutes was spent in the admission of this patient , more than half the time was spent with the patient at the bedside reviewing the events leading up to this hospitalization, performing the physical examination, and reviewing the plan of care. LOREN SANCHEZ NP [id number]/[facility] #: [id number] AIYANA
[2017-11-23] MEDS: metroNIDAZOLE IV 500 MG/100ML* 500 MG/100 ML BAG IVPB SCH ×3 (04:16→16:34)
[2017-11-23 06:41] LABS: ABS Basophils 0 10^3/ul (0-0.2); ABS Eosinophils 0.1 10^3/ul (0-0.6); ABS Lymphocytes 1.6 10^3/ul (1.0-4.8); ABS Neutrophils 4.8 10^3/ul (1.5-7.7); ABS Nucleated RBC 0 10^3/ul; Eosinophil % 0.8 % (0-6); Hematocrit 34 % (42-52); Hemoglobin 11.4 g/dl (14.0-18.0); Lymphocyte % 20.8 % (25-47); Mean Corpuscular HGB Conc 34 g/dl (31-36); Mean Corpuscular Hemoglobin 31 pg (27-31); Mean Corpuscular Volume 91 fL (80-94); Mean Platelet Volume 7.9 um3 (7.4-10.4); Nucleated Red Blood Cells % 0; Platelet Count 210 10^3/ul (150-450); Red Cell Distribution Width 13 % (10.5-15); White Blood Count 7.5 10^3/ul (3.5-10.8)
[2017-11-23 06:58] LABS: EGFR Non-African American 150.9 (>60)
[2017-11-23] MEDS: Lactulose* 15 ML UDC PO SCH (09:32)
[2017-11-23] MEDS: Artificial Tears* 15 ML BTL BOTH EYES SCH ×4 (09:32→22:18)
[2017-11-23] MEDS: Cefepime 1 GM in Dextrose(*) 1 GM/50 ML BAG IV SCH ×3 (09:34→22:52)
[2017-11-23] MEDS: Benzocaine (DENTAL) 7.5%* 10 GM TOP.GEL TOPICAL SCH ×3 (09:35→15:12)
[2017-11-23] MEDS: Acetaminophen ADULT LIQ* 650 MG/20.3 ML UDC PO PRN ×2 (09:43→18:44)
[2017-11-23] MEDS: Carbidopa/Levodop 25/100 MG TAB(*) PO SCH ×3 (09:45→21:34)
[2017-11-23] MEDS: Baclofen TAB* 20 MG PO SCH ×2 (09:45→21:33)
[2017-11-23] MEDS: clonazePAM TAB(*) 1 MG PO SCH ×2 (09:46→21:33)
[2017-11-23] MEDS: Oxybutynin XL TAB* 5 MG PO SCH (09:46)
[2017-11-23] MEDS: PARoxetine HCL TAB* 10 MG PO SCH (09:46)
[2017-11-23] MEDS: Morphine TAB Extended Release (*) 15 MG TAB.ER PO SCH ×2 (09:47→21:33)
[2017-11-23] MEDS: Omeprazole CAP* 20 MG PO SCH (09:47)
[2017-11-23] MEDS: Lisinopril TAB* 5 MG PO SCH (09:47)
[2017-11-23] MEDS: Multivitamins/Minerals TAB PO SCH (09:47)
[2017-11-23] MEDS ORDERED: LORazepam INJ* 2 MG/ML 1 ML VIAL IV PUSH PRN (10:49)
[2017-11-23] MEDS: Heparin VIAL(*) 5000 UNITS/ML VIAL (FIVE THOUSAND) SUBCUT SCH ×2 (11:37→18:45)
[2017-11-23] MEDS: Morphine ORAL.SOLN 10 mg* 2 MG/ML UDC 5 ml PO PRN (14:49)
--- NOTE | 2017-11-23 15:32 | PN ---
Subjective Date of Service: 11/23/17 Interval History: Patient still non-verbal. Agitated for much of morning, unable to communicate. Talked with who has concerns about care at [facility]. Family History: Unchanged from Admission Social History: Unchanged from Admission Past Medical History: Unchanged from Admission Objective Active Medications: Acetaminophen (Tylenol Adult Liq*) 650 mg PO Q6H PRN PRN Reason: PAIN Last Admin: 11/23/17 09:43 Dose: 650 mg Artificial Tears (Lacrilube Oint*) 1 applic BOTH EYES Q12H PRN PRN Reason: DRY EYE Baclofen (Lioresal Tab*) 20 mg PO BID [facility] Last Admin: 11/23/17 09:45 Dose: 20 mg Benzocaine (Baby Orajel 7.5%*) 1 applic TOPICAL TID [facility] Last Admin: 11/23/17 15:12 Dose: Not Given Carbidopa/Levodopa (Sinemet 25/100 Tab(*)) 3 tab PO TID [facility] Last Admin: 11/23/17 14:49 Dose: 3 tab Clonazepam (Klonopin Tab(*)) 2 mg PO BID [facility] Last Admin: 11/23/17 09:46 Dose: 2 mg Glycerin (Glycerin Adult Supp*) 1 supp [place] DAILY PRN PRN Reason: CONSTIPATION Heparin Sodium (Porcine) (Heparin Vial(*)) 5,000 units SUBCUT Q8H [facility] Last Admin: 11/23/17 11:37 Dose: 5,000 units Cefepime HCl (Maxipime 1 Gm In Dextrose Duplex (*)) 1 gm in 50 mls @ 100 mls/ hr IV Q12H [facility] Last Admin: 11/23/17 09:34 Dose: 100 mls/hr Vancomycin HCl 1,250 mg/ (Sodium Chloride) 250 mls @ 166.667 mls/hr IVPB Q8H [facility] Last Admin: 11/23/17 10:48 Dose: 166.667 mls/hr Lactated Ringer's (Lactated Ringers 1000 Ml Bag*) 1,000 mls @ 100 mls/hr IV ONCE ONE Stop: 11/23/17 17:53 Last Admin: 11/23/17 10:48 Dose: 100 mls/hr Metronidazole/Sodium Chloride (Flagyl 500 Mg Ivpb*) 500 mg in 100 mls @ 100 mls /hr IVPB 0700,1500,2300 [facility] Ibuprofen (Advil Tab*) 400 mg PO TID PRN PRN Reason: PAIN Lactulose (Lactulose*) 15 ml PO DAILY [facility] Last Admin: 11/23/17 09:32 Dose: 15 ml Lisinopril (Prinivil Tab*) 5 mg PO DAILY [facility] Last Admin: 11/23/17 09:47 Dose: 5 mg Lorazepam (Ativan Tab(*)) 1 mg PO QPM [facility] Last Admin: 11/22/17 21:47 Dose: 1 mg Lorazepam (Ativan Inj*) 0.5 mg IV PUSH Q6H PRN PRN Reason: ANXIETY Magnesium Hydroxide (Milk Of Magnesia Liq*) 30 ml PO Q72H PRN PRN Reason: CONSTIPATION Morphine Sulfate (Morphine Oral.Soln 10 Mg*) 5 mg PO Q4H PRN PRN Reason: PAIN Last Admin: 11/23/17 14:49 Dose: 5 mg Morphine Sulfate (Ms Contin(*)) 15 mg PO BID [facility] Last Admin: 11/23/17 09:47 Dose: 15 mg Multivitamins/Minerals (Theragran/Minerals Tab*) 1 tab PO DAILY [facility] Last Admin: 11/23/17 09:47 Dose: 1 tab Omeprazole (Prilosec Cap*) 20 mg PO QAM@0730 [facility] Last Admin: 11/23/17 09:47 Dose: 20 mg Ondansetron HCl (Zofran Odt Tab*) 4 mg SL Q6H PRN PRN Reason: NAUSEA/VOMITING Oxybutynin Chloride (Ditropan Xl Tab*) 10 mg PO DAILY [facility] Last Admin: 11/23/17 09:46 Dose: 10 mg Paroxetine HCl (Paxil Tab*) 10 mg PO DAILY [facility] Last Admin: 11/23/17 09:46 Dose: 10 mg Pharmacy Consult (Vancomycin Per Pharmacy*) 1 note FOLLOW UP . PRN PRN Reason: PER PROTOCOL Pharmacy Profile Note (Vancomycin Trough Check) 1 note FOLLOW UP 1730 ONE Stop: 11/23/17 17:31 Polyvinyl Alcohol (Polyvinyl Alcohol 1.4% Opth*) 1 drop BOTH EYES QID [facility] Last Admin: 11/23/17 15:11 Dose: Not Given Zolpidem Tartrate (Ambien Tab*) 10 mg PO BEDTIME PRN PRN Reason: INSOMNIA Vital Signs - 8 hr 05/05/18 05/05/18 05/05/18 08:03 09:46 09:47 Temperature 100.8 F Pulse Rate 77 Respiratory 23 32 32 Rate Blood Pressure 125/67 (mmHg) O2 Sat by Pulse 92 Oximetry 11/23/17 11/23/17 11/23/17 10:00 10:47 11:27 Temperature 98.4 F Pulse Rate 90 Respiratory 32 32 16 Rate Blood Pressure 133/63 (mmHg) O2 Sat by Pulse 95 Oximetry 11/23/17 11/23/17 14:49 15:11 Temperature Pulse Rate Respiratory 36 36 Rate Blood Pressure (mmHg) O2 Sat by Pulse Oximetry Oxygen Devices in Use Now: None Appearance: Patient is a 62yo male who appears stated age and is sitting in the bed in [place]. Eyes: No Scleral Icterus, PERRLA Ears/Nose/Mouth/Throat: - - Will not open mouth for examination. Neck: NL Appearance and Movements; NL JVP, Trachea Midline Respiratory: Symmetrical Chest Expansion and Respiratory Effort, Clear to Auscultation Cardiovascular: NL Sounds; No Murmurs; No JVD, RRR, No Edema Abdominal: NL Sounds; No Tenderness; No Distention, No Hepatosplenomegaly Lymphatic: No Cervical Adenopathy Extremities: No Edema, No Clubbing, Cyanosis Skin: No Nodules or Sclerosis, - - Right thumb covered in dressing. Decubitus ulcer covered with ABD pad. Neurological: - - Non-Verbal, Contractures. PERRLA Result Diagrams: 11/23/17 06:32 11/23/17 06:32 Additional Lab and Data: Lab Results Microbiology and Other Data: Microbiology 11/22/17 18:51 Nasal Screen MRSA (PCR)(ALYSE) - Final Nasal Mrsa Detected Assess/Plan/Problems-Billing Assessment: - Patient Problems (1) Osteomyelitis Current Visit: No Status: Acute Code(s): M86.9 - OSTEOMYELITIS, UNSPECIFIED SNOMED Code(s): 34004017 Comment: Probable osteomyelitis on CT scan. Continue Cefepime, Vancomycin and Flagyl IV. Duration pending ID consult. Consideration for wound vac, no need for current debridement. (2) PSP (progressive supranuclear palsy) Current Visit: No Status: Acute Code(s): G23.1 - PROGRESSIVE SUPRANUCLEAR OPHTHALMOPLEGIA SNOMED Code(s): 10232714 Comment: At baseline the patient is non-verbal 2/2 dementia. Conitnue baclofen, clonazepam and sinemet. Will discuss possible palliative care with . (3) Anxiety Current Visit: No Status: Acute Code(s): F41.9 - ANXIETY DISORDER, UNSPECIFIED SNOMED Code(s): 92576094 Comment: Continue clonazepam BID and ativan at Night. IV ativan PRN due to spitting out pills when agitated. (4) Constipation Current Visit: No Status: Acute Code(s): K59.00 - CONSTIPATION, UNSPECIFIED SNOMED Code(s): 27642221 Comment: Chronic Constipation Continued scheduled and PRN laxatives. Unknown date of last BM. (5) HTN (hypertension) Current Visit: No Status: Acute Code(s): I10 - ESSENTIAL (PRIMARY) HYPERTENSION SNOMED Code(s): 07655801 Comment: Normotensive, Continue Lisinopril. (6) DVT prophylaxis Current Visit: No Status: Acute Code(s): KUA6452 - SNOMED Code(s): 647975232 Comment: SQ heparin (7) DNR (do not resuscitate) Current Visit: No Status: Acute Comment: Status and Disposition: Inpatient for IV antibiotics.
[2017-11-23] MEDS ORDERED: Vancomycin Trough Check NOTE FOLLOW UP ONE (17:30)
[2017-11-23] MEDS: LORazepam TAB(*) 1 MG PO SCH (18:44)
[2017-11-24] MEDS: Benzocaine (DENTAL) 7.5%* 10 GM TOP.GEL TOPICAL SCH ×5 (00:18→20:16)
[2017-11-24] MEDS: Acetaminophen ADULT LIQ* 650 MG/20.3 ML UDC PO PRN ×2 (00:18→21:20)
[2017-11-24] MEDS: metroNIDAZOLE IV 500 MG/100ML* 500 MG/100 ML BAG IVPB SCH ×4 (00:23→23:42)
[2017-11-24] MEDS: Vancomycin(*) 1,250 MG in NS 0.9% 250 ML* 250 ML IVPB SCH ×4 (01:38→20:09)
[2017-11-24] MEDS: Heparin VIAL(*) 5000 UNITS/ML VIAL (FIVE THOUSAND) SUBCUT SCH ×3 (02:45→16:55)
[2017-11-24 07:17] LABS: ABS Basophils 0.1 10^3/ul (0-0.2); ABS Eosinophils 0.1 10^3/ul (0-0.6); ABS Monocytes 0.9 10^3/ul (0-0.8); ABS Nucleated RBC 0 10^3/ul; Eosinophil % 1.5 % (0-6); Hematocrit 35 % (42-52); Hemoglobin 12.1 g/dl (14.0-18.0); Lymphocyte % 12.5 % (25-47); Mean Corpuscular HGB Conc 34 g/dl (31-36); Mean Corpuscular Hemoglobin 31 pg (27-31); Mean Corpuscular Volume 90 fL (80-94); Mean Platelet Volume 7.9 um3 (7.4-10.4); Nucleated Red Blood Cells % 0; Platelet Count 206 10^3/ul (150-450); Red Blood Count 3.92 10^6/ul (4.0-5.4); Red Cell Distribution Width 13 % (10.5-15); White Blood Count 8.1 10^3/ul (3.5-10.8)
[2017-11-24] MEDS: Carbidopa/Levodop 25/100 MG TAB(*) PO SCH ×3 (07:21→20:09)
[2017-11-24] MEDS: Artificial Tears* 15 ML BTL BOTH EYES SCH ×4 (07:21→20:12)
[2017-11-24] MEDS: Baclofen TAB* 20 MG PO SCH ×2 (07:21→20:10)
[2017-11-24] MEDS: Oxybutynin XL TAB* 5 MG PO SCH (07:21)
[2017-11-24] MEDS: Lactulose* 15 ML UDC PO SCH (07:21)
[2017-11-24] MEDS: Multivitamins/Minerals TAB PO SCH (07:22)
[2017-11-24] MEDS: clonazePAM TAB(*) 1 MG PO SCH ×2 (07:22→20:10)
[2017-11-24] MEDS: Morphine TAB Extended Release (*) 15 MG TAB.ER PO SCH ×2 (07:22→20:11)
[2017-11-24] MEDS: Lisinopril TAB* 5 MG PO SCH (07:22)
[2017-11-24] MEDS: PARoxetine HCL TAB* 10 MG PO SCH (07:23)
[2017-11-24 07:42] LABS: EGFR Non-African American 164.7 (>60)
[2017-11-24] MEDS: Omeprazole CAP* 20 MG PO SCH (09:20)
[2017-11-24] MEDS: Cefepime 1 GM in Dextrose(*) 1 GM/50 ML BAG IV SCH ×2 (11:03→22:41)
[2017-11-24] MEDS: Morphine ORAL.SOLN 10 mg* 2 MG/ML UDC 5 ml PO PRN (12:33)
--- NOTE | 2017-11-24 15:24 | PN ---
Subjective Date of Service: 11/24/17 Interval History: Patient is persistently non-verbal. Opened mouth today in response to request to do so. Discussed at length goals of care and she is willing to discuss with palliative care team about hospice. Concerned about basic care provided at group home. Family History: Unchanged from Admission Social History: Unchanged from Admission Past Medical History: Unchanged from Admission Objective Active Medications: Acetaminophen (Tylenol Adult Liq*) 650 mg PO Q6H PRN PRN Reason: PAIN Last Admin: 11/24/17 00:18 Dose: 650 mg Artificial Tears (Lacrilube Oint*) 1 applic BOTH EYES Q12H PRN PRN Reason: DRY EYE Baclofen (Lioresal Tab*) 20 mg PO BID [facility] Last Admin: 11/24/17 07:21 Dose: 20 mg Benzocaine (Baby Orajel 7.5%*) 1 applic TOPICAL TID [facility] Last Admin: 11/24/17 14:04 Dose: 1 applic Carbidopa/Levodopa (Sinemet 25/100 Tab(*)) 3 tab PO TID [facility] Last Admin: 11/24/17 14:04 Dose: 3 tab Clonazepam (Klonopin Tab(*)) 2 mg PO BID [facility] Last Admin: 11/24/17 07:22 Dose: 2 mg Glycerin (Glycerin Adult Supp*) 1 supp [place] DAILY PRN PRN Reason: CONSTIPATION Heparin Sodium (Porcine) (Heparin Vial(*)) 5,000 units SUBCUT Q8H [facility] Last Admin: 11/24/17 11:03 Dose: 5,000 units Cefepime HCl (Maxipime 1 Gm In Dextrose Duplex (*)) 1 gm in 50 mls @ 100 mls/ hr IV Q12H [facility] Last Admin: 11/24/17 11:03 Dose: 100 mls/hr Metronidazole/Sodium Chloride (Flagyl 500 Mg Ivpb*) 500 mg in 100 mls @ 100 mls /hr IVPB 0700,1500,2300 [facility] Last Admin: 11/24/17 07:23 Dose: 100 mls/hr Vancomycin HCl 1,250 mg/ (Sodium Chloride) 250 mls @ 166.667 mls/hr IVPB Q6H [facility] Last Admin: 11/24/17 14:04 Dose: 166.667 mls/hr Ibuprofen (Advil Tab*) 400 mg PO TID PRN PRN Reason: PAIN Lactulose (Lactulose*) 15 ml PO DAILY [facility] Last Admin: 11/24/17 07:21 Dose: 15 ml Lisinopril (Prinivil Tab*) 5 mg PO DAILY [facility] Last Admin: 11/24/17 07:22 Dose: 5 mg Lorazepam (Ativan Tab(*)) 1 mg PO QPM [facility] Last Admin: 11/23/17 18:44 Dose: 1 mg Lorazepam (Ativan Inj*) 0.5 mg IV PUSH Q6H PRN PRN Reason: ANXIETY Magnesium Hydroxide (Milk Of Magnesia Liq*) 30 ml PO Q72H PRN PRN Reason: CONSTIPATION Morphine Sulfate (Morphine Oral.Soln 10 Mg*) 5 mg PO Q4H PRN PRN Reason: PAIN Last Admin: 11/24/17 12:33 Dose: 5 mg Morphine Sulfate (Ms Contin(*)) 15 mg PO BID [facility] Last Admin: 11/24/17 07:22 Dose: 15 mg Multivitamins/Minerals (Theragran/Minerals Tab*) 1 tab PO DAILY [facility] Last Admin: 11/24/17 07:22 Dose: 1 tab Omeprazole (Prilosec Cap*) 20 mg PO QAM@0730 [facility] Last Admin: 11/24/17 09:20 Dose: 20 mg Ondansetron HCl (Zofran Odt Tab*) 4 mg SL Q6H PRN PRN Reason: NAUSEA/VOMITING Oxybutynin Chloride (Ditropan Xl Tab*) 10 mg PO DAILY [facility] Last Admin: 11/24/17 07:21 Dose: 10 mg Paroxetine HCl (Paxil Tab*) 10 mg PO DAILY [facility] Last Admin: 11/24/17 07:23 Dose: 10 mg Pharmacy Consult (Vancomycin Per Pharmacy*) 1 note FOLLOW UP . PRN PRN Reason: PER PROTOCOL Pharmacy Profile Note (Vancomycin Trough Check) 1 note FOLLOW UP 0800 ONE Stop: 11/25/17 08:01 Polyvinyl Alcohol (Polyvinyl Alcohol 1.4% Opth*) 1 drop BOTH EYES QID [facility] Last Admin: 11/24/17 11:35 Dose: Not Given Zolpidem Tartrate (Ambien Tab*) 10 mg PO BEDTIME PRN PRN Reason: INSOMNIA Vital Signs - 8 hr 05/06/18 05/06/18 05/06/18 07:20 07:22 07:39 Temperature 99.0 F Pulse Rate Respiratory 20 20 Rate Blood Pressure (mmHg) O2 Sat by Pulse 97 Oximetry 11/24/17 11/24/17 11/24/17 09:44 12:02 12:33 Temperature 99.3 F Pulse Rate 79 Respiratory 18 24 20 Rate Blood Pressure 115/49 (mmHg) O2 Sat by Pulse 94 Oximetry 11/24/17 14:03 Temperature Pulse Rate Respiratory 18 Rate Blood Pressure (mmHg) O2 Sat by Pulse Oximetry Oxygen Devices in Use Now: None Appearance: Patient is a 62yo male who appears stated age and is sitting in the bed in [facility]. Eyes: No Scleral Icterus, PERRLA Ears/Nose/Mouth/Throat: NL Teeth, Lips, Gums, Clear Oropharnyx, Mucous Membranes Moist Neck: NL Appearance and Movements; NL JVP, Trachea Midline Respiratory: Symmetrical Chest Expansion and Respiratory Effort, Clear to Auscultation Cardiovascular: NL Sounds; No Murmurs; No JVD, RRR, No Edema Abdominal: NL Sounds; No Tenderness; No Distention, No Hepatosplenomegaly Lymphatic: No Cervical Adenopathy Extremities: No Edema, - - Contractures of B/L hands. [place]utan-neck like deformity of fingers on right hand. Right thumb wrapped in pressure relieving dressing. Skin: No Nodules or Sclerosis, - - Decubitus wound not visualized today. Neurological: - - Non-Verbal Result Diagrams: 11/24/17 07:05 11/24/17 07:05 Additional Lab and Data: Lab Results Microbiology and Other Data: Microbiology 11/22/17 18:51 Nasal Screen MRSA (PCR)(ALYSE) - Final Nasal Mrsa Detected Assess/Plan/Problems-Billing Assessment: - Patient Problems (1) Osteomyelitis Current Visit: No Status: Acute Code(s): M86.9 - OSTEOMYELITIS, UNSPECIFIED SNOMED Code(s): 22373291 Comment: Associated with decubitus ulcer. Continue aggressive pressure relief. Probable osteomyelitis on CT scan. Continue Cefepime, Vancomycin and Flagyl IV. Duration pending ID consult. Consideration for wound vac, no need for current debridement. (2) PSP (progressive supranuclear palsy) Current Visit: No Status: Acute Code(s): G23.1 - PROGRESSIVE SUPRANUCLEAR OPHTHALMOPLEGIA SNOMED Code(s): 53393000 Comment: At baseline the patient is non-verbal 2/2 dementia. Conitnue baclofen, clonazepam and sinemet. Palliative care discussed with and she is currently considering a more palliative approach. (3) Anxiety Current Visit: No Status: Acute Code(s): F41.9 - ANXIETY DISORDER, UNSPECIFIED SNOMED Code(s): 11865846 Comment: Continue clonazepam BID and ativan at Night. IV ativan PRN due to spitting out pills when agitated. (4) Constipation Current Visit: No Status: Acute Code(s): K59.00 - CONSTIPATION, UNSPECIFIED SNOMED Code(s): 09385467 Comment: Chronic Constipation Continued scheduled and PRN laxatives. Small BM yesterday. (5) HTN (hypertension) Current Visit: No Status: Acute Code(s): I10 - ESSENTIAL (PRIMARY) HYPERTENSION SNOMED Code(s): 56817665 Comment: Normotensive, Continue Lisinopril. (6) DVT prophylaxis Current Visit: No Status: Acute Code(s): MZH0491 - SNOMED Code(s): 384914402 Comment: SQ heparin (7) DNR (do not resuscitate) Current Visit: No Status: Acute Comment: Status and Disposition: Inpatient for IV antibiotics. To [facility] at discharge. Consideration for Hospice.
[2017-11-24] MEDS: LORazepam TAB(*) 1 MG PO SCH (16:55)
[2017-11-25] MEDS: Vancomycin(*) 1,250 MG in NS 0.9% 250 ML* 250 ML IVPB SCH ×2 (02:14→08:29)
[2017-11-25] MEDS: Heparin VIAL(*) 5000 UNITS/ML VIAL (FIVE THOUSAND) SUBCUT SCH ×3 (02:21→17:35)
[2017-11-25] MEDS: Morphine ORAL.SOLN 10 mg* 2 MG/ML UDC 5 ml PO PRN (06:16)
[2017-11-25] MEDS: metroNIDAZOLE IV 500 MG/100ML* 500 MG/100 ML BAG IVPB SCH ×2 (06:19→16:12)
[2017-11-25 07:06] LABS: ABS Basophils 0.1 10^3/ul (0-0.2); ABS Eosinophils 0.2 10^3/ul (0-0.6); ABS Lymphocytes 1.1 10^3/ul (1.0-4.8); ABS Monocytes 0.9 10^3/ul (0-0.8); ABS Neutrophils 5.4 10^3/ul (1.5-7.7); ABS Nucleated RBC 0 10^3/ul; Eosinophil % 2.2 % (0-6); Hematocrit 36 % (42-52); Hemoglobin 12.3 g/dl (14.0-18.0); Lymphocyte % 14.3 % (25-47); Mean Corpuscular HGB Conc 34 g/dl (31-36); Mean Corpuscular Hemoglobin 31 pg (27-31); Mean Corpuscular Volume 91 fL (80-94); Mean Platelet Volume 7.9 um3 (7.4-10.4); Nucleated Red Blood Cells % 0; Platelet Count 238 10^3/ul (150-450); Red Blood Count 4.01 10^6/ul (4.0-5.4); Red Cell Distribution Width 13 % (10.5-15); White Blood Count 7.6 10^3/ul (3.5-10.8)
[2017-11-25 07:26] LABS: EGFR Non-African American 150.9 (>60)
[2017-11-25] MEDS ORDERED: Vancomycin Trough Check NOTE FOLLOW UP ONE (08:00)
[2017-11-25] MEDS: Carbidopa/Levodop 25/100 MG TAB(*) PO SCH ×3 (08:29→21:26)
[2017-11-25] MEDS: Artificial Tears* 15 ML BTL BOTH EYES SCH ×4 (08:29→21:27)
[2017-11-25] MEDS: Lactulose* 15 ML UDC PO SCH (08:29)
[2017-11-25] MEDS: Baclofen TAB* 20 MG PO SCH ×2 (08:29→21:25)
[2017-11-25] MEDS: Multivitamins/Minerals TAB PO SCH (08:30)
[2017-11-25] MEDS: clonazePAM TAB(*) 1 MG PO SCH ×2 (08:30→21:26)
[2017-11-25] MEDS: PARoxetine HCL TAB* 10 MG PO SCH (08:30)
[2017-11-25] MEDS: Morphine TAB Extended Release (*) 15 MG TAB.ER PO SCH ×2 (08:30→21:26)
[2017-11-25] MEDS: Oxybutynin XL TAB* 5 MG PO SCH (08:31)
[2017-11-25] MEDS: Lisinopril TAB* 5 MG PO SCH (08:31)
[2017-11-25] MEDS: Benzocaine (DENTAL) 7.5%* 10 GM TOP.GEL TOPICAL SCH ×3 (08:32→21:27)
[2017-11-25] MEDS: Omeprazole CAP* 20 MG PO SCH (08:35)
[2017-11-25] MEDS: Cefepime 1 GM in Dextrose(*) 1 GM/50 ML BAG IV SCH (11:36)
[2017-11-25] MEDS ORDERED: Vancomycin(*) 1,000 MG in NS 0.9% 250 ML* 250 ML IVPB SCH (14:00)
--- NOTE | 2017-11-25 15:10 | CONSULT ---
Palliative / Hospice Consult Ordering Provider: George Bull - Subjective Date: 11/25/17 Date: 11/25/17 - History or Present Illness Lab Values: Abnormal Lab Results 11/25/17 11/25/17 11/25/17 06:56 06:56 06:56 WBC 7.6 RBC 4.01 Hgb 12.3 L Hct 36 L MCV 91 MCH 31 MCHC 34 RDW 13 Plt Count 238 MPV 7.9 Neut % (Auto) 70.9 Lymph % (Auto) 14.3 L [place] % (Auto) 11.7 H Eos % (Auto) 2.2 Baso % (Auto) 0.9 Absolute Neuts (auto) 5.4 Absolute Lymphs (auto) 1.1 Absolute Monos (auto) 0.9 H Absolute Eos (auto) 0.2 Absolute Basos (auto) 0.1 Absolute Nucleated RBC 0 Nucleated RBC % 0 Sodium 138 L Potassium 4.1 Chloride 104 Carbon Dioxide 28 Anion Gap 6 BUN 12 Creatinine 0.55 L Est GFR ( Amer) 194.1 Est GFR (Non-Af Amer) 150.9 BUN/Creatinine Ratio 21.8 H Glucose 104 H Calcium 9.2 C-Reactive Protein 106.62 H Vancomycin Trough 18.8 Laboratory Last Values WBC 7.6 10^3/ul (3.5-10.8) 11/25/17 06:56 RBC 4.01 10^6/ul (4.0-5.4) 11/25/17 06:56 Hgb 12.3 g/dl (14.0-18.0) L 11/25/17 06:56 Hct 36 % (42-52) L 11/25/17 06:56 MCV 91 fL (80-94) 11/25/17 06:56 MCH 31 pg (27-31) 11/25/17 06:56 MCHC 34 g/dl (31-36) 11/25/17 06:56 RDW 13 % (10.5-15) 11/25/17 06:56 Plt Count 238 10^3/ul (150-450) 11/25/17 06:56 MPV 7.9 um3 (7.4-10.4) 11/25/17 06:56 Neut % (Auto) 70.9 % (38-83) 11/25/17 06:56 Lymph % (Auto) 14.3 % (25-47) L 11/25/17 06:56 [place] % (Auto) 11.7 % (0-7) H 11/25/17 06:56 Eos % (Auto) 2.2 % (0-6) 11/25/17 06:56 Baso % (Auto) 0.9 % (0-2) 11/25/17 06:56 Absolute Neuts (auto) 5.4 10^3/ul (1.5-7.7) 11/25/17 06:56 Absolute Lymphs (auto) 1.1 10^3/ul (1.0-4.8) 11/25/17 06:56 Absolute Monos (auto) 0.9 10^3/ul (0-0.8) H 11/25/17 06:56 Absolute Eos (auto) 0.2 10^3/ul (0-0.6) 11/25/17 06:56 Absolute Basos (auto) 0.1 10^3/ul (0-0.2) 11/25/17 06:56 Absolute Nucleated RBC 0 10^3/ul 11/25/17 06:56 Nucleated RBC % 0 11/25/17 06:56 INR (Anticoag Therapy) 1.06 (0.77-1.02) H 11/22/17 16:20 APTT 32.0 seconds (26.0-36.3) 11/22/17 16:20 Sodium 138 mmol/L (139-145) L 11/25/17 06:56 Potassium 4.1 mmol/L (3.5-5.0) 11/25/17 06:56 Chloride 104 mmol/L (101-111) 11/25/17 06:56 Carbon Dioxide 28 mmol/L (22-32) 11/25/17 06:56 Anion Gap 6 mmol/L (2-11) 11/25/17 06:56 BUN 12 mg/dL (6-24) 11/25/17 06:56 Creatinine 0.55 mg/dL (0.67-1.17) L 11/25/17 06:56 Est GFR ( Amer) 194.1 (>60) 11/25/17 06:56 Est GFR (Non-Af Amer) 150.9 (>60) 05/07/18 06:56 BUN/Creatinine Ratio 21.8 (8-20) H 11/25/17 06:56 Glucose 104 mg/dL (70-100) H 11/25/17 06:56 Lactic Acid 0.6 mmol/L (0.5-2.0) 11/22/17 22:02 Calcium 9.2 mg/dL (8.6-10.3) 11/25/17 06:56 Iron 31 ug/dL (50-212) L 11/22/17 16:20 TIBC 239 mcg/dL (250-450) L 11/22/17 16:20 % Saturation 13 % (15-55) L 11/22/17 16:20 Unsat Iron Binding 208 ug/dL 11/22/17 16:20 Transferrin 171 mg/dL (203-362) L 11/22/17 16:20 Ferritin 353.0 ng/mL (24-336) H 11/22/17 16:20 C-Reactive Protein 106.62 mg/L (< 5.00) H 11/25/17 06:56 Albumin 3.5 g/dL (3.2-5.2) 11/22/17 16:20 Prealbumin 12 mg/dL (18-38) L 11/22/17 16:20 Vitamin B12 528 pg/mL (180-914) 11/22/17 16:20 Folate > 20.00 ng/mL (>3.99) 11/22/17 16:20 Vancomycin Trough 18.8 mcg/mL 11/25/17 06:56 - Objective Active Medications: Acetaminophen (Tylenol Adult Liq*) 650 mg PO Q6H PRN PRN Reason: PAIN Last Admin: 11/24/17 21:20 Dose: 650 mg Artificial Tears (Lacrilube Oint*) 1 applic BOTH EYES Q12H PRN PRN Reason: DRY EYE Baclofen (Lioresal Tab*) 20 mg PO BID [facility] Last Admin: 11/25/17 08:29 Dose: 20 mg Benzocaine (Baby Orajel 7.5%*) 1 applic TOPICAL TID [facility] Last Admin: 11/25/17 14:28 Dose: 1 applic Carbidopa/Levodopa (Sinemet 25/100 Tab(*)) 3 tab PO TID [facility] Last Admin: 11/25/17 14:28 Dose: 3 tab Clonazepam (Klonopin Tab(*)) 2 mg PO BID [facility] Last Admin: 11/25/17 08:30 Dose: 2 mg Glycerin (Glycerin Adult Supp*) 1 supp NE DAILY PRN PRN Reason: CONSTIPATION Heparin Sodium (Porcine) (Heparin Vial(*)) 5,000 units SUBCUT Q8H [facility] Last Admin: 11/25/17 11:38 Dose: 5,000 units Cefepime HCl (Maxipime 1 Gm In Dextrose Duplex (*)) 1 gm in 50 mls @ 100 mls/ hr IV Q12H [facility] Last Admin: 11/25/17 11:36 Dose: 100 mls/hr Metronidazole/Sodium Chloride (Flagyl 500 Mg Ivpb*) 500 mg in 100 mls @ 100 mls /hr IVPB 0700,1500,2300 [facility] Last Admin: 11/25/17 06:19 Dose: 100 mls/hr Vancomycin HCl 1,000 mg/ (Sodium Chloride) 250 mls @ 166.667 mls/hr IVPB Q6H [facility] Ibuprofen (Advil Tab*) 400 mg PO TID PRN PRN Reason: PAIN Lactulose (Lactulose*) 15 ml PO DAILY [facility] Last Admin: 11/25/17 08:29 Dose: 15 ml Lisinopril (Prinivil Tab*) 5 mg PO DAILY [facility] Last Admin: 11/25/17 08:31 Dose: 5 mg Lorazepam (Ativan Tab(*)) 1 mg PO QPM [facility] Last Admin: 11/24/17 16:55 Dose: 1 mg Lorazepam (Ativan Inj*) 0.5 mg IV PUSH Q6H PRN PRN Reason: ANXIETY Magnesium Hydroxide (Milk Of Magnesia Liq*) 30 ml PO Q72H PRN PRN Reason: CONSTIPATION Morphine Sulfate (Morphine Oral.Soln 10 Mg*) 5 mg PO Q4H PRN PRN Reason: PAIN Last Admin: 11/25/17 06:16 Dose: 5 mg Morphine Sulfate (Ms Contin(*)) 15 mg PO BID [facility] Last Admin: 11/25/17 08:30 Dose: 15 mg Multivitamins/Minerals (Theragran/Minerals Tab*) 1 tab PO DAILY [facility] Last Admin: 11/25/17 08:30 Dose: 1 tab Omeprazole (Prilosec Cap*) 20 mg PO QAM@0730 [facility] Last Admin: 11/25/17 08:35 Dose: 20 mg Ondansetron HCl (Zofran Odt Tab*) 4 mg SL Q6H PRN PRN Reason: NAUSEA/VOMITING Oxybutynin Chloride (Ditropan Xl Tab*) 10 mg PO DAILY [facility] Last Admin: 11/25/17 08:31 Dose: 10 mg Paroxetine HCl (Paxil Tab*) 10 mg PO DAILY [facility] Last Admin: 11/25/17 08:30 Dose: 10 mg Pharmacy Consult (Vancomycin Per Pharmacy*) 1 note FOLLOW UP . PRN PRN Reason: PER PROTOCOL Pharmacy Profile Note (Vancomycin Trough Check) 1 note FOLLOW UP 0800 ONE Stop: 11/27/17 08:01 Polyvinyl Alcohol (Polyvinyl Alcohol 1.4% Opth*) 1 drop BOTH EYES QID [facility] Last Admin: 11/25/17 14:29 Dose: 1 drop Zolpidem Tartrate (Ambien Tab*) 10 mg PO BEDTIME PRN PRN Reason: INSOMNIA Vital Signs: Vital Signs: Temp Pulse Resp BP Pulse Ox 98.8 F 76 21 149/70 93 11/25/17 14:35 11/25/17 12:05 11/25/17 12:05 11/25/17 12:05 11/25/17 12:05 Patient Weight: Weight 247 lb 6.4 oz Intake and Output: Intake & Output 11/23/17 11/24/17 11/25/17 11/26/17 06:59 06:59 06:59 06:59 Intake Total 1999 2250 2470 330 Output Total 4930 4600 8090 550 Balance -2930 -2350 -5620 -220 Weight 247 lb 6.4 oz Intake: IV Fluids 2000 NS (0.9%) 2000 IVPB 1600 260 ABX - VANCOMYCIN 260 NS (0.9%) 1600 Oral 0 650 2210 330 Output: Urine 1580 550 Carden[place] 3350 4600 8090 Other: # Bowel Movements 0 0 0 1 Estimated Stool Amount Small Medium Small # Voids 0 ADLs: Meal Record Start: 11/22/17 18: 31 Freq: DAILY@0900,1400,1800 Status: Active Protocol: Document 11/23/17 13:24 [id number] (Rec: 11/23/17 13:24 [id number] MED-C09) Document 11/23/17 18:00 [id number] (Rec: 11/23/17 23:48 [id number] MED-C09) Document 11/24/17 09:00 [id number] (Rec: 11/24/17 09:57 [id number] MED-C07) Document 11/24/17 15:26 [id number] (Rec: 11/24/17 15:28 [id number] MED-C04) Document 11/24/17 18:00 [id number] (Rec: 11/24/17 18:00 [id number] MED-C04) Document 11/25/17 09:00 [id number] (Rec: 11/25/17 12:31 [id number] MED-C09) Document 11/25/17 13:20 [id number] (Rec: 11/25/17 13:23 [id number] MED-C09) Intake and Output Start: 11/22/17 18: 31 Freq: DAILY@0600,1400,2200 Status: Active Protocol: Document 11/22/17 21:47 [id number] (Rec: 11/22/17 21:48 [id number] MED-C09) Document 11/23/17 06:00 [id number] (Rec: 11/23/17 07:06 [id number] MED-C11) Document 11/23/17 14:00 [id number] (Rec: 11/23/17 17:49 [id number] MED-C11) Document 11/23/17 22:00 [id number] (Rec: 11/23/17 23:52 [id number] MED-C09) Document 11/24/17 06:00 [id number] (Rec: 11/24/17 06:47 [id number] MED-C09) Document 11/24/17 09:56 [id number] (Rec: 11/24/17 09:56 [id number] MED-C07) Document 11/24/17 15:26 [id number] (Rec: 11/24/17 15:28 [id number] MED-C04) Document 11/24/17 21:51 [id number] (Rec: 11/24/17 21:51 [id number] MED-C07) Document 11/24/17 22:00 [id number] (Rec: 11/24/17 23:04 [id number] MED-C11) Document 11/25/17 06:00 [id number] (Rec: 11/25/17 06:53 [id number] MED-C09) Document 11/25/17 13:20 [id number] (Rec: 11/25/17 13:23 [id number] MED-C09) Eyes: No Scleral Icterus, PERRLA Ears/Nose/Mouth/Throat: NL Teeth, Lips, Gums, Clear Oropharnyx, Mucous Membranes Moist Neck: NL Appearance and Movements; NL JVP, Trachea Midline Cardiovascular: NL Sounds; No Murmurs; No JVD, RRR, No Edema Abdominal: NL Sounds; No Tenderness; No Distention, No Hepatosplenomegaly Extremities: No Edema, - - Contractures of B/L hands. [place]-neck like deformity of fingers on right hand. Right thumb wrapped in pressure relieving dressing. Neurological: - - Non-Verbal
--- NOTE | 2017-11-25 15:13 | PN ---
Subjective Date of Service: 11/25/17 Interval History: Alert awake laying in bed in NAD. Pt is nonverbal. appears comfortable. Family History: Unchanged from Admission Social History: Unchanged from Admission Past Medical History: Unchanged from Admission Objective Active Medications: Acetaminophen (Tylenol Adult Liq*) 650 mg PO Q6H PRN PRN Reason: PAIN Last Admin: 11/24/17 21:20 Dose: 650 mg Artificial Tears (Lacrilube Oint*) 1 applic BOTH EYES Q12H PRN PRN Reason: DRY EYE Baclofen (Lioresal Tab*) 20 mg PO BID [facility] Last Admin: 11/25/17 08:29 Dose: 20 mg Benzocaine (Baby Orajel 7.5%*) 1 applic TOPICAL TID [facility] Last Admin: 11/25/17 14:28 Dose: 1 applic Carbidopa/Levodopa (Sinemet 25/100 Tab(*)) 3 tab PO TID [facility] Last Admin: 11/25/17 14:28 Dose: 3 tab Clonazepam (Klonopin Tab(*)) 2 mg PO BID [facility] Last Admin: 11/25/17 08:30 Dose: 2 mg Glycerin (Glycerin Adult Supp*) 1 supp NE DAILY PRN PRN Reason: CONSTIPATION Heparin Sodium (Porcine) (Heparin Vial(*)) 5,000 units SUBCUT Q8H [facility] Last Admin: 11/25/17 11:38 Dose: 5,000 units Cefepime HCl (Maxipime 1 Gm In Dextrose Duplex (*)) 1 gm in 50 mls @ 100 mls/ hr IV Q12H [facility] Last Admin: 11/25/17 11:36 Dose: 100 mls/hr Metronidazole/Sodium Chloride (Flagyl 500 Mg Ivpb*) 500 mg in 100 mls @ 100 mls /hr IVPB 0700,1500,2300 [facility] Last Admin: 11/25/17 06:19 Dose: 100 mls/hr Vancomycin HCl 1,000 mg/ (Sodium Chloride) 250 mls @ 166.667 mls/hr IVPB Q6H [facility] Ibuprofen (Advil Tab*) 400 mg PO TID PRN PRN Reason: PAIN Lactulose (Lactulose*) 15 ml PO DAILY [facility] Last Admin: 11/25/17 08:29 Dose: 15 ml Lisinopril (Prinivil Tab*) 5 mg PO DAILY [facility] Last Admin: 11/25/17 08:31 Dose: 5 mg Lorazepam (Ativan Tab(*)) 1 mg PO QPM [facility] Last Admin: 11/24/17 16:55 Dose: 1 mg Lorazepam (Ativan Inj*) 0.5 mg IV PUSH Q6H PRN PRN Reason: ANXIETY Magnesium Hydroxide (Milk Of Magnesia Liq*) 30 ml PO Q72H PRN PRN Reason: CONSTIPATION Morphine Sulfate (Morphine Oral.Soln 10 Mg*) 5 mg PO Q4H PRN PRN Reason: PAIN Last Admin: 11/25/17 06:16 Dose: 5 mg Morphine Sulfate (Ms Contin(*)) 15 mg PO BID [facility] Last Admin: 11/25/17 08:30 Dose: 15 mg Multivitamins/Minerals (Theragran/Minerals Tab*) 1 tab PO DAILY [facility] Last Admin: 11/25/17 08:30 Dose: 1 tab Omeprazole (Prilosec Cap*) 20 mg PO QAM@0730 [facility] Last Admin: 11/25/17 08:35 Dose: 20 mg Ondansetron HCl (Zofran Odt Tab*) 4 mg SL Q6H PRN PRN Reason: NAUSEA/VOMITING Oxybutynin Chloride (Ditropan Xl Tab*) 10 mg PO DAILY [facility] Last Admin: 11/25/17 08:31 Dose: 10 mg Paroxetine HCl (Paxil Tab*) 10 mg PO DAILY [facility] Last Admin: 11/25/17 08:30 Dose: 10 mg Pharmacy Consult (Vancomycin Per Pharmacy*) 1 note FOLLOW UP . PRN PRN Reason: PER PROTOCOL Pharmacy Profile Note (Vancomycin Trough Check) 1 note FOLLOW UP 0800 ONE Stop: 11/27/17 08:01 Polyvinyl Alcohol (Polyvinyl Alcohol 1.4% Opth*) 1 drop BOTH EYES QID [facility] Last Admin: 11/25/17 14:29 Dose: 1 drop Zolpidem Tartrate (Ambien Tab*) 10 mg PO BEDTIME PRN PRN Reason: INSOMNIA Vital Signs - 8 hr 11/25/17 11/25/17 11/25/17 07:41 07:59 08:30 Temperature 99.2 F Pulse Rate 78 Respiratory 20 14 20 Rate Blood Pressure 124/62 (mmHg) O2 Sat by Pulse 93 Oximetry 11/25/17 11/25/17 11/25/17 10:44 10:47 12:05 Temperature Pulse Rate 76 Respiratory 20 20 21 Rate Blood Pressure 149/70 (mmHg) O2 Sat by Pulse 93 Oximetry 11/25/17 14:35 Temperature 98.8 F Pulse Rate Respiratory Rate Blood Pressure (mmHg) O2 Sat by Pulse Oximetry Oxygen Devices in Use Now: None Appearance: alert, NAD Eyes: No Scleral Icterus, PERRLA Respiratory: Symmetrical Chest Expansion and Respiratory Effort, Clear to Auscultation Cardiovascular: NL Sounds; No Murmurs; No JVD, RRR Abdominal: NL Sounds; No Tenderness; No Distention Neurological: - - alert. face mask. nonverbal. arms and legs contracted Lines/Tubes/Other Access: Clean, Dry and Intact Peripheral IV Nutrition: Taking PO's Result Diagrams: 11/25/17 06:56 11/25/17 06:56 Additional Lab and Data: Lab Results Microbiology and Other Data: Microbiology 11/22/17 18:51 Nasal Screen MRSA (PCR)(ALYSE) - Final Nasal Mrsa Detected Assess/Plan/Problems-Billing Assessment: 62 yo male with advanced Parkinsons with progressive supranuclear palsy, dementia, HTN, anxiety who presened on 11/22 from [facility] after being sent to the wound clinic for sacral decubitus ulcer. - Patient Problems (1) Decubital ulcer Comment: - concern for possible osteo on CT scan. patient was started on broad spectrum abx on admission. plan is for Hospice and comfort measures. Pt lost IV and unable to place new IV. ok to not have IV. Plan to DC IV abx and start oral. Discussed with Dr. Camargo who thinks it is worth a course of PO abx as maybe this would help promote some healing. - Appreciate surgical team consult - pts wound was debrided today - ID consult pending -Continue aggressive pressure relief. (2) Parkinson disease Comment: Continue sinemet. (3) Anxiety Comment: Continue clonazepam BID and ativan prn (4) Constipation Comment: Chronic Constipation Continued scheduled and PRN laxatives. Small BM yesterday. (5) HTN (hypertension) Comment: Normotensive, Continue Lisinopril. (6) PSP (progressive supranuclear palsy) Comment: At baseline the patient is non-verbal 2/2 dementia. Conitnue baclofen, clonazepam and sinemet. Patients wanting a palliative approach. (7) DNR (do not resuscitate) Comment: (8) DVT prophylaxis Comment: SQ heparin Status and Disposition: Inpatient To [facility] at discharge with Hospice. possibly tomorrow
--- NOTE | 2017-11-25 17:11 | PN ---
Progress Note - Progress Note Date of Service: 11/25/17 Note: Surgery Progress: S: patient seen w/ and examined by Dr. Lynn. Plan per Dr. Camargo is for hospice at his SNF. O: sacral wound examined and sharply debrided by Dr. Lynn of devitalized tissue; small amt of bloody oozing; wound packed w/ 2 4x4 gauze pads. A/P: cont wound management, pressure reduction measures; abx per medicine/ID; disposition per hospitalist/hospice.
[2017-11-25] MEDS ORDERED: Morphine ORAL CONCENTRATE* 5 MG/0.25 ML ORAL.SYRIN SL PRN (17:32)
[2017-11-25] MEDS: LORazepam TAB(*) 1 MG PO SCH (17:35)
[2017-11-25] MEDS: Amoxicillin/Clavulanate TAB* 875 MG PO SCH (21:27)
[2017-11-25] MEDS: metroNIDAZOLE TAB* 250 MG PO SCH (21:27)
[2017-11-26] MEDS: LORazepam TAB(*) 0.5 MG PO PRN ×2 (03:41→23:37)
[2017-11-26] MEDS: Heparin VIAL(*) 5000 UNITS/ML VIAL (FIVE THOUSAND) SUBCUT SCH ×3 (07:25→18:14)
[2017-11-26] MEDS: Amoxicillin/Clavulanate TAB* 875 MG PO SCH ×2 (09:00→21:12)
[2017-11-26] MEDS: Omeprazole CAP* 20 MG PO SCH (09:00)
[2017-11-26] MEDS: Benzocaine (DENTAL) 7.5%* 10 GM TOP.GEL TOPICAL SCH ×3 (09:00→21:27)
[2017-11-26] MEDS: Lactulose* 15 ML UDC PO SCH (09:00)
[2017-11-26] MEDS: Artificial Tears* 15 ML BTL BOTH EYES SCH ×4 (09:00→21:15)
[2017-11-26] MEDS: Oxybutynin XL TAB* 5 MG PO SCH (09:01)
[2017-11-26] MEDS: Multivitamins/Minerals TAB PO SCH (09:01)
[2017-11-26] MEDS: Carbidopa/Levodop 25/100 MG TAB(*) PO SCH ×3 (09:01→21:09)
[2017-11-26] MEDS: metroNIDAZOLE TAB* 250 MG PO SCH (09:01)
[2017-11-26] MEDS: clonazePAM TAB(*) 1 MG PO SCH ×2 (09:01→21:12)
[2017-11-26] MEDS: Morphine TAB Extended Release (*) 15 MG TAB.ER PO SCH ×2 (09:01→21:11)
[2017-11-26] MEDS: Baclofen TAB* 20 MG PO SCH ×2 (09:01→21:09)
[2017-11-26] MEDS: Lisinopril TAB* 5 MG PO SCH (09:01)
[2017-11-26] MEDS: PARoxetine HCL TAB* 10 MG PO SCH (09:02)
--- NOTE | 2017-11-26 12:32 | DCNOTE ---
Subjective Date of Service: 11/26/17 Interval History: pt awake and alert sitting up in bed. and friends at bedside. Discussed plan for Hospice and return to [facility] tomorrow. Plan is for a palliative approach. Family History: Unchanged from Admission Social History: Unchanged from Admission Past Medical History: Unchanged from Admission Objective Active Medications: Acetaminophen (Tylenol Adult Liq*) 650 mg PO Q6H PRN PRN Reason: PAIN Last Admin: 11/24/17 21:20 Dose: 650 mg Amoxicillin/Clavulanate Potassium (Augmentin Tab*) 875 mg PO BID [facility] Last Admin: 11/26/17 09:00 Dose: 875 mg Artificial Tears (Lacrilube Oint*) 1 applic BOTH EYES Q12H PRN PRN Reason: DRY EYE Baclofen (Lioresal Tab*) 20 mg PO BID [facility] Last Admin: 11/26/17 09:01 Dose: 20 mg Benzocaine (Baby Orajel 7.5%*) 1 applic TOPICAL TID [facility] Last Admin: 11/26/17 09:00 Dose: 1 applic Carbidopa/Levodopa (Sinemet 25/100 Tab(*)) 3 tab PO TID [facility] Last Admin: 11/26/17 09:01 Dose: 3 tab Clonazepam (Klonopin Tab(*)) 2 mg PO BID [facility] Last Admin: 11/26/17 09:01 Dose: 2 mg Glycerin (Glycerin Adult Supp*) 1 supp OR DAILY PRN PRN Reason: CONSTIPATION Heparin Sodium (Porcine) (Heparin Vial(*)) 5,000 units SUBCUT Q8H [facility] Last Admin: 11/26/17 12:06 Dose: 5,000 units Ibuprofen (Advil Tab*) 400 mg PO TID PRN PRN Reason: PAIN Lactulose (Lactulose*) 15 ml PO DAILY [facility] Last Admin: 11/26/17 09:00 Dose: 15 ml Lisinopril (Prinivil Tab*) 5 mg PO DAILY [facility] Last Admin: 11/26/17 09:01 Dose: 5 mg Lorazepam (Ativan Tab(*)) 0.5 mg PO Q6H PRN PRN Reason: ANXIETY Last Admin: 11/26/17 03:41 Dose: 0.5 mg Magnesium Hydroxide (Milk Of Magnesia Liq*) 30 ml PO Q72H PRN PRN Reason: CONSTIPATION Metronidazole (Flagyl Tab*) 500 mg PO TID [facility] Last Admin: 11/26/17 09:01 Dose: 500 mg Morphine Sulfate (Morphine Oral.Soln 10 Mg*) 5 mg PO Q4H PRN PRN Reason: PAIN Last Admin: 11/25/17 06:16 Dose: 5 mg Morphine Sulfate (Ms Contin(*)) 15 mg PO BID [facility] Last Admin: 11/26/17 09:01 Dose: 15 mg Multivitamins/Minerals (Theragran/Minerals Tab*) 1 tab PO DAILY [facility] Last Admin: 11/26/17 09:01 Dose: 1 tab Omeprazole (Prilosec Cap*) 20 mg PO QAM@0730 [facility] Last Admin: 11/26/17 09:00 Dose: 20 mg Ondansetron HCl (Zofran Odt Tab*) 4 mg SL Q6H PRN PRN Reason: NAUSEA/VOMITING Oxybutynin Chloride (Ditropan Xl Tab*) 10 mg PO DAILY [facility] Last Admin: 11/26/17 09:01 Dose: 10 mg Paroxetine HCl (Paxil Tab*) 10 mg PO DAILY [facility] Last Admin: 11/26/17 09:02 Dose: 10 mg Polyvinyl Alcohol (Polyvinyl Alcohol 1.4% Opth*) 1 drop BOTH EYES QID [facility] Last Admin: 11/26/17 12:06 Dose: 1 drop Zolpidem Tartrate (Ambien Tab*) 10 mg PO BEDTIME PRN PRN Reason: INSOMNIA Vital Signs - 8 hr 11/26/17 11/26/17 11/26/17 07:24 07:25 08:00 Temperature 99.5 F Pulse Rate 83 Respiratory 20 20 19 Rate Blood Pressure 123/80 (mmHg) O2 Sat by Pulse 94 Oximetry 11/26/17 11/26/17 11/26/17 09:01 10:14 11:41 Temperature Pulse Rate Respiratory 18 18 16 Rate Blood Pressure (mmHg) O2 Sat by Pulse Oximetry Oxygen Devices in Use Now: None Appearance: chronically ill male laying in bed in [facility], appears comfortable Eyes: No Scleral Icterus, PERRLA Ears/Nose/Mouth/Throat: NL Teeth, Lips, Gums, Mucous Membranes Moist Respiratory: Symmetrical Chest Expansion and Respiratory Effort, Clear to Auscultation Cardiovascular: NL Sounds; No Murmurs; No JVD, RRR, No Edema Abdominal: NL Sounds; No Tenderness; No Distention Extremities: No Edema, No Clubbing, Cyanosis, - - extremities are contracted Neurological: - - alert Nutrition: Taking PO's Result Diagrams: 11/25/17 06:56 11/25/17 06:56 Additional Lab and Data: Lab Results Microbiology and Other Data: Microbiology 11/22/17 18:51 Nasal Screen MRSA (PCR)(ALYSE) - Final Nasal Mrsa Detected Assess/Plan/Problems-Billing Assessment: 62 yo male with advanced Parkinsons with progressive supranuclear palsy, dementia, HTN, anxiety who presened on 11/22 from [facility] after being sent to the wound clinic for sacral decubitus ulcer. - Patient Problems (1) Decubital ulcer Comment: - concern for possible osteo on CT scan. patient was started on broad spectrum abx on admission. plan is for Hospice and comfort measures. Pt lost IV and unable to place new IV. ok to not have IV. Plan to DC IV abx and start oral. Discussed with Dr. Camargo who thinks it is worth a course of PO abx as maybe this would help promote some healing. - Appreciate surgical team consult - pts wound was debrided yesterday - ID side consulted - recommends Augmentin x 10 days -Continue aggressive pressure relief. (2) Parkinson disease Comment: Continue sinemet. (3) Anxiety Comment: Continue clonazepam BID and ativan prn (4) Constipation Comment: Chronic Constipation Continued scheduled and PRN laxatives. Small BM yesterday. (5) HTN (hypertension) Comment: Normotensive, Continue Lisinopril. (6) PSP (progressive supranuclear palsy) Comment: At baseline the patient is non-verbal 2/2 dementia. Conitnue baclofen, clonazepam and sinemet. Patients wanting a palliative approach. (7) DNR (do not resuscitate) Comment: (8) DVT prophylaxis Comment: SQ heparin Status and Disposition[facility] with [facility] tomorrow
--- NOTE | 2017-11-26 14:11 | DS ---
DISCHARGE SUMMARY: DATE OF ADMISSION: 11/22/17. DATE OF DISCHARGE: 11/26/17. PROVIDER: David Bansal NP. ATTENDING PHYSICIAN: Dr. Friend * (report dictated by David Bansal NP). PRIMARY CARE PROVIDER: [facility]. DISCHARGE DIAGNOSIS: 1. Sacral decubitus ulcer with possible osteomyelitis with plan for hospice. 2. Advanced Parkinson's disease. 3. Progressive supranuclear palsy. 4. Dementia. 5. Hypertension. 6. Psoriasis. 7. Insomnia. 8. Anxiety. DISCHARGE MEDICATIONS: 1. Ambien 12.5 mg p.o. at bedtime. 2. Paxil 10 mg p.o. daily. 3. Multivitamin with mineral 1 tab p.o. daily. 4. Oxybutynin XL 10 mg p.o. daily. 5. Omeprazole 20 mg p.o. q.a.m. 6. Natural Tears p.r.n. 7. MS Contin 15 mg p.o. b.i.d. 8. Morphine oral concentrate 0.25 mL p.o. q. 4 hours p.r.n. 9. Mometasone 0.1% topical b.i.d. 10. Milk of magnesia 30 mL p.o. q. 72 hours p.r.n. constipation. 11. Lorazepam 1 mg p.o. q. p.m. 12. Lisinopril 5 mg p.o. daily. 13. Lactulose 15 mg p.o. daily. 14. Ketoconazole 2% one application topically b.i.d. 15. Ibuprofen 400 mg p.o. t.i.d. p.r.n. 16. Klonopin 2 mg p.o. b.i.d. 17. Glycerin adult suppository 1 suppository per rectum daily p.r.n. constipation. 18. Carbidopa/levodopa 25/300 mg 3 tablets p.o. t.i.d. 19. Calcium alginate powder topically daily, p.r.n. 20. Baclofen 20 mg p.o. b.i.d. 21. Acetaminophen 650 mg p.o. q. 4 hours p.r.n. pain or fever. New medication: 1. Augmentin 875 mg p.o. b.i.d. x10 days. ALLERGIES: To SULFA. HISTORY OF PRESENT ILLNESS AND HOSPITAL COURSE: Please see history and physical by Dr. Loren Sanchez, [employer] for full admission details, but in summary, this is a 62-year- old female with a past medical history of advanced Parkinson's and progressive supranuclear palsy, nonverbal, dementia, hypertension, and anxiety, who presented to the hospital on 11/22/17 from [facility] after being sent to the wound care clinic and evaluation of a sacral decubitus ulcer and there was a concern for worsening of the wound and possible osteomyelitis. The patient was sent to the emergency department. He underwent a pelvic CT scan that showed "while there is no appreciable erosion or periosteal reaction, there is a large decubitus ulcer that extends to the last 2 costovertebral bodies, suspicious for osteomyelitis involving the last 2 costovertebral bodies. Perirectal inflammatory change. Spondylosis with spondylolisthesis." The patient was seen in consultation by our surgical team on 11/25/17, in which the patient's wound was sharply debrided by Dr. Lynn of devitalized tissue. Plan is to continue wound management, pressure reduction measures. I did side consult Dr. Bay, Infectious Diseases, who recommended 10 days of Augmentin 875 mg p.o. b.i.d. The patient had a consultation by hospice physician, Dr. Camargo and a decision was made that the patient will be placed on hospice. There is an agreement that this patient will be continued with care of treatment as well as the course of antibiotics as this may the wound heal. Continue supportive treatment, as well as pain management and treating the patient's underlying anxiety. The patient has remained hemodynamically stable throughout the hospitalization. He was noted to have a temperature of 102.0 on admission and this has resolved. He has had no leukocytosis on admission. He was noted to be anemic, most likely iron deficient, as his iron level did result low at 31. Most likely a combination of both iron deficiency anemia and anemia of chronic disease. His ferritin was noted to be high at 353 and noted to have a pre- albumin of 12. The patient is very thin and almost cachectic with very stiff rigid extremities. I do agree that the plan for palliative care and hospice moving forward will be best for this patient. DISCHARGE PLAN: 1. The patient will be discharged back to [facility]. He is stable for transport today. 2. Augmentin 850 mg p.o. b.i.d. x10 days. 3. Continue frequent changing of positions with pressure relieving techniques, off the sacral area as this will provide comfort to the patient and hopefully encourage wound healing. Please note the patient's pre-albumin is low and therefore most likely he will have poor healing abilities. Hospice will sign on the patient in the group home. TIME SPENT: Approximately 60 minutes was spent on this discharge. DAVID BANSAL, MAREN [id number]/CPS #: [id number] AIYANA
[2017-11-27] MEDS: Heparin VIAL(*) 5000 UNITS/ML VIAL (FIVE THOUSAND) SUBCUT SCH ×2 (02:48→11:20)
[2017-11-27 07:16] VITALS: BP 114/56
[2017-11-27] MEDS ORDERED: Vancomycin Trough Check NOTE FOLLOW UP ONE (08:00)
[2017-11-27] MEDS: PARoxetine HCL TAB* 10 MG PO SCH (08:14)
[2017-11-27] MEDS: clonazePAM TAB(*) 1 MG PO SCH (08:14)
[2017-11-27] MEDS: Lisinopril TAB* 5 MG PO SCH (08:14)
[2017-11-27] MEDS: Baclofen TAB* 20 MG PO SCH (08:14)
[2017-11-27] MEDS: Multivitamins/Minerals TAB PO SCH (08:14)
[2017-11-27] MEDS: Carbidopa/Levodop 25/100 MG TAB(*) PO SCH (08:14)
[2017-11-27] MEDS: Amoxicillin/Clavulanate TAB* 875 MG PO SCH (08:14)
[2017-11-27] MEDS: Omeprazole CAP* 20 MG PO SCH (08:14)
[2017-11-27] MEDS: Morphine TAB Extended Release (*) 15 MG TAB.ER PO SCH (08:15)
[2017-11-27] MEDS: Oxybutynin XL TAB* 5 MG PO SCH (08:15)
[2017-11-27] MEDS: Lactulose* 15 ML UDC PO SCH (08:15)
[2017-11-27] MEDS: Artificial Tears* 15 ML BTL BOTH EYES SCH (08:16)
[2017-11-27] MEDS: Benzocaine (DENTAL) 7.5%* 10 GM TOP.GEL TOPICAL SCH (08:27)
== END 2017-11-27 10:37 | DRG 344 ==
LOC: ED 15:00 → MED 17:17
PROVIDERS: ADMIT Student in an Organized Health Care Education/Training Program; ATTEND Internal Medicine
PROC: 0JB70ZZ Excision of Back Subcutaneous Tissue and Fascia, Open Approach (ICD-10-PCS; principal; 2017-11-25)
DX: M86.8X8 Other osteomyelitis, other site (principal); L89.154 Pressure ulcer of sacral region, stage 4; G23.1 Progressive supranuclear ophthalmoplegia [Steele-Richardson-Olszewski]; N18.4 Chronic kidney disease, stage 4 (severe); G20 Parkinson's disease; F02.80 Dementia in other diseases classified elsewhere, unspecified severity, without behavioral disturbance, psychotic disturbance, mood disturbance, and anxiety; L40.9 Psoriasis, unspecified; G47.00 Insomnia, unspecified; F41.9 Anxiety disorder, unspecified; M43.18 Spondylolisthesis, sacral and sacrococcygeal region; M47.898 Other spondylosis, sacral and sacrococcygeal region; I12.9 Hypertensive chronic kidney disease with stage 1 through stage 4 chronic kidney disease, or unspecified chronic kidney disease; Z66 Do not resuscitate; D63.1 Anemia in chronic kidney disease; D50.9 Iron deficiency anemia, unspecified; K59.00 Constipation, unspecified; G89.29 Other chronic pain; Z96.649 Presence of unspecified artificial hip joint; Z79.1 Long term (current) use of non-steroidal anti-inflammatories (NSAID); Z79.02 Long term (current) use of antithrombotics/antiplatelets; Z79.891 Long term (current) use of opiate analgesic; Z79.899 Other long term (current) drug therapy; Z88.2 Allergy status to sulfonamides
CPT/HCPCS: 36415; 72193; 80048; 80202; 82040; 82272; 82607; 82728; 82746; 83540; 83550; 83605; 84134; 85025; 85610; 85730; 86140; 87040; 87641; 99284; A9270-GY; J0692; J1644; J2543; J3370; J3490; Q9967